=== PATIENT | male | born 1970 | race Caucasian/White ===

== ENCOUNTER → 2020-01-31 | Emergency (ER) | payer MEDICAID, OTHER ==
[~2020-01-31] VITALS: Ht 182.9 cm; Wt 86.2 kg
[~2020-01-31] MED LIST: IOHEXOL 300 MG/ML 100ML BOTTLE IJ ONE; MAGNESIUM CITRATE SOLUTION 300 ML BTL PO ONE; MORPHINE SULFATE 4 MG/ML SYR/VIAL IV ONE; ONDANSETRON HCL 4 MG/2 ML VIAL IV ONE; SODIUM CHLORIDE 0.9% 1,000 ML IVB ONE
[2020-01-31 20:45] LABS: Basophils # (auto) 0.1 10 ^3/uL (0-0.2); Basophils % (auto) 0.3 % (0.0-2.0); Eosinophils # (auto) 0 10 ^3/uL (0-0.8); Eosinophils % (auto) 0.1 % (0.0-7.0); Hematocrit 37.9 % (41.0-53.0); Hemoglobin 12.7 g/dL (13.5-17.5); Lymphocytes # (auto) 1.4 10 ^3/uL (0.4-5.4); Lymphocytes % (auto) 8.1 % (10.0-50.0); Mean Corpuscular Hemoglobin 30.3 pg (28.0-32.0); Mean Corpuscular Hgb Conc. 33.4 g/dL (32.0-36.0); Mean Corpuscular Volume 90.7 fL (80.0-100.0); Monocytes # (auto) 1.8 10 ^3/uL (0-1.3); Monocytes % (auto) 10.2 % (0.0-12.0); Neutrophils # (auto) 14.1 10 ^3/uL (1.6-8.6); Neutrophils % (auto) 81.3 % (37.0-80.0); Nucleated Red Blood Cells % 0.1 %; Platelet Count (auto) 340 10^3/uL (140-450); Red Blood Cells 4.18 10^6/uL (4.5-5.90); Red Cell Distribution Width 14.3 % (11.8-14.3); White Blood Cell 17.4 10^3/uL (4.4-10.8)
[2020-01-31 20:57] LABS: INR 1.08 (0.9-1.15); Partial Thromboplastin Time 35.5 sec (23.64-32.05)
[2020-01-31 21:00] LABS: Alanine Aminotransferase 31 U/L (16-61); Albumin 2.7 g/dL (3.4-5.0); Amylase 26 U/L (25-115); Anion Gap 9 (5-15); Aspartate Aminotransferase 13 U/L (15-37); BUN/Creatinine Ratio 16.7; Blood Urea Nitrogen 19 mg/dL (7-18); Calcium 8.7 mg/dL (8.5-10.1); Carbon Dioxide 22 mmol/L (21-32); Chloride 107 mmol/L (98-107); GFR African American 87 mL/min; GFR Non-African American 72 mL/min; Glucose 279 mg/dL (74-106); Lipase 49 U/L (73-393); Potassium 3.2 mmol/L (3.5-5.1); Sodium 138 mmol/L (136-145)
[2020-01-31 21:05] LABS: Alkaline Phosphatase 189 U/L (45-117); Bilirubin, Total 0.7 mg/dL (0.2-1.0); Total Protein 7.7 g/dL (6.4-8.2)
[2020-02-01 00:07] VITALS: BP 164/94
== END | disposition home or self-care (01) ==
LOC: EDBD 18:58 → ER 18:58
DX: K59.00 Constipation, unspecified (principal); R10.13 Epigastric pain; R11.2 Nausea with vomiting, unspecified
CPT/HCPCS: 36415; 74176; 80053; 80320; 82150; 83605; 83690; 84484; 85025; 85610; 85730; 96361; 96374; 96375; 99284; Q9967; J2405

== ENCOUNTER 2021-05-28 11:52 | Emergency (ER) | payer MEDICAID ==
[~2021-05-28] VITALS: Ht 188 cm; Wt 89.4 kg
[2021-05-28] MEDS ORDERED: SODIUM CHLORIDE 0.9% 1,000 ML IVB ONE (12:15)
[2021-05-28] MEDS ORDERED: MORPHINE SULFATE 4 MG/ML SYR/VIAL IV ONE (12:15)
[2021-05-28] MEDS ORDERED: ONDANSETRON HCL 4 MG/2 ML VIAL IV ONE (12:15)
[2021-05-28 13:17] LABS: Basophils # (auto) 0.1 10 ^3/uL (0-0.2); Basophils % (auto) 1.1 % (0.0-2.0); Eosinophils # (auto) 0 10 ^3/uL (0-0.8); Eosinophils % (auto) 0.2 % (0.0-7.0); Hematocrit 44.6 % (41.0-53.0); Hemoglobin 15.1 g/dL (13.5-17.5); Lymphocytes # (auto) 2.9 10 ^3/uL (0.4-5.4); Lymphocytes % (auto) 23.3 % (10.0-50.0); Mean Corpuscular Hemoglobin 30.4 pg (28.0-32.0); Mean Corpuscular Hgb Conc. 33.8 g/dL (32.0-36.0); Monocytes # (auto) 1.3 10 ^3/uL (0-1.3); Monocytes % (auto) 10.6 % (0.0-12.0); Neutrophils % (auto) 64.8 % (37.0-80.0); Nucleated Red Blood Cells % 0.1 %; Red Blood Cells 4.96 10^6/uL (4.5-5.90); Red Cell Distribution Width 13.5 % (11.8-14.3); White Blood Cell 12.4 10^3/uL (4.4-10.8)
[2021-05-28 13:19] VITALS: BP 125/85
[2021-05-28 13:46] LABS: Calcium 10.2 mg/dL (8.5-10.1); Potassium 3.2 mmol/L (3.5-5.1)
[2021-05-28 13:48] LABS: BUN/Creatinine Ratio 17.7; Bilirubin, Total 0.9 mg/dL (0.2-1.0)
[2021-05-28 16:52] LABS: Urine Bacteria NONE SEEN /hpf (None Seen); Urine Blood Negative /uL (Negative); Urine Hyaline Cast FEW /lpf (0 - 2); Urine Mucus FEW (None Seen); Urine Specific Gravity 1.029 (1.001-1.035); Urine WBC 2 /hpf (0 - 3)
== END 2021-05-28 16:40 | disposition left against medical advice (07) ==
LOC: ER 11:52
DX: R10.84 Generalized abdominal pain (principal); F17.210 Nicotine dependence, cigarettes, uncomplicated; F12.10 Cannabis abuse, uncomplicated; E11.9 Type 2 diabetes mellitus without complications; I10 Essential (primary) hypertension; Z20.822 Contact with and (suspected) exposure to COVID-19; Z53.29 Procedure and treatment not carried out because of patient's decision for other reasons
CPT/HCPCS: 36415; 74176; 80053; 81001; 83690; 85025; 87426; 93005

== ENCOUNTER 2021-05-29 07:38 | Emergency (ER) | payer MEDICAID ==
[~2021-05-29] VITALS: Ht 188 cm; Wt 81.2 kg
[2021-05-29] MEDS ORDERED: SODIUM CHLORIDE 0.9% 1,000 ML IV ONE (08:00)
[2021-05-29] MEDS ORDERED: DONNATAL 5ml ORAL Elix (BELLADONNA ALK-PHENOBARB) PO ONE (08:00)
[2021-05-29] MEDS ORDERED: SODIUM CHLORIDE 0.9% 500 ML IVB ONE (08:00)
[2021-05-29] MEDS ORDERED: HYDROmorphone HCL 2 MG/ML VL IV ONE (08:00)
[2021-05-29] MEDS ORDERED: METOCLOPRAMIDE HCL 5MG/ml INJ 2ml VIAL IV ONE (08:00)
[2021-05-29] MEDS ORDERED: ALUM & MAG HYDROX-SIMETH LIQ(MAALOX) 30 ML PO ONE (08:00)
[2021-05-29] MEDS ORDERED: PANTOPRAZOLE 40 MG TAB PO ONE (08:00)
[2021-05-29 09:32] LABS: Basophils # (auto) 0 10 ^3/uL (0-0.2); Basophils % (auto) 0.3 % (0.0-2.0); Eosinophils # (auto) 0.1 10 ^3/uL (0-0.8); Eosinophils % (auto) 0.6 % (0.0-7.0); Hematocrit 42.3 % (41.0-53.0); Hemoglobin 15.1 g/dL (13.5-17.5); Lymphocytes # (auto) 3.6 10 ^3/uL (0.4-5.4); Lymphocytes % (auto) 35.2 % (10.0-50.0); Mean Corpuscular Hemoglobin 31.6 pg (28.0-32.0); Mean Corpuscular Hgb Conc. 35.7 g/dL (32.0-36.0); Mean Corpuscular Volume 88.4 fL (80.0-100.0); Monocytes % (auto) 10.2 % (0.0-12.0); Neutrophils # (auto) 5.5 10 ^3/uL (1.6-8.6); Neutrophils % (auto) 53.7 % (37.0-80.0); Nucleated Red Blood Cells % 0.1 %; Red Blood Cells 4.78 10^6/uL (4.5-5.90); Red Cell Distribution Width 13.6 % (11.8-14.3); White Blood Cell 10.3 10^3/uL (4.4-10.8)
[2021-05-29 09:45] LABS: Urine WBC None Seen /hpf (0 - 3)
[2021-05-29 10:04] LABS: Albumin 3.9 g/dL (3.4-5.0); Calcium 9.6 mg/dL (8.5-10.1); Magnesium 1.8 mg/dL (1.6-2.6)
[2021-05-29 10:11] LABS: BUN/Creatinine Ratio 15.1; Bilirubin, Total 1.1 mg/dL (0.2-1.0)
[2021-05-29 10:15] LABS: Urine Bacteria NONE SEEN /hpf (None Seen); Urine Blood Negative /uL (Negative); Urine Hyaline Cast FEW /lpf (0 - 2); Urine Mucus FEW (None Seen); Urine Specific Gravity 1.023 (1.001-1.035)
[2021-05-29] MEDS ORDERED: POTASSIUM EFFERVESENT TAB 25 MEQ PO ONE (10:15)
[2021-05-29 13:15] VITALS: BP 132/84
== END 2021-05-29 14:07 | disposition home or self-care (01) ==
LOC: ER 07:38
DX: N40.0 Benign prostatic hyperplasia without lower urinary tract symptoms (principal); E11.65 Type 2 diabetes mellitus with hyperglycemia; E87.6 Hypokalemia; E87.1 Hypo-osmolality and hyponatremia; F17.210 Nicotine dependence, cigarettes, uncomplicated; F12.10 Cannabis abuse, uncomplicated
CPT/HCPCS: 36415; 71046; 80053; 81001; 82962; 83690; 83735; 85025; 93005; 96361; 96374; 96375; 99285; J1170; J2765; J7030

== ENCOUNTER 2024-08-30 12:30 | Inpatient (IN) | payer MEDICAID ==
[~2024-08-30] VITALS: Ht 185.4 cm; Wt 91.3 kg
[2024-08-30] MEDS: SODIUM CHLORIDE 0.9% 1,000 ML IV ONE (14:09)
[2024-08-30] MEDS: FAMOTIDINE (10MG/ML) 2ML VL IV ONE (14:26)
[2024-08-30] MEDS: ONDANSETRON HCL 4 MG/2 ML VIAL IV ONE (14:26)
[2024-08-30] MEDS: MORPHINE SULFATE 4 MG/ML SYR/VIAL IV ONE (14:28)
[2024-08-30 15:10] LABS: Basophils # (auto) 0 10 ^3/uL (0-0.2); Basophils % (auto) 0.2 % (0.0-2.0); Eosinophils # (auto) 0 10 ^3/uL (0-0.8); Eosinophils % (auto) 0.1 % (0.0-7.0); Hematocrit 36.7 % (41.0-53.0); Hemoglobin 12.5 g/dL (13.5-17.5); Lymphocytes # (auto) 0.9 10 ^3/uL (0.4-5.4); Lymphocytes % (auto) 6.2 % (10.0-50.0); Mean Corpuscular Hemoglobin 31.2 pg (28.0-32.0); Mean Corpuscular Hgb Conc. 33.9 g/dL (32.0-36.0); Mean Corpuscular Volume 91.9 fL (80.0-100.0); Monocytes # (auto) 1.2 10 ^3/uL (0-1.3); Neutrophils # (auto) 11.8 10 ^3/uL (1.6-8.6); Neutrophils % (auto) 84.5 % (37.0-80.0); Platelet Count (auto) 547 10^3/uL (140-450); Red Blood Cells 3.99 10^6/uL (4.5-5.90); Red Cell Distribution Width 13.8 % (11.8-14.3); White Blood Cell 13.9 10^3/uL (4.4-10.8)
[2024-08-30 15:22] LABS: Alanine Aminotransferase 24 U/L (7-40); Albumin 3.6 g/dL (3.2-4.8); Anion Gap 9 (5-15); Aspartate Aminotransferase 29 U/L (13-40); BUN/Creatinine Ratio 17.2 (10.0-20.0); Calcium 8.8 mg/dL (8.7-10.4); Carbon Dioxide 25 mmol/L (20-31); Lipase 26 U/L (12-53)
[2024-08-30 15:23] LABS: Total Protein 7.2 g/dL (5.7-8.2)
[2024-08-30 15:28] LABS: Alkaline Phosphatase 269 U/L (46-116); Bilirubin, Total 1.5 mg/dL (0.2-1.0); Blood Urea Nitrogen 26 mg/dL (9-23); Chloride 90 mmol/L (98-107); Potassium 3.1 mmol/L (3.5-5.1); Sodium 124 mmol/L (136-145)
[2024-08-30 15:30] LABS: Glucose 485 mg/dL (74-106)
[2024-08-30 15:59] LABS: Lactic Acid w/Reflex 2.3 mmol/L (0.4-2.0)
--- NOTE | 2024-08-30 16:24 | ED.PDOC ---
History of Present Illness HPI Comments 54-year-old male with HTN, DM presents with a chief complaint of nausea, vomiting, diarrhea, cough, body aches, and abdominal pain. Patient reports that his abdominal pain is localized to his lower abdomen, non-radiating, and describes as aching. Patient reports that he has had these symptoms for the past x 3 weeks. Patient is not actively vomiting upon chairside evaluation. 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 No other symptoms or modifying factors present at this time. Chief Complaint: Nausea/Vomiting Time Seen by MD: 16:09 Primary Care Provider: NONE Reviewed Notes: Medications, Allergies Allergies: Coded Allergies: NO KNOWN ALLERGIES (Unverified , 01/31/20) Information Source: Patient Mode of Arrival: Carried Severity: Moderate Timing: Days Duration: Since onset Prehospital treatment: None Past Medical History PAST MEDICAL HISTORY: DM, HTN, Denies Family History Family History: Unknown Social History Smoker: Cigarettes Alcohol: Occasionally Drugs: Marijuana, Methamphetamine Lives In: Home Constitutional: reports: others (body aches ); denies: chills, diaphoresis, fatigue, fever, malaise, sweats, weakness EENTM: denies: blurred vision, double vision, ear bleeding, ear discharge, ear drainage, ear pain, ear ringing, eye pain, eye redness, hearing loss, mouth pain, mouth swelling, nasal discharge, nose bleeding, nose congestion, nose pain, photophobia, tearing, throat pain, throat swelling, voice changes, others Respiratory: reports: cough; denies: hemoptysis, orthopnea, SOB at rest, shortness of breath, SOB with excertion, stridor, wheezing, others Cardiovascular: denies: chest pain, dizzy spells, diaphoresis, Dyspnea on exertion, edema, irregular heart beat, left arm pain, lightheadedness, palpitations, PND, syncope, others Gastrointestinal: reports: abdominal pain, diarrhea, nausea, vomiting; denies: abdomen distended, blood streaked bowels, constipated, dysphagia, difficulty swallowing, hematemesis, melena, poor appetite, poor fluid intake, rectal bleeding, rectal pain, others Genitourinary: denies: burning, dysuria, flank pain, frequency, hematuria, incontinence, penile discharge, penile sore, pain, testicle pain, testicle swelling, urgency, others Neurological: denies: dizziness, fainting, headache, left sided numbness, left sided weakness, numbness, paresthesia, pre-existing deficit, right sided numbness, right sided weakness, seizure, speech problems, tingling, tremors, weakness, others Musculoskeletal: denies: back pain, gout, joint pain, joint swelling, muscle pa in, muscle stiffness, neck pain, others Integumetry: denies: bruises, change in color, change in hair/nails, dryness, laceration, lesions, lumps, rash, wounds, others Allergic/Immunocompromised: denies: Difficulty Healing, Frequent Infections, Hives, Itching, others Hematologic/Lymphatic: denies: anemia, blood clots, easy bleeding, easy bruising, swollen glands, others Endocrine: denies: excessive hunger, excessive sweating, excessive thirst, excessive urination, flushing, intolerance to cold, intolerance to heat, unexplained weight gain, unexplained weight loss, others Psychiatric: denies: anxiety, bipolar disorder, depression, hopeless, panic disorder, schizophrenia, sleepless, suicidal, others All Other Systems: Reviewed and Negative Physical Exam General Appearance: Mild Distress HEENT: Other (Dry mucous membranes) Neck: Full Range of Motion, Normal Inspection Respiratory: Decreased Breath Sounds, No Accessory Muscle Use, No Respiratory Distress, Normal Breath Sounds Cardiovascular: No Edema, No JVD, Regular Rate/Rhythm Breast Exam: Deferred Gastrointestinal: Soft, Suprapubic, Tenderness Genitalia: Deferred Pelvic: Deferred Rectal: Deferred Extremities: Normal inspection, Normal range of motion, Non-tender, No pedal edema Neurologic: Alert (Oriented x4), Other (Moves all extremities. No gross focal deficit.) Cerebellar Function: NOT DONE Reflexes: NOT DONE Skin: Dry, Normal Color, Warm Lymphatic: NOT DONE Was a procedure done? Was a procedure done?: No Differential Dx Considerations may include: Viral syndrome, colitis, diverticulitis, appendicitis, UTI, electrolyte imbalance, dehydration, hyperglycemia, DKA, hyperglycemic hyperosmolar state, among others X-Ray, Labs, Meds, VS Vital Signs Date Time Temp Pulse Resp B/P (MAP) Pulse Ox O2 Delivery O2 Flow Rate FiO2 08/30/24 20:01 106 22 93 Nasal Cannula* 3 32 08/30/24 19:53 99.6 95 18 92/54 (67) 93 99.6 08/30/24 19:52 95 18 92/54 08/30/24 17:25 97.5 104 18 114/70 (85) 91 97.5 08/30/24 14:28 116 24 114/68 08/30/24 12:38 98.4 116 24 114/68 (83) 95 Lab Test 08/30/24 17:57 08/30/24 16:30 08/30/24 15:20 08/30/24 14:25 Range/Units Lactic Acid Level 1.5 2.3 *H 0.4-2.0 mmol/L Troponin I High Sensitivity 12 13 11 </=54 ng/L Influenza Type A Antigen Negative Negative Influenza Type B Antigen Negative Negative SARS-CoV-2 Antigen (Rapid) Negative NEGATIVE White Blood Count 13.9 H 4.4-10.8 10^3/uL Red Blood Count 3.99 L 4.5-5.90 10^6/uL Hemoglobin 12.5 L 13.5-17.5 g/dL Hematocrit 36.7 L 41.0-53.0 % Mean Corpuscular Volume 91.9 80.0-100.0 fL Mean Corpuscular Hemoglobin 31.2 28.0-32.0 pg Mean Corpuscular Hemoglobin Concent 33.9 32.0-36.0 g/dL Red Cell Distribution Width 13.8 11.8-14.3 % Platelet Count 547 H 140-450 10^3/uL Mean Platelet Volume 8.2 6.9-10.8 fL Neutrophils (%) (Auto) 84.5 H 37.0-80.0 % Lymphocytes (%) (Auto) 6.2 L 10.0-50.0 % Monocytes (%) (Auto) 9.0 0.0-12.0 % Eosinophils (%) (Auto) 0.1 0.0-7.0 % Basophils (%) (Auto) 0.2 0.0-2.0 % Neutrophils # (Auto) 11.8 H 1.6-8.6 10 ^3/uL Lymphocytes # (Auto) 0.9 0.4-5.4 10 ^3/uL Monocytes # (Auto) 1.2 0-1.3 10 ^3/uL Eosinophils # (Auto) 0 0-0.8 10 ^3/uL Basophils # (Auto) 0 0-0.2 10 ^3/uL Nucleated Red Blood Cells 0.0 % Sodium Level 124 L 136-145 mmol/L Potassium Level 3.1 L 3.5-5.1 mmol/L Chloride Level 90 L 98-107 mmol/L Carbon Dioxide Level 25 20-31 mmol/L Anion Gap 9 5-15 Blood Urea Nitrogen 26 H 9-23 mg/dL Creatinine 1.51 H 0.700-1.30 mg/dL Glomerular Filtration Rate Calc 54 >90 mL/min BUN/Creatinine Ratio 17.2 10.0-20.0 Serum Glucose 485 *H 74-106 mg/dL Calcium Level 8.8 8.7-10.4 mg/dL Total Bilirubin 1.5 H 0.2-1.0 mg/dL Aspartate Amino Transferase (AST) 29 13-40 U/L Alanine Aminotransferase (ALT) 24 7-40 U/L Alkaline Phosphatase 269 H 46-116 U/L B-Type Natriuretic Peptide 45.57 0-100 pg/mL Total Protein 7.2 5.7-8.2 g/dL Albumin 3.6 3.2-4.8 g/dL Lipase 26 12-53 U/L Current Medications Medications (Trade) Dose Ordered Sig/Alber Route Start Time Stop Time Status Last Admin Sodium Chloride 1,000 ml @ 1,000 mls/hr Q1H ONCE IV 08/30/24 13:00 08/30/24 13:59 DC 08/30/24 14:09 Ondansetron HCl (Zofran) 4 mg ONCE ONCE IV 08/30/24 13:00 08/30/24 13:01 DC 08/30/24 14:26 Morphine Sulfate 4 mg ONCE ONCE IV 08/30/24 13:00 08/30/24 13:01 DC 08/30/24 14:28 Famotidine (Pepcid Injection) 20 mg ONCE ONCE IV 08/30/24 13:00 08/30/24 13:01 DC 08/30/24 14:26 Insulin Human Regular (InsuLIN R) 10 units ONCE ONCE IV 08/30/24 16:00 08/30/24 16:19 DC 08/30/24 19:45 Potassium Bicarbonate (Klor-Con/Ef) 50 meq ONCE ONCE PO 08/30/24 16:30 08/30/24 16:31 DC 08/30/24 19:47 PROCEDURE(s): ABPL - CT AB PEL WO CON-NO ORAL OR IV REASON: lower abd pain, n/v/d ORDER NUMBER(s): [id number], ACCESSION NUMBER(s): [id number] Procedure: CT CT AB PEL WO CON-NO ORAL OR IV 08/30/2024 06:58 PM Indication: lower abd pain, n/v/d Comparison Study: CT scan of abdomen and pelvis dated 05/28/2021, chest radiograph dated 05/29/2021 Technique: Axial images were obtained and reformatted in coronal and sagittal planes. All CT scans at this medical facility are performed using dose modulation techniques as appropriate to a performed exam including the following: Automated exposure control was utilized; adjustment of the MA and/or KV according to patient size; and use of iterative reconstruction technique. CT Dose: CTDI volume is 8.71 mGy. Dose-length product is 492.8 mGy*cm FINDINGS: Lower Chest: Bilateral bronchial wall thickening and moderate pulmonary opacities. The heart is normal in size. Coronary artery calcification noted. Organ muscles deltoid and biceps really Hepatobiliary: A 2.5 cm density noted in the gallbladder fundus likely sludge. Spleen: Unremarkable. Pancreas: Unremarkable. Adrenal Glands: Unremarkable. tract: The kidneys are normal in size bilaterally without hydronephrosis or nephrolithiasis. The urinary bladder is unremarkable. GI tract: The stomach is grossly normal in appearance. No evidence of small charo wel obstruction. There is descending and sigmoid diverticulosis without diverticulitis. The appendix is normal. Lymphatics: No mesenteric, retroperitoneal or periportal lymphadenopathy. Vasculature: Aorta is normal in caliber. Scattered calcified plaques are noted. Pelvic Organs: Unremarkable Bones/soft tissues: No acute abnormality. Mild bilateral hip joint osteoarthritis. Other: None. IMPRESSION: 1. Moderate bilateral multilobar pneumonia likely atypical/viral pneumonia. Recommend clinical and biochemical correlation. 2. No acute abnormality noted in the abdomen or pelvis. 3. Gallbladder sludge versus polyp. Recommend correlation with gallbladder sonogram. Colonic diverticula without diverticulitis. X-Ray, Labs, Meds, VS Comment 54-year-old male with a history of hypertension and diabetes complaining of flu- like symptoms including cough, abdominal pain, nausea, vomiting and diarrhea Vitals remarkable for heart rate 116, respiratory rate 24 Exam remarkable for tachycardia, diminished breath sounds, lower abdominal tenderness to palpation Rhythm strip independently interpreted by me: Sinus tach, rate 112, no ectopy. CT abdomen and pelvis: IMPRESSION: 1. Moderate bilateral multilobar pneumonia likely atypical/viral pneumonia. Recommend clinical and biochemical correlation. 2. No acute abnormality noted in the abdomen or pelvis. 3. Gallbladder sludge versus polyp. Recommend correlation with gallbladder sonogram. Colonic diverticula without diverticulitis. CBC remarkable for WBC 13.9, platelets 547, CMP remarkable for sodium 124, potassium 3.1, chloride 90, BUN 26, creatinine 1.51, glucose 485, lactate 2.3, troponins negative Influenza and COVID negative Patient treated with the following in the ED: L 0.9 normal saline IV bolus, morphine 4 mg IV, Zofran 4 mg IV, Pepcid 20 mg IV, potassium 50 mEq p.o., Rocephin 1 g IV, Zithromax 500 mg IV On re-evaluation, patient was resting comfortably with stable vitals. He stated abdominal pain had improved. He was not in respiratory distress. Plan is to admit the patient for IV antibiotics and blood glucose and electrolyte correction. Case discussed with DONNIE Weaver, who agreed to admit the patient. Time of 1ST Reevaluation: 16:39 Reevaluation 1ST: Unchanged Time of 2ND Reevaluation: 20:31 Reevaluation 2ND: Improved Patient Education/Counseling: Diagnosis, Treatment, Prognosis Family Education/Counseling: No Family Present Departure 1 Departure Time of Disposition: 20:31 Impression: Primary Impression: Pneumonia Qualified Codes: J18.9 - Pneumonia, unspecified organism Additional Impressions: Electrolyte imbalance Hyperglycemia Disposition: 09 ADMITTED INPATIENT Admit to: Med Surg Condition: Guarded Critical Care Note Critical Care Time?: No Stability Stability form required: No Heart Score Heart Score: Heart Score Response (Comments) Value History N/A 0 EKG N/A 0 Age N/A 0 Risk Factors N/A 0 Troponin N/A 0 Total 0 I personally scribed for EULALIA BOWERS MD ([email or web address]) on 08/30/24 at 16:24. Electronically submitted by Linden Livingston ([email or web address]). EULALIA BOWERS MD Aug 30, 2024 16:24
[2024-08-30 17:21] LABS: COVID19 ANTIGEN SOFIA FIA NEGATIVE (NEGATIVE); Rapid Influenza A Negative (Negative); Rapid Influenza B Negative (Negative)
--- NOTE | 2024-08-30 19:31 | DVH ---
Procedure: CT CT AB PEL WO CON-NO ORAL OR IV 08/30/2024 06:58 PM Indication: lower abd pain, n/v/d Comparison Study: CT scan of abdomen and pelvis dated 05/28/2021, chest radiograph dated 05/29/2021 Technique: Axial images were obtained and reformatted in coronal and sagittal planes. All CT scans at this medical facility are performed using dose modulation techniques as appropriate t o a performed exam including the following: Automated exposure control was utilized; adjustment of th e MA and/or KV according to patient size; and use of iterative reconstruction technique. CT Dose: CTDI volume is 8.71 mGy. Dose-length product is 492.8 mGy*cm FINDINGS: Lower Chest: Bilateral bronchial wall thickening and moderate pulmonary opacities. The heart is beatriz l in size. Coronary artery calcification noted. Organ muscles deltoid and biceps really Hepatobiliary: A 2.5 cm density noted in the gallbladder fundus likely sludge. Spleen: Unremarkable. Pancreas: Unremarkable. Adrenal Glands: Unremarkable. tract: The kidneys are normal in size bilaterally without hydronephrosis or nephrolithiasis. The urinary bladder is unremarkable. GI tract: The stomach is grossly normal in appearance. No evidence of small bowel obstruction. There is descending and sigmoid diverticulosis without diverticulitis. The appendix is normal. Lymphatics: No mesenteric, retroperitoneal or periportal lymphadenopathy. Vasculature: Aorta is normal in caliber. Scattered calcified plaques are noted. Pelvic Organs: Unremarkable Bones/soft tissues: No acute abnormality. Mild bilateral hip joint osteoarthritis. Other: None. IMPRESSION: 1. Moderate bilateral multilobar pneumonia likely atypical/viral pneumonia. Recommend clinical and bi ochemical correlation. 2. No acute abnormality noted in the abdomen or pelvis. 3. Gallbladder sludge versus polyp. Recommend correlation with gallbladder sonogram. Colonic diverti cula without diverticulitis.
[2024-08-30] MEDS: InsuLIN REG 1unit/0.01ml Soln (100units/ml) IV ONE (19:45)
[2024-08-30] MEDS: POTASSIUM EFFERVESENT TAB 25 MEQ PO ONE (19:47)
[2024-08-30 20:01] VITALS: PULSE 106; RESP 22; O2SAT 93
[2024-08-30] MEDS: cefTRIAXone 1GM/50ML D5W 50 ML IV ONE ×2 (21:02→23:16)
[2024-08-30] MEDS: AZITHROMYCIN 500MG/ 250ML 250 ML IV ONE (21:32)
[2024-08-30] MEDS ORDERED: NITROGLYCERIN 0.4 MG SL TAB SL PRN (22:45)
[2024-08-30] MEDS ORDERED: ONDANSETRON HCL 4 MG/2 ML VIAL IV PRN (22:45)
[2024-08-30] MEDS ORDERED: DOCUSATE SOD 100 MG CAP PO PRN (22:45)
[2024-08-30] MEDS ORDERED: MORPHINE SULFATE INJ 2 MG/ml SYRG IV PRN (22:45)
[2024-08-30] MEDS ORDERED: DEXTROSE (50%) 50ML SYRG IV PRN (22:45)
[2024-08-30 23:11] VITALS: BP 92/54; PULSE 106; RESP 20; O2SAT 93
[2024-08-31] VITALS (9 sets, daily range): BP systolic 114–119; BP diastolic 65–71; PULSE 86–107; RESP 13–20; TEMP 97.5–100.7; O2SAT 91–98
[2024-08-31] MEDS: ACCU-CHEK COMFORT CURVE STRIP VI SCH
--- NOTE | 2024-08-31 00:17 | DVHHP2 ---
STEVIE GRIFFIN TABLEMAN 08/31/24 0017: History of Present Illness Reason for Visit: Flu like symptoms History of Present Illness 54 year-old male with medical history of uncontrolled DM presents with complaints Of generalized bodyaches, nausea, vomiting, Cough, congestion Over the previous three weeks. Patient state symptoms have worsened on the day of arrival. At this time patient endorses he does not follow up with PCP. The emergency department of evaluation BG 485 without Metabolic acidosis. Patient also found to be mildly hypoxic requires supplemental oxygen at 2 L nasal cannula To maintain oxygen saturation 94%. Patient Denies Dizziness, syncope, Chest pain, Palpitations, leg swelling, Endocrine: Diabetes Smoke: 1 pack per day ALCOHOL: occassional Drugs: Other (Marijuana, methamphetamines) Lives: with Family Review of Systems Constitutional: Yes: Weakness, Malaise; No: Fever, Chills, Sweats, Other Eyes: No: Pain, Vision change, Conjunctivae inflammation, Eyelid inflammation, Other, Redness ENT: No: Ear pain, Ear discharge, Nose pain, Nose discharge, Nose congestion, Mouth pain, Mouth swelling, Throat pain, Throat swelling, Other Respiratory: Cough; No: Dry, Shortness of breath, SOB with excertion, Wheezing, Hemoptysis, Pleuritic Pain, Sputum, Wheezing, Other Cardiovascular: No: Chest Pain, Palpitations, Orthopnea, Paroxysmal Noc. Dyspnea, Edema, Lt Headedness, Other Gastrointestinal: Nausea, Vomiting, Diarrhea; No: Abdominal Pain, Constipation, Melena, Hematochezia, Other Genitourinary: No Dysuria, No Frequency, No Incontinence, No Hematuria, No Retention, No Other Musculoskeletal: No: other, neck pain, shoulder pain, arm pain, back pain, hand pain, leg pain, foot pain Skin: No: Rash, Lesions, Jaundice, Bruising, Other Neurological: No: Weakness, Numbness, Incoordination, Change in speech, Confusion, Seizures, Other Allergies: Coded Allergies: NO KNOWN ALLERGIES (Unverified , 01/31/20) Medications Current Medications Medications Dose Ordered Sig/Alber Route Start Time Stop Time Status Last Admin Dose Admin Sodium Chloride 1,000 ml @ 100 mls/hr Q10H IV 08/30/24 22:45 Docusate Sodium 100 mg BIDPRN PRN PO 08/30/24 22:45 Acetaminophen 650 mg Q6HP PRN PO 08/30/24 22:45 Acetaminophen/ Hydrocodone Bitart 1 tab Q4HP PRN PO 08/30/24 22:45 Ondansetron HCl 4 mg Q4HP PRN IV 08/30/24 22:45 Enoxaparin Sodium 40 mg DAILY SC 08/31/24 10:00 Nitroglycerin 0.4 mg Q5MINP PRN SL 08/30/24 22:45 Morphine Sulfate 2 mg Q30M PRN IV 08/30/24 22:45 Diagnostic Test (Pha) 1 strip IQ4HR 08/31/24 00:00 Insulin Human Regular IQ4HR SC 08/31/24 00:00 Dextrose 50 ml UD PRN IV 08/30/24 22:45 Azithromycin 250 ml @ 125 mls/hr DAILY IV 08/31/24 10:00 Albuterol 2.5 mg Q4HPRN PRN NEB 08/30/24 22:45 Ipratropium Rousseau 0.5 mg Q4HPRN PRN NEB 08/30/24 22:45 Exam Vital Signs Vital Signs Date Time Temp Pulse Resp B/P (MAP) Pulse Ox O2 Delivery O2 Flow Rate FiO2 08/30/24 23:11 106 20 92/54 93 3.0 32 08/30/24 20:01 Nasal Cannula* 08/30/24 19:53 99.6 99.6 General Appearance: Alert, Oriented X3, Cooperative, mild distress HEENT: Atraumatic, PERRLA, EOMI Respiratory: Clear to auscultation, Normal air movement Cardiovascular: Regular rate, Normal S1, Normal S2 Abdominal: Normal bowel sounds, Soft, No tenderness Extremities: No clubbing, No cyanosis Skin: No rashes, No breakdown Neuro: Normal speech Labs/Xrays Labs Test 08/30/24 17:57 08/30/24 16:30 08/30/24 14:25 Range/Units Lactic Acid Level 1.5 0.4-2.0 mmol/L Troponin I High Sensitivity 12 </=54 ng/L Influenza Type A Antigen Negative Negative Influenza Type B Antigen Negative Negative SARS-CoV-2 Antigen (Rapid) Negative NEGATIVE White Blood Count 13.9 H 4.4-10.8 10^3/uL Red Blood Count 3.99 L 4.5-5.90 10^6/uL Hemoglobin 12.5 L 13.5-17.5 g/dL Hematocrit 36.7 L 41.0-53.0 % Mean Corpuscular Volume 91.9 80.0-100.0 fL Mean Corpuscular Hemoglobin 31.2 28.0-32.0 pg Mean Corpuscular Hemoglobin Concent 33.9 32.0-36.0 g/dL Red Cell Distribution Width 13.8 11.8-14.3 % Platelet Count 547 H 140-450 10^3/uL Mean Platelet Volume 8.2 6.9-10.8 fL Neutrophils (%) (Auto) 84.5 H 37.0-80.0 % Lymphocytes (%) (Auto) 6.2 L 10.0-50.0 % Monocytes (%) (Auto) 9.0 0.0-12.0 % Eosinophils (%) (Auto) 0.1 0.0-7.0 % Basophils (%) (Auto) 0.2 0.0-2.0 % Neutrophils # (Auto) 11.8 H 1.6-8.6 10 ^3/uL Lymphocytes # (Auto) 0.9 0.4-5.4 10 ^3/uL Monocytes # (Auto) 1.2 0-1.3 10 ^3/uL Eosinophils # (Auto) 0 0-0.8 10 ^3/uL Basophils # (Auto) 0 0-0.2 10 ^3/uL Nucleated Red Blood Cells 0.0 % Sodium Level 124 L 136-145 mmol/L Potassium Level 3.1 L 3.5-5.1 mmol/L Chloride Level 90 L 98-107 mmol/L Carbon Dioxide Level 25 20-31 mmol/L Anion Gap 9 5-15 Blood Urea Nitrogen 26 H 9-23 mg/dL Creatinine 1.51 H 0.700-1.30 mg/dL Glomerular Filtration Rate Calc 54 >90 mL/min BUN/Creatinine Ratio 17.2 10.0-20.0 Serum Glucose 485 *H 74-106 mg/dL Calcium Level 8.8 8.7-10.4 mg/dL Total Bilirubin 1.5 H 0.2-1.0 mg/dL Aspartate Amino Transferase (AST) 29 13-40 U/L Alanine Aminotransferase (ALT) 24 7-40 U/L Alkaline Phosphatase 269 H 46-116 U/L B-Type Natriuretic Peptide 45.57 0-100 pg/mL Total Protein 7.2 5.7-8.2 g/dL Albumin 3.6 3.2-4.8 g/dL Lipase 26 12-53 U/L Assessment/Plan Assessment/Plan Medical noncompliance Uncontrolled DM with hyperglycemia Bilateral pneumonia Hyponatremia Hypokalemia Plan Admit telemetry Bronchodilators. As needed supplemental O2 to maintain O2 saturation greater Than 93%. RT monitoring. IV ABX. IVF Blood glucose check every four hours with low-dose regular insulin sliding scale for optimal glycemic management. Monitor BMP. Correct electrolytes as needed. GI ppx protonix / DVT ppx lovenox Plan discussed with: Patient My Orders Orders - STEVIE GRIFFIN NP Procedure Category Date Status Time Admit ADMIT 08/30/24 Transmitted 22:38 Code Status CODE 08/30/24 Transmitted 22:38 Vital Signs MARGRET 08/30/24 In Process 22:38 Review Orders With MARGRET 08/30/24 In Process Adm. 22:38 Encourage Activity As MARGRET 08/30/24 In Process Tolerate 22:38 Npo (Nothing By DIET 08/31/24 Transmitted Mouth) Diet Breakfast Sodium Chloride 0.9% PHA 08/30/24 In Process 22:45 Oxygen By Face Mask RT 08/30/24 Transmitted 22:38 Docusate Sodium PHA 08/30/24 In Process Capsule (Colace 22:45 Acetaminophen Tablet PHA 08/30/24 In Process (Tylenol Tablet) 22:45 Notify Of Changes MARGRET 08/30/24 In Process From Base 22:38 Advance Directive MARGRET 08/30/24 In Process 22:38 Basic Metabolic Panel LAB 08/31/24 Logged 05:00 Basic Metabolic Panel LAB 09/01/24 Verified 05:00 Basic Metabolic Panel LAB 09/02/24 Verified 05:00 Complete Blood Count LAB 08/31/24 Logged 05:00 Complete Blood Count LAB 09/01/24 Verified 05:00 Complete Blood Count LAB 09/02/24 Verified 05:00 Patient Condition ORDERS 08/30/24 Transmitted 22:38 Allergies MARGRET 08/30/24 In Process 22:38 Hydrocodone-Acet PHA 08/30/24 In Process 5/325mg Tab ([place] 22:45 Ondansetron Hcl PHA 08/30/24 In Process (Zofran) 22:45 Enoxaparin Sodium PHA 08/31/24 In Process (Lovenox) 10:00 Nitroglycerin PHA 08/30/24 In Process Sublingual (Ntrostat 22:45 Morphine Sulfate PHA 08/30/24 In Process Injection 22:45 Stat Ekg For Chest MARGRET 08/30/24 In Process Pain 22:38 Notify Of Changes MARGRET 08/30/24 In Process From Base 22:38 Credit Collection Specialist For MARGRET 08/30/24 In Process 24 Hours 22:38 Emergency Dysrhythmia MARGRET 08/30/24 In Process Protocol 22:38 Rhythm Strips Once MARGRET 08/30/24 In Process Every Shift 22:38 Oxygen By Nasal RT 08/30/24 Transmitted Cannula 22:38 Glucose Blood PHA 08/31/24 In Process (Accu-Chek Comfort 00:00 Insulin R (Human) PHA 08/31/24 In Process (Insulin R) 00:00 Dextrose 50% Syringe PHA 08/30/24 In Process 22:45 Azithromycin 500mg/ PHA 08/31/24 In Process 250ml (Zithromax 50 10:00 Albuterol Medneb PHA 08/30/24 In Process (Ventolin Medneb) 22:45 Ipratropium Medneb PHA 08/30/24 In Process (Atrovent Medneb) 22:45 Date of Service: Aug 31, 2024 Billing Provider: PHIL GARCIA MD Common Visit Codes: NOT BILLABLE PHIL GARCIA MD 08/31/24 1620: Review of Systems Allergies: Coded Allergies: NO KNOWN ALLERGIES (Unverified , 01/31/20) Additional Comments Additional Comments Additional Comments Patient's chart is reviewed and discussed with the nurse practitioner. Patient is seen evaluated and admitted by nurse practitioner this morning. I agree with his evaluation, documentation, assessment and care plan as outlined. STEVIE GRIFFIN NP Aug 31, 2024 00:17 PHIL GARCIA MD Aug 31, 2024 16:20
[2024-08-31] MEDS: SODIUM CHLORIDE 0.9% 1,000 ML IV SCH (02:18)
[2024-08-31] MEDS: InsuLIN REG 1unit/0.01ml Soln (100units/ml) SC SCH (03:04)
[2024-08-31] MEDS: ALBUTEROL SULF 2.5 MG/0.5ML(0.5%) NEB SOLN NEB PRN (05:48)
[2024-08-31] MEDS: IPRATROPIUM BROM 0.5 MG/2.5ML INH SOL NEB PRN (05:48)
[2024-08-31 06:42] LABS: Basophils # (auto) 0 10 ^3/uL (0-0.2); Eosinophils # (auto) 0 10 ^3/uL (0-0.8); Eosinophils % (auto) 0.1 % (0.0-7.0); Hemoglobin 11.3 g/dL (13.5-17.5); Lymphocytes # (auto) 1.9 10 ^3/uL (0.4-5.4); Mean Corpuscular Volume 91.1 fL (80.0-100.0)
[2024-08-31 06:52] LABS: Anion Gap 9 (5-15); Carbon Dioxide 30 mmol/L (20-31)
[2024-08-31 06:54] LABS: Calcium 8.6 mg/dL (8.7-10.4); Chloride 93 mmol/L (98-107); Potassium 3.3 mmol/L (3.5-5.1); Sodium 132 mmol/L (136-145)
[2024-08-31 06:58] LABS: BUN/Creatinine Ratio 23.4 (10.0-20.0)
[2024-08-31 06:59] LABS: Blood Urea Nitrogen 32 mg/dL (9-23)
[2024-08-31 07:03] LABS: Glucose 216 mg/dL (74-106)
[2024-08-31 07:09] LABS: Basophils % (auto) 0.1 % (0.0-2.0); Hematocrit 32.7 % (41.0-53.0); Lymphocytes % (auto) 10.7 % (10.0-50.0); Mean Corpuscular Hemoglobin 31.5 pg (28.0-32.0); Mean Corpuscular Hgb Conc. 34.6 g/dL (32.0-36.0); Monocytes # (auto) 1.5 10 ^3/uL (0-1.3); Monocytes % (auto) 8.4 % (0.0-12.0); Neutrophils # (auto) 14.2 10 ^3/uL (1.6-8.6); Neutrophils % (auto) 80.7 % (37.0-80.0); Platelet Count (auto) 572 10^3/uL (140-450); Red Blood Cells 3.59 10^6/uL (4.5-5.90); Red Cell Distribution Width 13.7 % (11.8-14.3); White Blood Cell 17.7 10^3/uL (4.4-10.8)
[2024-08-31] MEDS: POTASSIUM CHL 20 Meq TABLET PO ONE (07:32)
[2024-08-31] MEDS: guaiFENesin-DM 100/10mg/5ml SYR PO PRN (07:33)
[2024-08-31] MEDS: ENOXAPARIN SOD 40 MG/0.4 ML SYRINGE SC SCH (10:38)
[2024-08-31] MEDS: AZITHROMYCIN 500MG/ 250ML 250 ML IV SCH (10:38)
[2024-08-31] MEDS: ACETAMINOPHEN 325 MG TAB PO PRN (10:52)
--- NOTE | 2024-08-31 11:07 | DVH ---
XY CHEST XRAY 1 VIEW, HISTORY: pneumonia COMPARISON: None None TECHNICAL DATA: 1 view of the chest was obtained. FINDINGS: Lines and tubes: None Cardiomediastinal silhouette: Enlarged Pulmonary vasculature: normal Lung expansion: normal Lung airspace: Multifocal bilateral airspace opacities. Lung interstitium: normal Pleura: normal Pneumothorax: no Bones: Unremarkable Other: no IMPRESSION: Multifocal bilateral airspace opacities could be due to pneumonia.
[2024-08-31] MEDS ORDERED: VANCOMYCIN PER PHARMACY 0 MG IV SCH (15:30)
[2024-08-31] MEDS: VANCOMYCIN 1GM/250ML KIT 250 ML IV SCH (16:59)
--- NOTE | 2024-08-31 21:10 | DVHINCON2 ---
Date of service: Aug 31, [address] Barboza Reason for Consultation Flu-like symptoms History of Present Illness Patient is a 54-year-old male presents to the hospital for the complaint of generalized bodyaches, nausea, vomiting, cough and congestion for the previous 3 weeks. Patient state symptoms have worsened on the day of arrival. He is not following his PCP currently. The emergency department of evaluation BG 485 without Metabolic acidosis. Patient also found to be mildly hypoxic requires supplemental oxygen at 2 L nasal cannula to maintain oxygen saturation 94%. Patient is on nasal cannula. He has fever. Past Medical History Patient's past medical history is significant for Diabetes mellitus Family History: Diabetes mellitus G8 MOTHER Hypertension G8 MOTHER Social History Smoke: 1 pack per day ALCOHOL: occassional Drugs: Other (Marijuana, methamphetamines) Lives: with Family Allergies: Coded Allergies: NO KNOWN ALLERGIES (Unverified , 01/31/20) Home Meds No Active Prescriptions or Reported Meds Current Medications Current Medications Medications (Trade) Dose Ordered Sig/Alber Route PRN Reason Start Time Stop Time Status Last Admin Sodium Chloride 1,000 ml @ 100 mls/hr Q10H IV 08/30/24 22:45 08/31/24 15:41 Docusate Sodium (Colace Capsule) 100 mg BIDPRN PRN PO FOR CONSTIPATION 08/30/24 22:45 Acetaminophen (Tylenol Tablet) 650 mg Q6HP PRN PO PAIN SCALE 1-3 OR TEMP>100.4 08/30/24 22:45 08/31/24 10:52 Acetaminophen/ Hydrocodone Bitart ([place] 5/325MG Tab) 1 tab Q4HP PRN PO MODERATE PAIN (4-6 PAIN SCALE) 08/30/24 22:45 Ondansetron HCl (Zofran) 4 mg Q4HP PRN IV NAUSEA / VOMITING 08/30/24 22:45 Enoxaparin Sodium (Lovenox) 40 mg DAILY SC 08/31/24 10:00 08/31/24 10:38 Nitroglycerin (Ntrostat Sublingual) 0.4 mg Q5MINP PRN SL FOR CHEST PAIN 08/30/24 22:45 Morphine Sulfate 2 mg Q30M PRN IV FOR CHEST PAIN 08/30/24 22:45 Diagnostic Test (Pha) (Accu-Chek Comfort Curve T) 1 strip IQ4HR 08/31/24 00:00 08/31/24 16:44 Insulin Human Regular (InsuLIN R) IQ4HR SC 08/31/24 00:00 08/31/24 16:55 Dextrose 50 ml UD PRN IV Blood Sugar LESS THAN 60 08/30/24 22:45 Azithromycin 250 ml @ 125 mls/hr DAILY IV 08/31/24 10:00 08/31/24 10:38 Albuterol (Ventolin Medneb) 2.5 mg Q4HPRN PRN NEB sob 08/30/24 22:45 08/31/24 05:48 Ipratropium [place] (Atrovent Medneb) 0.5 mg Q4HPRN PRN NEB SHORTNESS OF BREATH 08/30/24 22:45 08/31/24 05:48 Ceftriaxone Sodium 50 ml @ 100 mls/hr DAILY@2100 IV 08/31/24 21:00 Guaifenesin/ Dextromethorphan (Robitussin-Dm Liquid) 10 ml Q6HPRN PRN PO FOR COUGH 08/31/24 07:15 08/31/24 07:33 Vancomycin HCl 0 ml @ 0 mls/hr UD IV 08/31/24 15:30 Methylprednisolone Sodium Succinate (Solu Medrol) 20 mg BID IV 08/31/24 22:00 Vancomycin HCl 250 ml @ 250 mls/hr Q1H IV 08/31/24 16:00 08/31/24 17:59 DC 08/31/24 18:48 Vancomycin HCl 250 ml @ 250 mls/hr Q12H IV 09/01/24 05:00 Review of Systems Constitutional: Yes: Weakness, Malaise; No: Fever, Chills, Sweats, Other Eyes: No: Pain, Vision change, Conjunctivae inflammation, Eyelid inflammation, Other, Redness ENT: No: Ear pain, Ear discharge, Nose pain, Nose discharge, Nose congestion, Mouth pain, Mouth swelling, Throat pain, Throat swelling, Other Respiratory: Cough; No: Dry, Shortness of breath, SOB with excertion, Wheezing, Hemoptysis, Pleuritic Pain, Sputum, Wheezing, Other Cardiovascular: No: Chest Pain, Palpitations, Orthopnea, Paroxysmal Noc. Dyspnea, Edema, Lt Headedness, Other Gastrointestinal: Nausea, Vomiting, Diarrhea; No: Abdominal Pain, Constipation, Melena, Hematochezia, Other Genitourinary: No Dysuria, No Frequency, No Incontinence, No Hematuria, No Retention, No Other Musculoskeletal: No: other, neck pain, shoulder pain, arm pain, back pain, hand pain, leg pain, foot pain Skin: No: Rash, Lesions, Jaundice, Bruising, Other Neurological: No: Weakness, Numbness, Incoordination, Change in speech, Confusion, Seizures, Other Vital Signs Vital Signs Date Time Temp Pulse Resp B/P (MAP) Pulse Ox O2 Delivery O2 Flow Rate FiO2 08/31/24 19:47 94 Nasal Cannula 3.0 08/31/24 19:47 32 08/31/24 18:07 86 20 08/31/24 18:00 97.5 119/71 (87) 97.5 Physical Exam General Appearance: Alert, Oriented X3, Cooperative, mild distress HEENT: Atraumatic, PERRLA, EOMI Respiratory: Clear to auscultation, Normal air movement Cardiovascular: Regular rate, Normal S1, Normal S2 Abdominal: Normal bowel sounds, Soft, No tenderness Extremities: No clubbing, No cyanosis Skin: No rashes, No breakdown Neuro: Normal speech Labs/Diagnostic Data Labs Test 08/31/24 12:25 08/31/24 05:15 08/30/24 17:57 08/30/24 16:30 Range/Units POC Glucose 220 H 70-106 mg/dl White Blood Count 17.7 #H 4.4-10.8 10^3/uL Red Blood Count 3.59 L 4.5-5.90 10^6/uL Hemoglobin 11.3 L 13.5-17.5 g/dL Hematocrit 32.7 #L 41.0-53.0 % Mean Corpuscular Volume 91.1 80.0-100.0 fL Mean Corpuscular Hemoglobin 31.5 28.0-32.0 pg Mean Corpuscular Hemoglobin Concent 34.6 32.0-36.0 g/dL Red Cell Distribution Width 13.7 11.8-14.3 % Platelet Count 572 H 140-450 10^3/uL Mean Platelet Volume 8.0 6.9-10.8 fL Neutrophils (%) (Auto) 80.7 H 37.0-80.0 % Lymphocytes (%) (Auto) 10.7 10.0-50.0 % Monocytes (%) (Auto) 8.4 0.0-12.0 % Eosinophils (%) (Auto) 0.1 0.0-7.0 % Basophils (%) (Auto) 0.1 0.0-2.0 % Neutrophils # (Auto) 14.2 H 1.6-8.6 10 ^3/uL Lymphocytes # (Auto) 1.9 0.4-5.4 10 ^3/uL Monocytes # (Auto) 1.5 H 0-1.3 10 ^3/uL Eosinophils # (Auto) 0 0-0.8 10 ^3/uL Basophils # (Auto) 0 0-0.2 10 ^3/uL Nucleated Red Blood Cells 0.0 % Sodium Level 132 #L 136-145 mmol/L Potassium Level 3.3 L 3.5-5.1 mmol/L Chloride Level 93 L 98-107 mmol/L Carbon Dioxide Level 30 20-31 mmol/L Anion Gap 9 5-15 Blood Urea Nitrogen 32 H 9-23 mg/dL Creatinine 1.37 H 0.700-1.30 mg/dL Glomerular Filtration Rate Calc 61 >90 mL/min BUN/Creatinine Ratio 23.4 H 10.0-20.0 Serum Glucose 216 #H 74-106 mg/dL Calcium Level 8.6 L 8.7-10.4 mg/dL Lactic Acid Level 1.5 0.4-2.0 mmol/L Troponin I High Sensitivity 12 </=54 ng/L Influenza Type A Antigen Negative Negative Influenza Type B Antigen Negative Negative SARS-CoV-2 Antigen (Rapid) Negative NEGATIVE Test 08/30/24 14:25 Range/Units Total Bilirubin 1.5 H 0.2-1.0 mg/dL Aspartate Amino Transferase (AST) 29 13-40 U/L Alanine Aminotransferase (ALT) 24 7-40 U/L Alkaline Phosphatase 269 H 46-116 U/L B-Type Natriuretic Peptide 45.57 0-100 pg/mL Total Protein 7.2 5.7-8.2 g/dL Albumin 3.6 3.2-4.8 g/dL Lipase 26 12-53 U/L Microbiology Date/Time Source Procedure Growth Status 08/30/24 14:35 Blood Blood Culture - Preliminary Resulted Assessment Patient is a 54-year-old male presents to the hospital with: Sepsis Bilateral pneumonia Uncontrolled DM with hyperglycemia Medical noncompliance Hyponatremia Hypokalemia MYA Recommendations: Current broad spectrum Antibiotics: IV Vancomycin; monitor trough IV Ceftriaxone Azithromycin f/u / covid : negative Blood cultures ordered; will follow 08/30, Abdomen/Pelvis CT reviewed personally shows Moderate bilateral multilobar pneumonia likely atypical/viral pneumonia. 08/31, Chest x-ray showed Multifocal bilateral airspace opacities could be due to pneumonia. Thank you for consult. Plan discussed with: Patient JOSEPH CASTRO MD Aug 31, 2024 21:10
[2024-08-31] MEDS: cefTRIAXone 1GM/50ML D5W 50 ML IV SCH (21:19)
[2024-08-31] MEDS: methylPREDNISolone SOD SUCC 40 MG/ML VL IV SCH (21:19)
--- NOTE | 2024-08-31 22:48 | DVHINCON2 ---
Date of service: Aug 31, 2024 Referring Physician Emmett Weaver NP Reason for Consultation Acute hypoxic respiratory failure, pneumonia History of Present Illness A 54 year-old man with PMHx of uncontrolled DM who presented to ED on 08/30/24 with c/o generalized body aches, nausea, vomiting, cough, congestion x3 weeks. Patient stated symptoms worsened on the day of arrival. Patient does not follow up with PCP. ED workup showed BG of 485 without metabolic acidosis. Patient was also found to be mildly hypoxic requiring supplemental oxygen at 2 L nasal cannula to maintain oxygen saturation 94%. Denied Dizziness, syncope, Chest pain, Palpitations, leg swelling, Patient was admitted for further care and pulmonary consultation is requested for evaluation and management due to the above findings. Review of Systems: 14-point review of systems negative unless otherwise noted above. Past Medical History: DM type II,uncontrolled. Past Surgical History: None. Medications: Reviewed. Allergies: No known drug allergies. Family History: HTN, diabetes. Social History: Smoker, 1 pack per day. Occasional alcohol use. Drugs: Other (Marijuana, methamphetamines) Family History: Diabetes mellitus G8 MOTHER Hypertension G8 MOTHER Allergies: Coded Allergies: NO KNOWN ALLERGIES (Unverified , 01/31/20) Home Meds No Active Prescriptions or Reported Meds Current Medications Current Medications Medications (Trade) Dose Ordered Sig/Alber Route PRN Reason Start Time Stop Time Status Last Admin Sodium Chloride 1,000 ml @ 100 mls/hr Q10H IV 08/30/24 22:45 08/31/24 15:41 Docusate Sodium (Colace Capsule) 100 mg BIDPRN PRN PO FOR CONSTIPATION 08/30/24 22:45 Acetaminophen (Tylenol Tablet) 650 mg Q6HP PRN PO PAIN SCALE 1-3 OR TEMP>100.4 08/30/24 22:45 08/31/24 21:19 Acetaminophen/ Hydrocodone Bitart ([place] 5/325MG Tab) 1 tab Q4HP PRN PO MODERATE PAIN (4-6 PAIN SCALE) 08/30/24 22:45 Ondansetron HCl (Zofran) 4 mg Q4HP PRN IV NAUSEA / VOMITING 08/30/24 22:45 Enoxaparin Sodium (Lovenox) 40 mg DAILY SC 08/31/24 10:00 08/31/24 10:38 Nitroglycerin (Ntrostat Sublingual) 0.4 mg Q5MINP PRN SL FOR CHEST PAIN 08/30/24 22:45 Morphine Sulfate 2 mg Q30M PRN IV FOR CHEST PAIN 08/30/24 22:45 Diagnostic Test (Pha) (Accu-Chek Comfort Curve T) 1 strip IQ4HR 08/31/24 00:00 08/31/24 20:00 Insulin Human Regular (InsuLIN R) IQ4HR SC 08/31/24 00:00 08/31/24 21:30 Dextrose 50 ml UD PRN IV Blood Sugar LESS THAN 60 08/30/24 22:45 Azithromycin 250 ml @ 125 mls/hr DAILY IV 08/31/24 10:00 08/31/24 10:38 Albuterol (Ventolin Medneb) 2.5 mg Q4HPRN PRN NEB sob 08/30/24 22:45 08/31/24 05:48 Ipratropium [place] (Atrovent Medneb) 0.5 mg Q4HPRN PRN NEB SHORTNESS OF BREATH 08/30/24 22:45 08/31/24 05:48 Ceftriaxone Sodium 50 ml @ 100 mls/hr DAILY@2100 IV 08/31/24 21:00 08/31/24 21:19 Guaifenesin/ Dextromethorphan (Robitussin-Dm Liquid) 10 ml Q6HPRN PRN PO FOR COUGH 08/31/24 07:15 08/31/24 07:33 Vancomycin HCl 0 ml @ 0 mls/hr UD IV 08/31/24 15:30 Methylprednisolone Sodium Succinate (Solu Medrol) 20 mg BID IV 08/31/24 22:00 08/31/24 21:19 Vancomycin HCl 250 ml @ 250 mls/hr Q1H IV 08/31/24 16:00 08/31/24 17:59 DC 08/31/24 18:48 Vancomycin HCl 250 ml @ 250 mls/hr Q12H IV 09/01/24 05:00 Vital Signs Vital Signs Date Time Temp Pulse Resp B/P (MAP) Pulse Ox O2 Delivery O2 Flow Rate FiO2 08/31/24 21:19 100.7 08/31/24 19:47 94 Nasal Cannula 3.0 08/31/24 19:47 32 08/31/24 18:07 86 20 08/31/24 18:00 119/71 (87) Physical Exam Gen.: Patient lying in bed in no apparent distress. On supplemental oxygen. Head: Normocephalic, atraumatic. Eyes: EOMI/PERRLA. Ears: Normal hearing. Normal anatomy. Neck/trachea: Trachea midline, supple. Nose: Normal external anatomy. Mouth: Moist mucous membranes. Chest: Decreased air entry bilaterally. No wheezing or rhonchi. Cardiovascular: Positive S1, positive S2. Regular rate and rhythm. Abdomen: Positive bowel sounds in all 4 quadrants. Soft, non-tender, non- distended. : Deferred. Rectal: Deferred. Skin: Warm, dry. Intact. Extremities: 2+ radial pulses bilaterally. No lower extremity edema. Neuro: Awake, alert, oriented x3. No gross motor or sensory deficits. Cranial nerves II through XII intact. Gait not assessed. Labs/Diagnostic Data Labs Test 08/31/24 21:11 08/31/24 05:15 08/30/24 17:57 08/30/24 16:30 Range/Units POC Glucose 239 H 70-106 mg/dl White Blood Count 17.7 #H 4.4-10.8 10^3/uL Red Blood Count 3.59 L 4.5-5.90 10^6/uL Hemoglobin 11.3 L 13.5-17.5 g/dL Hematocrit 32.7 #L 41.0-53.0 % Mean Corpuscular Volume 91.1 80.0-100.0 fL Mean Corpuscular Hemoglobin 31.5 28.0-32.0 pg Mean Corpuscular Hemoglobin Concent 34.6 32.0-36.0 g/dL Red Cell Distribution Width 13.7 11.8-14.3 % Platelet Count 572 H 140-450 10^3/uL Mean Platelet Volume 8.0 6.9-10.8 fL Neutrophils (%) (Auto) 80.7 H 37.0-80.0 % Lymphocytes (%) (Auto) 10.7 10.0-50.0 % Monocytes (%) (Auto) 8.4 0.0-12.0 % Eosinophils (%) (Auto) 0.1 0.0-7.0 % Basophils (%) (Auto) 0.1 0.0-2.0 % Neutrophils # (Auto) 14.2 H 1.6-8.6 10 ^3/uL Lymphocytes # (Auto) 1.9 0.4-5.4 10 ^3/uL Monocytes # (Auto) 1.5 H 0-1.3 10 ^3/uL Eosinophils # (Auto) 0 0-0.8 10 ^3/uL Basophils # (Auto) 0 0-0.2 10 ^3/uL Nucleated Red Blood Cells 0.0 % Sodium Level 132 #L 136-145 mmol/L Potassium Level 3.3 L 3.5-5.1 mmol/L Chloride Level 93 L 98-107 mmol/L Carbon Dioxide Level 30 20-31 mmol/L Anion Gap 9 5-15 Blood Urea Nitrogen 32 H 9-23 mg/dL Creatinine 1.37 H 0.700-1.30 mg/dL Glomerular Filtration Rate Calc 61 >90 mL/min BUN/Creatinine Ratio 23.4 H 10.0-20.0 Serum Glucose 216 #H 74-106 mg/dL Calcium Level 8.6 L 8.7-10.4 mg/dL Lactic Acid Level 1.5 0.4-2.0 mmol/L Troponin I High Sensitivity 12 </=54 ng/L Influenza Type A Antigen Negative Negative Influenza Type B Antigen Negative Negative SARS-CoV-2 Antigen (Rapid) Negative NEGATIVE Test 08/30/24 14:25 Range/Units Total Bilirubin 1.5 H 0.2-1.0 mg/dL Aspartate Amino Transferase (AST) 29 13-40 U/L Alanine Aminotransferase (ALT) 24 7-40 U/L Alkaline Phosphatase 269 H 46-116 U/L B-Type Natriuretic Peptide 45.57 0-100 pg/mL Total Protein 7.2 5.7-8.2 g/dL Albumin 3.6 3.2-4.8 g/dL Lipase 26 12-53 U/L Microbiology Date/Time Source Procedure Growth Status 08/30/24 14:35 Blood Blood Culture - Preliminary Resulted Assessment Impression: Acute hypoxic respiratory failure Dependence on supplemental oxygen Pneumonia, likely gram negative Methamphetamine use GGO on imaging Nicotine dependence Marijuana, methamphetamine abuse Plan: Supplemental oxygen 3 LPM NC Titrate to keep O2 sats above 92%. Taper O2 as tolerated. CXR notable for Multifocal bilateral airspace opacities. No effusion/pneumothorax. CT chest showed findings c/w multifocal pneumonia Check UDS. Continue bronchodilators. Continue antibiotics IV steroids Antitussive for cough Monitor renal function. Monitor electrolytes. Supplement as necessary. Monitor ins and outs. Smoking cessation discussed for greater than 10 minutes DVT prophylaxis. Prognosis: Poor given patient's multiple co-morbidities. Rest of plan per hospitalist and other consultants. Thank you, DONNIE Weaver, for allowing me to participate in this patient's care. Further recommendations will depend on the patient's clinical course. Please do not hesitate to contact me if you have any questions or concerns. This medical document was created using an electronic medical record system with [employer] dictation system. Although these documentations are being carefully reviewed, there may still be some phonetic and typographical changes. The errors are purely typographical, due to imperfection on the software program, and do not reflect any compromise in the patient's medical care. Plan discussed with: Patient, Other (RN/DONNIE Weaver/) MYRIAM GASTON MD Aug 31, 2024 22:48
[2024-09-01] VITALS (16 sets, daily range): BP systolic 107–151; BP diastolic 40–85; PULSE 78–100; RESP 16–20; TEMP 97.5–98.2; O2SAT 18–100
[2024-09-01] MEDS: VANCOMYCIN 1GM/250ML KIT 250 ML IV SCH (05:49)
[2024-09-01 06:15] LABS: Anion Gap 7 (5-15); Carbon Dioxide 28 mmol/L (20-31)
[2024-09-01 06:16] LABS: Calcium 9.1 mg/dL (8.7-10.4); Chloride 98 mmol/L (98-107); Mean Corpuscular Hgb Conc. 33.9 g/dL (32.0-36.0); Sodium 133 mmol/L (136-145)
[2024-09-01 06:21] LABS: BUN/Creatinine Ratio 23.1 (10.0-20.0)
[2024-09-01 06:22] LABS: Hematocrit 33.8 % (41.0-53.0); Hemoglobin 11.4 g/dL (13.5-17.5); Mean Corpuscular Hemoglobin 31.2 pg (28.0-32.0); Platelet Count (auto) 556 10^3/uL (140-450); Red Blood Cells 3.67 10^6/uL (4.5-5.90); Red Cell Distribution Width 13.7 % (11.8-14.3); White Blood Cell 17.6 10^3/uL (4.4-10.8)
[2024-09-01 06:34] LABS: Blood Urea Nitrogen 25 mg/dL (9-23); Glucose 289 mg/dL (74-106)
[2024-09-01 06:35] LABS: Basophils % (manual) 0 (0.0-2.0); Blast Cells 0; Eosinophils % (manual) 0 (0-7); Metamyelocytes % 0; Myelocytes % 0; Promyelocytes % 0; Reactive Lymphocytes 0
[2024-09-01 09:01] LABS: Band Neutrophils % (manual) 5; Lymphocytes % (manual) 7 (10.0-50.0); Monocytes % (manual) 5 (0-12)
[2024-09-01 09:02] LABS: RBC Morphology Normal
[2024-09-01 09:04] LABS: Platelet Estimate Increased
[2024-09-01 09:42] LABS: Amphetamine Screen, Urine Neg (NEGATIVE); Barbiturate Scree,Urine Neg (NEGATIVE); Benzodiazephine Screen, Urine Neg (NEGATIVE); Cannabinoid Screen, Urine Pos (NEGATIVE); Cocaine Screen, Urine Neg (NEGATIVE); Opiate Scree,Urine Neg (NEGATIVE); Phencyclidine Screen, Urine Neg (NEGATIVE)
[2024-09-01 09:47] LABS: Urine Bacteria FEW /hpf (None Seen); Urine Blood Negative /uL (Negative); Urine Clarity Clear (Clear); Urine Color Yellow (Yellow); Urine Protein, UAD 1+ (Negative); Urine Specific Gravity 1.017 (1.001-1.035); Urine Squamous Epithelial Cell FEW /hpf (<5); Urine Urobilinogen 12 mg/dL (Negative); Urine WBC 1 /hpf (0 - 3)
--- NOTE | 2024-09-01 14:20 | DVHSR ---
APPROVED REPORT EXAM: Two-dimensional and M-mode echocardiogram with Doppler and color Doppler. Blood Pressure: 151/85 mmHg INDICATION Heart Failure RISK FACTORS Height: 6'1", Weight: 194 DIMENSIONS LVDd5.1 (3.8-5.7cm)LA (2D)4.1 (1.9-4.0cm)Aortic Root3.5 (2.0-3.7cm) LVDs3.2 (2.5-4.0cm)LA (MM) (1.9-4.0cm)Aortic Cusp Exc2.1 (1.5-2.0cm) EF (%) 66.0 (55-70%)Rt. Atrium4.1 (1.9-4.0cm)Asc. Aorta cm IVSd1.3 (0.7-1.1cm)RV (D)3.1 (1.8-2.4cm) PWd0.9 (0.7-1.1cm) Mitral Valve MitralMitral Stenosis E wave0.79m/sMV Mean GR.mmHg A wave1.07m/sMV Peak GR.mmHg E/A ratio0.72D MVAcm2 DECEL [id number] 1/2 [place] Aortic Valve Aortic ValveAortic Stenosis V11.25m/Malissa Mean GR.6mmHg V21.46m/Malissa Peak GR.9mmHg LVOT Diameter2.3 (1.8-2.4cm)Doppler AVA3.56cm2 Pulmonic Valve V20.88m/s LEFT VENTRICLE Normal left ventricular size. There is borderline left ventricular hypertrophy most prominent in the septum. Ejection fraction is normal and is estimated at 60-65%. No regional wall motion abnormalit ies. Diastolic function appears to be preserved. E to E prime ratio is in the normal range. RIGHT VENTRICLE The right ventricle is of normal size. Right ventricular systolic function is normal. ATRIA Both atria are of normal size. MITRAL VALVE Normal structure and function. No significant mitral regurgitation. PULMONIC VALVE Likely normal. TRICUSPID VALVE Normal structure and function. There is trace tricuspid regurgitation. PA systolic pressure is not adequately estimated. AORTIC VALVE Trileaflet in structure. There is mild calcification of the leaflet. No hemodynamically significant stenosis or regurgitation. GREAT VESSELS The aortic root is of normal size. Proximal ascending aorta is not well visualized. PERICARDIAL EFFUSION No significant pericardial effusion. IVC is of normal size and collapses normally with inspiration. Conclusion Normal left ventricular size and systolic function. Ejection fraction is estimated at 60-65%. Borderline left ventricular hypertrophy. Normal right ventricular size and systolic function. Mildly calcified aortic valve with no significant stenosis. No hemodynamically significant valvular disease. PA systolic pressure is not adequately estimated. No pericardial effusion.
--- NOTE | 2024-09-01 14:23 | DVHPN2 ---
Progress Note - Dictate Date Seen: Sep 01, 2024 Medical Necessity Reason Pt with a Central, PICC or Fol: No Subjective Clinical stable. Shortness of breath is improved. Counseled and educated regarding compliance with his medications and the diabetic management. Blood cultures preliminary Staph aureus organisms. vital signs Vital Sign Date Time Temp Pulse Resp B/P (MAP) Pulse Ox O2 Delivery O2 Flow Rate FiO2 09/01/24 13:00 98.1 90 17 125/83 (97) 94 98.1 09/01/24 08:00 Room Air* 0 21 Total Intake and Output 08/31/24 08/31/24 09/01/24 15:00 23:00 07:00 Intake Total 250 ml 250 ml 1760 ml Balance 250 ml 250 ml 1760 ml medications Current Medications Medications Dose Ordered Sig/Alber Route Start Time Stop Time Status Last Admin Dose Admin Docusate Sodium 100 mg BIDPRN PRN PO 08/30/24 22:45 Acetaminophen 650 mg Q6HP PRN PO 08/30/24 22:45 09/01/24 09:51 650 MG Acetaminophen/ Hydrocodone Bitart 1 tab Q4HP PRN PO 08/30/24 22:45 Ondansetron HCl 4 mg Q4HP PRN IV 08/30/24 22:45 Enoxaparin Sodium 40 mg DAILY SC 08/31/24 10:00 09/01/24 09:52 40 MG Nitroglycerin 0.4 mg Q5MINP PRN SL 08/30/24 22:45 Morphine Sulfate 2 mg Q30M PRN IV 08/30/24 22:45 Diagnostic Test (Pha) 1 strip IQ4HR 08/31/24 00:00 09/01/24 12:42 1 STRIP Insulin Human Regular IQ4HR SC 08/31/24 00:00 09/01/24 12:45 10 UNITS Dextrose 50 ml UD PRN IV 08/30/24 22:45 Azithromycin 250 ml @ 125 mls/hr DAILY IV 08/31/24 10:00 09/01/24 10:16 125 MLS/HR Ceftriaxone Sodium 50 ml @ 100 mls/hr DAILY@2100 IV 08/31/24 21:00 08/31/24 21:19 100 MLS/HR Guaifenesin/ Dextromethorphan 10 ml Q6HPRN PRN PO 08/31/24 07:15 09/01/24 09:52 10 ML Vancomycin HCl 0 ml @ 0 mls/hr UD IV 08/31/24 15:30 Methylprednisolone Sodium Succinate 20 mg BID IV 08/31/24 22:00 09/01/24 09:52 20 MG Vancomycin HCl 250 ml @ 250 mls/hr Q12H IV 09/01/24 05:00 09/01/24 05:49 250 MLS/HR Metformin HCl 500 mg BIDWM PO 09/01/24 18:00 UNV Albuterol 2.5 mg TID NEB 09/01/24 14:30 UNV Ipratropium [place] 0.5 mg Q4HPRN PRN NEB 09/01/24 14:30 UNV objective Alert awake orient times repeated sitting in bed without complaints. HEENT neck supple no JVD. Heart rate rate and rhythm S1-S2. Lungs failure mobile without rales wheezes breathe abdomen soft nontender positive bowel sounds. Extremities no edema positive pulses. laboratory and microbiology Laboratory Tests 09/01/24 04:55 Test 09/01/24 04:55 Range/Units Serum Glucose 289 H 74-106 mg/dL Assessment/Plan Staph aureus bacteremia without signs of sepsis. Probable SIRS syndrome. Continue current vancomycin and antibiotics for his pneumonia. Patient counseled extensively along with nurse at bedside regarding medication compliance at home and outpatient follow up with the primary care physician as well as diabetic medication compliance and diet complaints. We will have dietary consult while in the hospital. We will check A1c levels and lipid panel. Was continue present management. His father gave management for clinical course. Discussed with the patient along with the nurse at bedside regarding his care plan. Problems(with codes): (1) Pneumonia (2) Uncontrolled diabetes mellitus Plan discussed with: Patient, Other PHIL GARCIA MD Sep 01, 2024 14:23
[2024-09-01 14:26] LABS: Triglycerides 60 mg/dL (< 150)
[2024-09-01 14:27] LABS: LDL Cholesterol 53 mg/dL (< 100)
[2024-09-01 14:28] LABS: Cholesterol 82 mg/dL (< 200)
[2024-09-01 14:43] LABS: HDL Cholesterol 22 mg/dL (40-59)
[2024-09-01] MEDS: ALBUTEROL SULF 2.5 MG/0.5ML(0.5%) NEB SOLN NEB SCH (14:47)
[2024-09-01] MEDS: metFORMIN HYDROCHLORIDE 500 MG TAB PO SCH (17:43)
--- NOTE | 2024-09-01 18:07 | DVHPN2 ---
Progress Note - Dictate Date Seen: Sep 01, 2024 Medical Necessity Reason Pt with a Central, PICC or Fol: No Subjective Patient is clinically stable. Shortness of breath is improved. Blood cultures preliminary showed Staphylococcus aureus organisms. vital signs Vital Sign Date Time Temp Pulse Resp B/P (MAP) Pulse Ox O2 Delivery O2 Flow Rate FiO2 09/01/24 16:40 98.1 95 18 111/76 (88) 18 98.1 09/01/24 08:00 Room Air* 0 21 Total Intake and Output 08/31/24 08/31/24 09/01/24 15:00 23:00 07:00 Intake Total 250 ml 250 ml 1760 ml Balance 250 ml 250 ml 1760 ml medications Current Medications Medications Dose Ordered Sig/Alber Route Start Time Stop Time Status Last Admin Dose Admin Docusate Sodium 100 mg BIDPRN PRN PO 08/30/24 22:45 Acetaminophen 650 mg Q6HP PRN PO 08/30/24 22:45 09/01/24 09:51 650 MG Acetaminophen/ Hydrocodone Bitart 1 tab Q4HP PRN PO 08/30/24 22:45 Ondansetron HCl 4 mg Q4HP PRN IV 08/30/24 22:45 Enoxaparin Sodium 40 mg DAILY SC 08/31/24 10:00 09/01/24 09:52 40 MG Nitroglycerin 0.4 mg Q5MINP PRN SL 08/30/24 22:45 Morphine Sulfate 2 mg Q30M PRN IV 08/30/24 22:45 Diagnostic Test (Pha) 1 strip IQ4HR 08/31/24 00:00 09/01/24 16:19 1 STRIP Insulin Human Regular IQ4HR SC 08/31/24 00:00 09/01/24 16:20 10 UNITS Dextrose 50 ml UD PRN IV 08/30/24 22:45 Azithromycin 250 ml @ 125 mls/hr DAILY IV 08/31/24 10:00 09/01/24 10:16 125 MLS/HR Ceftriaxone Sodium 50 ml @ 100 mls/hr DAILY@2100 IV 08/31/24 21:00 08/31/24 21:19 100 MLS/HR Guaifenesin/ Dextromethorphan 10 ml Q6HPRN PRN PO 08/31/24 07:15 09/01/24 17:43 10 ML Vancomycin HCl 0 ml @ 0 mls/hr UD IV 08/31/24 15:30 Vancomycin HCl 250 ml @ 250 mls/hr Q12H IV 09/01/24 05:00 09/01/24 16:41 250 MLS/HR Metformin HCl 500 mg BIDWM PO 09/01/24 18:00 09/01/24 17:43 500 MG Albuterol 2.5 mg TID NEB 09/01/24 14:30 09/01/24 14:47 2.5 MG Ipratropium [place] 0.5 mg Q4HPRN PRN NEB 09/01/24 14:30 Methylprednisolone Sodium Succinate 20 mg DAILY IV 09/02/24 10:00 objective General Appearance: Alert, Oriented X3, Cooperative, mild distress HEENT: Atraumatic, PERRLA, EOMI Respiratory: Clear to auscultation, Normal air movement Cardiovascular: Regular rate, Normal S1, Normal S2 Abdominal: Normal bowel sounds, Soft, No tenderness Extremities: No clubbing, No cyanosis Skin: No rashes, No breakdown Neuro: Normal speech laboratory and microbiology Laboratory Tests 09/01/24 04:55 Test 09/01/24 04:55 Range/Units Serum Glucose 289 H 74-106 mg/dL Assessment/Plan Patient is a 54-year-old male presents to the hospital with: Sepsis Staphylococcus bacteremia Bilateral pneumonia Uncontrolled DM with hyperglycemia Medical noncompliance Hyponatremia Hypokalemia MYA Recommendations: Current broad spectrum Antibiotics: IV Vancomycin; monitor trough IV Ceftriaxone f/u / covid : negative 08/30, Blood culture showed Staphylococcus aureus; follow sensitivity 08/30, Abdomen/Pelvis CT reviewed personally shows Moderate bilateral multilobar pneumonia likely atypical/viral pneumonia. repeat blood cultures [address] chest wo contrast ECHO TTE shows no vegetation, if blood cultures not cleared, recommend ANTONIO prognosis gaurded Thank you for consult. Plan discussed with: JOSEPH Issa MD Sep 01, 2024 18:07
[2024-09-01] MEDS: IPRATROPIUM BROM 0.5 MG/2.5ML INH SOL NEB PRN (19:16)
--- NOTE | 2024-09-01 23:04 | DVHPN2 ---
Progress Note - Dictate Date Seen: Sep 01, 2024 Medical Necessity Reason Pt with a Central, PICC or Fol: No Subjective Patient seen and examined at bedside. Remains on supplemental oxygen Overnight events reviewed. vital signs Vital Sign Date Time Temp Pulse Resp B/P (MAP) Pulse Ox O2 Delivery O2 Flow Rate FiO2 09/01/24 21:00 98.0 100 20 107/73 (84) 90 98.0 09/01/24 20:00 Room Air* 0 21 Total Intake and Output 08/31/24 08/31/24 09/01/24 15:00 23:00 07:00 Intake Total 250 ml 250 ml 1760 ml Balance 250 ml 250 ml 1760 ml medications Current Medications Medications Dose Ordered Sig/Alber Route Start Time Stop Time Status Last Admin Dose Admin Docusate Sodium 100 mg BIDPRN PRN PO 08/30/24 22:45 Acetaminophen 650 mg Q6HP PRN PO 08/30/24 22:45 09/01/24 20:15 650 MG Acetaminophen/ Hydrocodone Bitart 1 tab Q4HP PRN PO 08/30/24 22:45 Ondansetron HCl 4 mg Q4HP PRN IV 08/30/24 22:45 Enoxaparin Sodium 40 mg DAILY SC 08/31/24 10:00 09/01/24 09:52 40 MG Nitroglycerin 0.4 mg Q5MINP PRN SL 08/30/24 22:45 Morphine Sulfate 2 mg Q30M PRN IV 08/30/24 22:45 Diagnostic Test (Pha) 1 strip IQ4HR 08/31/24 00:00 09/01/24 20:19 1 STRIP Insulin Human Regular IQ4HR SC 08/31/24 00:00 09/01/24 20:18 8 UNITS Dextrose 50 ml UD PRN IV 08/30/24 22:45 Azithromycin 250 ml @ 125 mls/hr DAILY IV 08/31/24 10:00 09/01/24 10:16 125 MLS/HR Ceftriaxone Sodium 50 ml @ 100 mls/hr DAILY@2100 IV 08/31/24 21:00 09/01/24 22:03 100 MLS/HR Guaifenesin/ Dextromethorphan 10 ml Q6HPRN PRN PO 08/31/24 07:15 09/01/24 17:43 10 ML Vancomycin HCl 0 ml @ 0 mls/hr UD IV 08/31/24 15:30 Vancomycin HCl 250 ml @ 250 mls/hr Q12H IV 09/01/24 05:00 09/01/24 16:41 250 MLS/HR Metformin HCl 500 mg BIDWM PO 09/01/24 18:00 09/01/24 17:43 500 MG Albuterol 2.5 mg TID NEB 09/01/24 14:30 09/01/24 19:16 2.5 MG Ipratropium [place] 0.5 mg Q4HPRN PRN NEB 09/01/24 14:30 09/01/24 19:16 0.5 MG Methylprednisolone Sodium Succinate 20 mg DAILY IV 09/02/24 10:00 objective Gen.: Patient lying in bed in no apparent distress. On supplemental oxygen. Head: Normocephalic, atraumatic. Eyes: EOMI/PERRLA. Ears: Normal hearing. Normal anatomy. Neck/trachea: Trachea midline, supple. Nose: Normal external anatomy. Mouth: Moist mucous membranes. Chest: Decreased air entry bilaterally. No wheezing or rhonchi. Cardiovascular: Positive S1, positive S2. Regular rate and rhythm. Abdomen: Positive bowel sounds in all 4 quadrants. Soft, non-tender, non- distended. : Deferred. Rectal: Deferred. Skin: Warm, dry. Intact. Extremities: 2+ radial pulses bilaterally. No lower extremity edema. Neuro: Awake, alert, oriented x3. No gross motor or sensory deficits. Cranial nerves II through XII intact. Gait not assessed. laboratory and microbiology Laboratory Tests 09/01/24 04:55 Test 09/01/24 04:55 Range/Units Serum Glucose 289 H 74-106 mg/dL Assessment/Plan Impression: Acute hypoxic respiratory failure Dependence on supplemental oxygen Pneumonia, likely gram negative Methamphetamine use GGO on imaging Nicotine dependence Marijuana, methamphetamine abuse Events: Remains on supplemental oxygen, 2 LPM NC Taper O2 as tolerated Pt desaturates w/ exertion. Follow up Echo results. Continue IV steroids Continue antibiotics Antitussive PRN cough UDS returned positive for cannabinoids Physical therapy. Labs and imaging reviewed. Rest of plan as noted below. Plan: Supplemental oxygen Titrate to keep O2 sats above 92%. CXR notable for Multifocal bilateral airspace opacities. No effusion/pneumothorax. CT chest showed findings c/w multifocal pneumonia Continue bronchodilators. Continue antibiotics IV steroids Antitussive for cough Monitor renal function. Monitor electrolytes. Supplement as necessary. Monitor ins and outs. Smoking cessation discussed for greater than 10 minutes Counseled against marijuana use. DVT prophylaxis. Prognosis: Poor given patient's multiple co-morbidities. Rest of plan per hospitalist and other consultants. Thank you, DONNIE Weaver, for allowing me to participate in this patient's care. Further recommendations will depend on the patient's clinical course. Please do not hesitate to contact me if you have any questions or concerns. This medical document was created using an electronic medical record system with [employer] dictation system. Although these documentations are being carefully reviewed, there may still be some phonetic and typographical changes. The errors are purely typographical, due to imperfection on the software program, and do not reflect any compromise in the patient's medical care. Plan discussed with: Patient, Other (MIKEY Cortez) MYRIAM GASTON MD Sep 01, 2024 23:04
[2024-09-02] VITALS (15 sets, daily range): BP systolic 109–138; BP diastolic 57–92; PULSE 85–98; RESP 16–20; TEMP 97.6–98.3; O2SAT 89–98
[2024-09-02] MEDS: HYDROcodone-ACET 5/325MG TAB PO PRN (04:38)
[2024-09-02 04:43] LABS: Hemoglobin 10.2 g/dL (13.5-17.5)
[2024-09-02 04:47] LABS: Hematocrit 29.8 % (41.0-53.0); Mean Corpuscular Hemoglobin 31.4 pg (28.0-32.0); Mean Corpuscular Hgb Conc. 34.4 g/dL (32.0-36.0); Mean Corpuscular Volume 91.4 fL (80.0-100.0); Platelet Count (auto) 549 10^3/uL (140-450); Red Blood Cells 3.26 10^6/uL (4.5-5.90); Red Cell Distribution Width 13.6 % (11.8-14.3); White Blood Cell 17.7 10^3/uL (4.4-10.8)
[2024-09-02 04:50] LABS: Anion Gap 6 (5-15); Calcium 9.2 mg/dL (8.7-10.4); Carbon Dioxide 28 mmol/L (20-31); Chloride 101 mmol/L (98-107)
[2024-09-02 04:51] LABS: Basophils % (manual) 0 (0.0-2.0); Blast Cells 0; Eosinophils % (manual) 0 (0-7); Metamyelocytes % 0; Myelocytes % 0; Promyelocytes % 0; Reactive Lymphocytes 0
[2024-09-02 04:57] LABS: BUN/Creatinine Ratio 25.3 (10.0-20.0)
[2024-09-02 04:59] LABS: Potassium 3.2 mmol/L (3.5-5.1); Sodium 135 mmol/L (136-145)
[2024-09-02 05:00] LABS: Blood Urea Nitrogen 24 mg/dL (9-23); Glucose 184 mg/dL (74-106)
[2024-09-02 06:39] LABS: Band Neutrophils % (manual) 2; Large Platelets FEW; Lymphocytes % (manual) 14 (10.0-50.0); Monocytes % (manual) 6 (0-12); Platelet Estimate Increa; Smudge Cells 3 /100 WBC
--- NOTE | 2024-09-02 09:01 | DVH ---
Procedure: CT CHEST WITHOUT CONTRAST Reason for study/Clinical History: bacteremia, rule out abscess. Comparison Study: Chest radiograph dated 08/31/2024. Exam Date: 09/02/2024 08:34 AM TECHNIQUE: Multidetector CT of the chest was performed from the lung apices to the upper abdomen with out the use of intravenous contract. Coronal and sagittal multiplanar reformats were performed. Radiation Dose Information: CT Dose: CTDI volume is 14.49 mGy. Dose-length product is 564.39 mGy*cm The dose indicators for CT are the volume Computed Tomography (CT) Dose Index (CTDIvol) and the Dose Length Product (DLP), and are measured in units of mGy and mGy-cm, respectively. These indicators are not patient dose, but values generated from the CT scanner acquisition factors. The report includes radiation exposure data for exposures received during this examination. FINDINGS: Lower neck: Normal thyroid. Lungs: Bilateral ground-glass opacities and confluence consolidation in the left upper and lower lobe s, and the right middle and left lower lobe. This is compatible with multifocal pneumonia. There is a cavitary nodule in the right upper lobe measuring 1.7 x 1.4 x 1.5 cm. There is a nother cavitary no dule in the right upper lobe measuring 9 x 9 mm. Pleura: No pleural effusion or significant pneumothorax. Central airways: Patent. Heart/Vascular Structures: Normal heart size. No pericardial effusion. Lymph Nodes: No adenopathy Musculoskeletal: No acute osseous abnormality. Soft tissues: Normal. Upper abdomen: Limited portions of the upper abdomen are unremarkable. IMPRESSION: 1. Bilateral multifocal pneumonia. Cavitary lesions highly suspicious for septic emboli. Radiation optimization: All CT scans at this facility use at least one of these dose optimization lesly hniques: automated exposure control mA and/or kV adjustment per patient size (includes targeted exam s where dose is matched to clinical indication) or iterative reconstruction.
[2024-09-02] MEDS: methylPREDNISolone SOD SUCC 40 MG/ML VL IV SCH (10:00)
[2024-09-02] MEDS: POTASSIUM CHL 20 Meq TABLET PO ONE (13:56)
--- NOTE | 2024-09-02 16:34 | DVHPN2 ---
Progress Note - Dictate Date Seen: Sep 02, 2024 Medical Necessity Reason Pt with a Central, PICC or Fol: No Subjective Clinical stable. Shortness of breath is improved. Oxygenating normal room air. CT chest shows a pneumonia with a possible cavitary lesion. Repeat blood cultures are pending. vital signs Vital Sign Date Time Temp Pulse Resp B/P (MAP) Pulse Ox O2 Delivery O2 Flow Rate FiO2 09/02/24 15:10 93 18 109/72 95 0.0 09/02/24 13:22 Room Air 09/02/24 13:22 21 09/02/24 12:34 98.0 98.0 Total Intake and Output 09/01/24 09/01/24 09/02/24 15:00 23:00 07:00 Intake Total 800 ml 990 ml 760 ml Balance 800 ml 990 ml 760 ml medications Current Medications Medications Dose Ordered Sig/Alber Route Start Time Stop Time Status Last Admin Dose Admin Docusate Sodium 100 mg BIDPRN PRN PO 08/30/24 22:45 Acetaminophen 650 mg Q6HP PRN PO 08/30/24 22:45 09/01/24 20:15 650 MG Acetaminophen/ Hydrocodone Bitart 1 tab Q4HP PRN PO 08/30/24 22:45 09/02/24 04:38 1 TAB Ondansetron HCl 4 mg Q4HP PRN IV 08/30/24 22:45 Enoxaparin Sodium 40 mg DAILY SC 08/31/24 10:00 09/02/24 13:57 40 MG Nitroglycerin 0.4 mg Q5MINP PRN SL 08/30/24 22:45 Morphine Sulfate 2 mg Q30M PRN IV 08/30/24 22:45 Diagnostic Test (Pha) 1 strip IQ4HR 08/31/24 00:00 09/02/24 12:00 1 STRIP Insulin Human Regular IQ4HR SC 08/31/24 00:00 09/02/24 12:00 4 UNITS Dextrose 50 ml UD PRN IV 08/30/24 22:45 Azithromycin 250 ml @ 125 mls/hr DAILY IV 08/31/24 10:00 09/02/24 13:57 125 MLS/HR Ceftriaxone Sodium 50 ml @ 100 mls/hr DAILY@2100 IV 08/31/24 21:00 09/01/24 22:03 100 MLS/HR Guaifenesin/ Dextromethorphan 10 ml Q6HPRN PRN PO 08/31/24 07:15 09/01/24 17:43 10 ML Vancomycin HCl 0 ml @ 0 mls/hr UD IV 08/31/24 15:30 Metformin HCl 500 mg BIDWM PO 09/01/24 18:00 09/02/24 08:10 500 MG Albuterol 2.5 mg TID NEB 09/01/24 14:30 09/02/24 13:22 2.5 MG Ipratropium [place] 0.5 mg Q4HPRN PRN NEB 09/01/24 14:30 09/01/24 19:16 0.5 MG Vancomycin HCl 250 ml @ 250 mls/hr Q10H IV 09/02/24 15:00 Clindamycin HCl 600 mg Q8HR PO 09/02/24 22:00 Empaglifozin 10 mg DAILY PO 09/03/24 10:00 objective Alert awake orient times repeated sitting in bed without complaints. HEENT neck supple no JVD. Heart rate rate and rhythm S1-S2. Lungs failure mobile without rales wheezes breathe abdomen soft nontender positive bowel sounds. Extremities no edema positive pulses. laboratory and microbiology Laboratory Tests 09/02/24 04:09 Test 09/02/24 04:09 Range/Units Serum Glucose 184 #H 74-106 mg/dL Assessment/Plan Staph aureus bacteremia without signs of sepsis. Probable SIRS syndrome. Bilobar pneumonia with possible cavitary lesion Acute hypoxic respiratory failure oxygenating normally on room air Poorly controlled diabetes mellitus type 2 with A1c around nine Patient was counseled educated regarding his blood sugar control. I will add Jardiance and to continue metformin. Continue current antibiotics. Follow the repeat blood cultures. If they are negative we will transitioned to oral antibiotics and discharged home. Otherwise for looking management for clinical course and recommendations from the consultants. Problems(with codes): (1) Uncontrolled diabetes mellitus (2) Pneumonia Dietary Evaluation Review Comments: follow the CCHO-60 diet, aovid drug and nicotine. Monitor PO intake to meet 75% of his needs Expected Outcomes/Goals: controlled DM, gradual weight loss, improved nutrition related lab values Plan discussed with: Other PHIL GARCIA MD Sep 02, 2024 16:33
--- NOTE | 2024-09-02 18:11 | DVHPN2 ---
Progress Note - Dictate Date Seen: Sep 02, 2024 Medical Necessity Reason Pt with a Central, PICC or Fol: No Subjective Patient is clinically stable. Shortness of breath is improved. CT chest shows a pneumonia with a possible cavitary lesion. Repeat blood cultures are pending. vital signs Vital Sign Date Time Temp Pulse Resp B/P (MAP) Pulse Ox O2 Delivery O2 Flow Rate FiO2 09/02/24 16:47 98.3 88 17 110/57 (74) 92 98.3 09/02/24 15:10 0.0 09/02/24 13:22 Room Air 09/02/24 13:22 21 Total Intake and Output 09/01/24 09/01/24 09/02/24 15:00 23:00 07:00 Intake Total 800 ml 990 ml 760 ml Balance 800 ml 990 ml 760 ml medications Current Medications Medications Dose Ordered Sig/Alber Route Start Time Stop Time Status Last Admin Dose Admin Docusate Sodium 100 mg BIDPRN PRN PO 08/30/24 22:45 Acetaminophen 650 mg Q6HP PRN PO 08/30/24 22:45 09/01/24 20:15 650 MG Acetaminophen/ Hydrocodone Bitart 1 tab Q4HP PRN PO 08/30/24 22:45 09/02/24 04:38 1 TAB Ondansetron HCl 4 mg Q4HP PRN IV 08/30/24 22:45 Enoxaparin Sodium 40 mg DAILY SC 08/31/24 10:00 09/02/24 13:57 40 MG Nitroglycerin 0.4 mg Q5MINP PRN SL 08/30/24 22:45 Morphine Sulfate 2 mg Q30M PRN IV 08/30/24 22:45 Diagnostic Test (Pha) 1 strip IQ4HR 08/31/24 00:00 09/02/24 12:00 1 STRIP Insulin Human Regular IQ4HR SC 08/31/24 00:00 09/02/24 12:00 4 UNITS Dextrose 50 ml UD PRN IV 08/30/24 22:45 Azithromycin 250 ml @ 125 mls/hr DAILY IV 08/31/24 10:00 09/02/24 13:57 125 MLS/HR Ceftriaxone Sodium 50 ml @ 100 mls/hr DAILY@2100 IV 08/31/24 21:00 09/01/24 22:03 100 MLS/HR Guaifenesin/ Dextromethorphan 10 ml Q6HPRN PRN PO 08/31/24 07:15 09/01/24 17:43 10 ML Vancomycin HCl 0 ml @ 0 mls/hr UD IV 08/31/24 15:30 Metformin HCl 500 mg BIDWM PO 09/01/24 18:00 09/02/24 08:10 500 MG Albuterol 2.5 mg TID NEB 09/01/24 14:30 09/02/24 13:22 2.5 MG Ipratropium [place] 0.5 mg Q4HPRN PRN NEB 09/01/24 14:30 09/01/24 19:16 0.5 MG Vancomycin HCl 250 ml @ 250 mls/hr Q10H IV 09/02/24 15:00 Clindamycin HCl 600 mg Q8HR PO 09/02/24 22:00 Empaglifozin 10 mg DAILY PO 09/03/24 10:00 objective General Appearance: Alert, Oriented X3, Cooperative, mild distress HEENT: Atraumatic, PERRLA, EOMI Respiratory: Clear to auscultation, Normal air movement Cardiovascular: Regular rate, Normal S1, Normal S2 Abdominal: Normal bowel sounds, Soft, No tenderness Extremities: No clubbing, No cyanosis Skin: No rashes, No breakdown Neuro: Normal speech laboratory and microbiology Laboratory Tests 09/02/24 04:09 Test 09/02/24 04:09 Range/Units Serum Glucose 184 #H 74-106 mg/dL Assessment/Plan Patient is a 54-year-old male presents to the hospital with: Sepsis Staphylococcus aureus bacteremia (MSSA) Septic Embolic Bilateral mulitfocal cavitary pneumonia Uncontrolled DM with hyperglycemia Medical noncompliance Hyponatremia Hypokalemia MYA Recommendations: Current broad spectrum Antibiotics: Discontinue IV Vancomycin;, Ceftriaxone, Azithromycin and Clindamycin, start IV cefazolin 2g q 8 hours. 09/02, Vancomycin trough: 13.8 CT chest reviewed independently by me, has multifocal penumonia with concern for septic emboli combined with high grade bacteremia 11/25 bottles, recommend ANTONIO ECHO TTE shows no vegetation f/u / covid : negative 08/30, Blood culture showed Staphylococcus aureus. MSSA 08/30, Abdomen/Pelvis CT reviewed personally shows Moderate bilateral multilobar pneumonia likely atypical/viral pneumonia. 01/09, CT chest showed Bilateral multifocal pneumonia. Cavitary lesions highly suspicious for septic emboli. prognosis guarded Thank you for consult. Dietary Evaluation Review Comments: follow the CCHO-60 diet, aovid drug and nicotine. Monitor PO intake to meet 75% of his needs Expected Outcomes/Goals: controlled DM, gradual weight loss, improved nutrition related lab values Plan discussed with: JOSEPH Issa MD Sep 02, 2024 18:11
[2024-09-02] MEDS: VANCOMYCIN 1GM/250ML KIT 250 ML IV SCH (18:31)
[2024-09-02] MEDS ORDERED: CLINDAMYCIN HCL 150 MG CAP PO SCH (22:00)
[2024-09-02] MEDS: ceFAZolin 2 GM/D5W50ml 50 ML IV SCH (22:07)
--- NOTE | 2024-09-02 23:12 | DVHPN2 ---
Progress Note - Dictate Date Seen: Sep 02, 2024 Medical Necessity Reason Pt with a Central, PICC or Fol: No Subjective Patient seen and examined at bedside. Breathing on room air Overnight events reviewed. vital signs Vital Sign Date Time Temp Pulse Resp B/P (MAP) Pulse Ox O2 Delivery O2 Flow Rate FiO2 09/02/24 16:47 98.3 88 17 110/57 (74) 92 98.3 09/02/24 15:10 0.0 09/02/24 13:22 Room Air 09/02/24 13:22 21 Total Intake and Output 09/01/24 09/01/24 09/02/24 15:00 23:00 07:00 Intake Total 800 ml 990 ml 760 ml Balance 800 ml 990 ml 760 ml medications Current Medications Medications Dose Ordered Sig/Alber Route Start Time Stop Time Status Last Admin Dose Admin Docusate Sodium 100 mg BIDPRN PRN PO 08/30/24 22:45 Acetaminophen 650 mg Q6HP PRN PO 08/30/24 22:45 09/01/24 20:15 650 MG Acetaminophen/ Hydrocodone Bitart 1 tab Q4HP PRN PO 08/30/24 22:45 09/02/24 04:38 1 TAB Ondansetron HCl 4 mg Q4HP PRN IV 08/30/24 22:45 Enoxaparin Sodium 40 mg DAILY SC 08/31/24 10:00 09/02/24 13:57 40 MG Nitroglycerin 0.4 mg Q5MINP PRN SL 08/30/24 22:45 Morphine Sulfate 2 mg Q30M PRN IV 08/30/24 22:45 Diagnostic Test (Pha) 1 strip IQ4HR 08/31/24 00:00 09/02/24 20:00 1 STRIP Insulin Human Regular IQ4HR SC 08/31/24 00:00 09/02/24 20:31 4 UNITS Dextrose 50 ml UD PRN IV 08/30/24 22:45 Guaifenesin/ Dextromethorphan 10 ml Q6HPRN PRN PO 08/31/24 07:15 09/01/24 17:43 10 ML Metformin HCl 500 mg BIDWM PO 09/01/24 18:00 09/02/24 18:32 500 MG Albuterol 2.5 mg TID NEB 09/01/24 14:30 09/02/24 13:22 2.5 MG Ipratropium [place] 0.5 mg Q4HPRN PRN NEB 09/01/24 14:30 09/01/24 19:16 0.5 MG Empaglifozin 10 mg DAILY PO 09/03/24 10:00 Cefazolin Sodium/ Dextrose 50 ml @ 50 mls/hr Q8HR IV 09/02/24 22:00 09/02/24 22:07 50 MLS/HR objective Gen.: Patient lying in bed in no apparent distress. On room air. Head: Normocephalic, atraumatic. Eyes: EOMI/PERRLA. Ears: Normal hearing. Normal anatomy. Neck/trachea: Trachea midline, supple. Nose: Normal external anatomy. Mouth: Moist mucous membranes. Chest: Decreased air entry bilaterally. No wheezing or rhonchi. Cardiovascular: Positive S1, positive S2. Regular rate and rhythm. Abdomen: Positive bowel sounds in all 4 quadrants. Soft, non-tender, non- distended. : Deferred. Rectal: Deferred. Skin: Warm, dry. Intact. Extremities: 2+ radial pulses bilaterally. No lower extremity edema. Neuro: Awake, alert, oriented x3. No gross motor or sensory deficits. Cranial nerves II through XII intact. Gait not assessed. laboratory and microbiology Laboratory Tests 09/02/24 04:09 Test 09/02/24 04:09 Range/Units Serum Glucose 184 #H 74-106 mg/dL Assessment/Plan Impression: Acute hypoxic respiratory failure Dependence on supplemental oxygen Pneumonia, likely gram negative Methamphetamine use GGO on imaging Nicotine dependence Marijuana, methamphetamine abuse Events: On room air Supplemental oxygen PRN Follow up Echo results. Continue bronchodilators Stop steroids Continue antibiotics Antitussive PRN cough ID recs appreciated. Physical therapy. Disposition per hospitalist Labs and imaging reviewed. Rest of plan as noted below. Plan: Supplemental oxygen PRN Titrate to keep O2 sats above 92%. CXR notable for Multifocal bilateral airspace opacities. No effusion/pneumothorax. CT chest showed findings c/w multifocal pneumonia Continue bronchodilators. Continue antibiotics IV steroids Antitussive for cough Monitor renal function. Monitor electrolytes. Supplement as necessary. Monitor ins and outs. Smoking cessation discussed for greater than 10 minutes Counseled against marijuana use. DVT prophylaxis. Prognosis: Guarded given patient's multiple co-morbidities. Rest of plan per hospitalist and other consultants. Thank you, DONNIE Weaver, for allowing me to participate in this patient's care. Further recommendations will depend on the patient's clinical course. Please do not hesitate to contact me if you have any questions or concerns. This medical document was created using an electronic medical record system with [employer] dictation system. Although these documentations are being carefully reviewed, there may still be some phonetic and typographical changes. The errors are purely typographical, due to imperfection on the software program, and do not reflect any compromise in the patient's medical care. Dietary Evaluation Review Comments: follow the CCHO-60 diet, aovid drug and nicotine. Monitor PO intake to meet 75% of his needs Expected Outcomes/Goals: controlled DM, gradual weight loss, improved nutrition related lab values Plan discussed with: Patient, Other (MIKEY Iverson) MYRIAM GASTON MD Sep 02, 2024 23:12
[2024-09-03] VITALS (14 sets, daily range): BP systolic 99–139; BP diastolic 60–84; PULSE 80–101; RESP 16–20; TEMP 97.5–98.1; O2SAT 89–96
[2024-09-03 07:29] LABS: Anion Gap 7 (5-15); Carbon Dioxide 30 mmol/L (20-31); Chloride 101 mmol/L (98-107); Potassium 3.7 mmol/L (3.5-5.1); Sodium 138 mmol/L (136-145)
[2024-09-03 07:30] LABS: Calcium 8.8 mg/dL (8.7-10.4)
[2024-09-03 07:35] LABS: BUN/Creatinine Ratio 15.3 (10.0-20.0); Blood Urea Nitrogen 13 mg/dL (9-23); Eosinophils # (auto) 0.1 10 ^3/uL (0-0.8); Hemoglobin 10.4 g/dL (13.5-17.5)
[2024-09-03 07:37] LABS: Basophils # (auto) 0.1 10 ^3/uL (0-0.2); Basophils % (auto) 0.4 % (0.0-2.0); Eosinophils % (auto) 0.6 % (0.0-7.0); Hematocrit 30.4 % (41.0-53.0); Lymphocytes # (auto) 2.8 10 ^3/uL (0.4-5.4); Lymphocytes % (auto) 20.1 % (10.0-50.0); Mean Corpuscular Hemoglobin 31.3 pg (28.0-32.0); Mean Corpuscular Hgb Conc. 34.2 g/dL (32.0-36.0); Mean Corpuscular Volume 91.5 fL (80.0-100.0); Monocytes # (auto) 1.1 10 ^3/uL (0-1.3); Monocytes % (auto) 8.2 % (0.0-12.0); Neutrophils # (auto) 9.8 10 ^3/uL (1.6-8.6); Neutrophils % (auto) 70.7 % (37.0-80.0); Platelet Count (auto) 572 10^3/uL (140-450); Red Blood Cells 3.32 10^6/uL (4.5-5.90); Red Cell Distribution Width 13.8 % (11.8-14.3); White Blood Cell 13.9 10^3/uL (4.4-10.8)
[2024-09-03 07:40] LABS: Glucose 153 mg/dL (74-106)
[2024-09-03] MEDS: EMPAGLIFLOZIN 10 MG TAB PO SCH (09:50)
--- NOTE | 2024-09-03 16:24 | DVHPN2 ---
Progress Note - Dictate Date Seen: Sep 03, 2024 Medical Necessity Reason Pt with a Central, PICC or Fol: No Subjective Clinical stable. Appears to be back to normal baseline status. No shortness a breath. Oxygenating normal remained. He has repeat blood cultures negative for any growth. Anxious to go home. vital signs Vital Sign Date Time Temp Pulse Resp B/P (MAP) Pulse Ox O2 Delivery O2 Flow Rate FiO2 09/03/24 14:36 93 18 95 09/03/24 14:30 Room Air* 0 21 09/03/24 13:00 97.5 99/68 (78) 97.5 Total Intake and Output 09/02/24 09/02/24 09/03/24 15:00 23:00 07:00 Intake Total 1000 ml Output Total 1800 ml Balance -1800 ml 1000 ml medications Current Medications Medications Dose Ordered Sig/Alber Route Start Time Stop Time Status Last Admin Dose Admin Docusate Sodium 100 mg BIDPRN PRN PO 08/30/24 22:45 Acetaminophen 650 mg Q6HP PRN PO 08/30/24 22:45 09/03/24 04:39 650 MG Acetaminophen/ Hydrocodone Bitart 1 tab Q4HP PRN PO 08/30/24 22:45 09/02/24 04:38 1 TAB Ondansetron HCl 4 mg Q4HP PRN IV 08/30/24 22:45 Enoxaparin Sodium 40 mg DAILY SC 08/31/24 10:00 09/02/24 13:57 40 MG Nitroglycerin 0.4 mg Q5MINP PRN SL 08/30/24 22:45 Morphine Sulfate 2 mg Q30M PRN IV 08/30/24 22:45 Diagnostic Test (Pha) 1 strip IQ4HR 08/31/24 00:00 09/03/24 11:49 1 STRIP Insulin Human Regular IQ4HR SC 08/31/24 00:00 09/03/24 11:48 4 UNITS Dextrose 50 ml UD PRN IV 08/30/24 22:45 Guaifenesin/ Dextromethorphan 10 ml Q6HPRN PRN PO 08/31/24 07:15 09/01/24 17:43 10 ML Metformin HCl 500 mg BIDWM PO 09/01/24 18:00 09/03/24 07:58 500 MG Albuterol 2.5 mg TID NEB 09/01/24 14:30 09/03/24 14:30 2.5 MG Ipratropium [place] 0.5 mg Q4HPRN PRN NEB 09/01/24 14:30 09/01/24 19:16 0.5 MG Empaglifozin 10 mg DAILY PO 09/03/24 10:00 09/03/24 09:50 10 MG Cefazolin Sodium/ Dextrose 50 ml @ 50 mls/hr Q8HR IV 09/02/24 22:00 09/03/24 14:00 50 MLS/HR objective Alert awake orient times repeated sitting in bed without complaints. HEENT neck supple no JVD. Heart rate rate and rhythm S1-S2. Lungs failure mobile without rales wheezes breathe abdomen soft nontender positive bowel sounds. Extremities no edema positive pulses. laboratory and microbiology Laboratory Tests 09/03/24 06:10 Test 09/03/24 06:10 Range/Units Serum Glucose 153 H 74-106 mg/dL Assessment/Plan Staph aureus bacteremia without signs of sepsis. Probable SIRS syndrome. Bilobar pneumonia with possible cavitary lesion Acute hypoxic respiratory failure oxygenating normally on room air Poorly controlled diabetes mellitus type 2 with A1c around nine Continue current medical treatment. Given his repeat blood cultures negative likely would not benefit from transesophageal echo. Continue to treat IV antibiotics overnight and if he remains stable discharge home tomorrow with oral antibiotics. Discussed with the patient regarding care plan. Dietary Evaluation Review Comments: follow the CCHO-60 diet, aovid drug and nicotine. Monitor PO intake to meet 75% of his needs Expected Outcomes/Goals: controlled DM, gradual weight loss, improved nutrition related lab values Plan discussed with: Patient, Other PHIL GARCIA MD Sep 03, 2024 16:24
--- NOTE | 2024-09-03 17:53 | DVHPN2 ---
Progress Note - Dictate Date Seen: Sep 03, 2024 Medical Necessity Reason Pt with a Central, PICC or Fol: No Subjective Patient seen and examined at bedside. Breathing on room air Overnight events reviewed. vital signs Vital Sign Date Time Temp Pulse Resp B/P (MAP) Pulse Ox O2 Delivery O2 Flow Rate FiO2 09/03/24 17:19 97.8 100 17 116/75 (89) 89 97.8 09/03/24 14:30 Room Air* 0 21 Total Intake and Output 09/02/24 09/02/24 09/03/24 15:00 23:00 07:00 Intake Total 1000 ml Output Total 1800 ml Balance -1800 ml 1000 ml medications Current Medications Medications Dose Ordered Sig/Alber Route Start Time Stop Time Status Last Admin Dose Admin Docusate Sodium 100 mg BIDPRN PRN PO 08/30/24 22:45 Acetaminophen 650 mg Q6HP PRN PO 08/30/24 22:45 09/03/24 04:39 650 MG Acetaminophen/ Hydrocodone Bitart 1 tab Q4HP PRN PO 08/30/24 22:45 09/02/24 04:38 1 TAB Ondansetron HCl 4 mg Q4HP PRN IV 08/30/24 22:45 Enoxaparin Sodium 40 mg DAILY SC 08/31/24 10:00 09/02/24 13:57 40 MG Nitroglycerin 0.4 mg Q5MINP PRN SL 08/30/24 22:45 Morphine Sulfate 2 mg Q30M PRN IV 08/30/24 22:45 Diagnostic Test (Pha) 1 strip IQ4HR 08/31/24 00:00 09/03/24 16:00 1 STRIP Insulin Human Regular IQ4HR SC 08/31/24 00:00 09/03/24 16:46 3 UNITS Dextrose 50 ml UD PRN IV 08/30/24 22:45 Guaifenesin/ Dextromethorphan 10 ml Q6HPRN PRN PO 08/31/24 07:15 09/01/24 17:43 10 ML Metformin HCl 500 mg BIDWM PO 09/01/24 18:00 09/03/24 16:45 500 MG Albuterol 2.5 mg TID NEB 09/01/24 14:30 09/03/24 14:30 2.5 MG Ipratropium [place] 0.5 mg Q4HPRN PRN NEB 09/01/24 14:30 09/01/24 19:16 0.5 MG Empaglifozin 10 mg DAILY PO 09/03/24 10:00 09/03/24 09:50 10 MG Cefazolin Sodium/ Dextrose 50 ml @ 50 mls/hr Q8HR IV 09/02/24 22:00 09/03/24 14:00 50 MLS/HR objective Gen.: Patient lying in bed in no apparent distress. On room air. Head: Normocephalic, atraumatic. Eyes: EOMI/PERRLA. Ears: Normal hearing. Normal anatomy. Neck/trachea: Trachea midline, supple. Nose: Normal external anatomy. Mouth: Moist mucous membranes. Chest: Decreased air entry bilaterally. No wheezing or rhonchi. Cardiovascular: Positive S1, positive S2. Regular rate and rhythm. Abdomen: Positive bowel sounds in all 4 quadrants. Soft, non-tender, non- distended. : Deferred. Rectal: Deferred. Skin: Warm, dry. Intact. Extremities: 2+ radial pulses bilaterally. No lower extremity edema. Neuro: Awake, alert, oriented x3. No gross motor or sensory deficits. Cranial nerves II through XII intact. Gait not assessed. laboratory and microbiology Laboratory Tests 09/03/24 06:10 Test 09/03/24 06:10 Range/Units Serum Glucose 153 H 74-106 mg/dL Assessment/Plan Impression: Acute hypoxic respiratory failure Dependence on supplemental oxygen Pneumonia, likely gram negative Methamphetamine use GGO on imaging Nicotine dependence Marijuana, methamphetamine abuse Events: On room air Supplemental oxygen PRN Continue bronchodilators Continue antibiotics Antitussive PRN cough ID recs appreciated. Accu-Cheks, ISS Physical therapy. Patient is stable for discharge from the pulmonary standpoint. Disposition per hospitalist Labs and imaging reviewed. Rest of plan as noted below. Plan: Supplemental oxygen PRN Titrate to keep O2 sats above 92%. CXR notable for Multifocal bilateral airspace opacities. No effusion/pneumothorax. CT chest showed findings c/w multifocal pneumonia Continue bronchodilators. Continue antibiotics IV steroids - discontinued Antitussive for cough Monitor renal function. Monitor electrolytes. Supplement as necessary. Monitor ins and outs. Smoking cessation discussed for greater than 10 minutes Counseled against marijuana use. DVT prophylaxis. Prognosis: Guarded given patient's multiple co-morbidities. Rest of plan per hospitalist and other consultants. Thank you, [employer]AND [employer] A[employer]LYST Owen, for allowing me to participate in this patient's care. Further recommendations will depend on the patient's clinical course. Please do not hesitate to contact me if you have any questions or concerns. This medical document was created using an electronic medical record system with [employer] dictation system. Although these documentations are being carefully reviewed, there may still be some phonetic and typographical changes. The errors are purely typographical, due to imperfection on the software program, and do not reflect any compromise in the patient's medical care. Dietary Evaluation Review Comments: follow the CCHO-60 diet, aovid drug and nicotine. Monitor PO intake to meet 75% of his needs Expected Outcomes/Goals: controlled DM, gradual weight loss, improved nutrition related lab values Plan discussed with: Patient, Other (MIKEY Toledo) MYRIAM GASTON MD Sep 03, 2024 17:53
--- NOTE | 2024-09-03 21:28 | DVHPN2 ---
Progress Note - Dictate Date Seen: Sep 03, 2024 Medical Necessity Reason Pt with a Central, PICC or Fol: No Subjective Patient is clinically stable. No shortness a breath. CT chest shows a pneumonia with a possible cavitary lesion. Oxygenating normal remained. He has repeat blood cultures negative for any growth. Anxious to go home. vital signs Vital Sign Date Time Temp Pulse Resp B/P (MAP) Pulse Ox O2 Delivery O2 Flow Rate FiO2 09/03/24 17:19 97.8 100 17 116/75 (89) 89 97.8 09/03/24 14:30 Room Air* 0 21 Total Intake and Output 09/02/24 09/02/24 09/03/24 15:00 23:00 07:00 Intake Total 1000 ml Output Total 1800 ml Balance -1800 ml 1000 ml medications Current Medications Medications Dose Ordered Sig/Alber Route Start Time Stop Time Status Last Admin Dose Admin Docusate Sodium 100 mg BIDPRN PRN PO 08/30/24 22:45 Acetaminophen 650 mg Q6HP PRN PO 08/30/24 22:45 09/03/24 04:39 650 MG Acetaminophen/ Hydrocodone Bitart 1 tab Q4HP PRN PO 08/30/24 22:45 09/02/24 04:38 1 TAB Ondansetron HCl 4 mg Q4HP PRN IV 08/30/24 22:45 Enoxaparin Sodium 40 mg DAILY SC 08/31/24 10:00 09/02/24 13:57 40 MG Nitroglycerin 0.4 mg Q5MINP PRN SL 08/30/24 22:45 Morphine Sulfate 2 mg Q30M PRN IV 08/30/24 22:45 Diagnostic Test (Pha) 1 strip IQ4HR 08/31/24 00:00 09/03/24 16:00 1 STRIP Insulin Human Regular IQ4HR SC 08/31/24 00:00 09/03/24 16:46 3 UNITS Dextrose 50 ml UD PRN IV 08/30/24 22:45 Guaifenesin/ Dextromethorphan 10 ml Q6HPRN PRN PO 08/31/24 07:15 09/01/24 17:43 10 ML Metformin HCl 500 mg BIDWM PO 09/01/24 18:00 09/03/24 16:45 500 MG Albuterol 2.5 mg TID NEB 09/01/24 14:30 09/03/24 14:30 2.5 MG Ipratropium Dorena 0.5 mg Q4HPRN PRN NEB 09/01/24 14:30 09/01/24 19:16 0.5 MG Empaglifozin 10 mg DAILY PO 09/03/24 10:00 09/03/24 09:50 10 MG Cefazolin Sodium/ Dextrose 50 ml @ 50 mls/hr Q8HR IV 09/02/24 22:00 09/03/24 14:00 50 MLS/HR objective General Appearance: Alert, Oriented X3, Cooperative, mild distress HEENT: Atraumatic, PERRLA, EOMI Respiratory: Clear to auscultation, Normal air movement Cardiovascular: Regular rate, Normal S1, Normal S2 Abdominal: Normal bowel sounds, Soft, No tenderness Extremities: No clubbing, No cyanosis Skin: No rashes, No breakdown Neuro: Normal speech laboratory and microbiology Laboratory Tests 09/03/24 06:10 Test 09/03/24 06:10 Range/Units Serum Glucose 153 H 74-106 mg/dL Assessment/Plan Patient is a 54-year-old male presents to the hospital with: Sepsis Staphylococcus aureus bacteremia (MSSA) Septic Embolic Bilateral mulitfocal cavitary pneumonia Uncontrolled DM with hyperglycemia Medical noncompliance Hyponatremia Hypokalemia MYA Recommendations: Current broad spectrum Antibiotics: Discontinue IV Vancomycin;, Ceftriaxone, Azithromycin and Clindamycin, start IV cefazolin 2g q 8 hours. 09/02, Vancomycin trough: 13.8 CT chest reviewed independently by me, has multifocal penumonia with concern for septic emboli combined with high grade bacteremia / bottles, recommend ANTONIO ECHO TTE shows no vegetation f/u / covid : negative 08/30, Blood culture showed Staphylococcus aureus. MSSA 08/30, Abdomen/Pelvis CT reviewed personally shows Moderate bilateral multilobar pneumonia likely atypical/viral pneumonia. 09/01, CT chest showed Bilateral multifocal pneumonia. Cavitary lesions highly suspicious for septic emboli. prognosis guarded Thank you for consult. Dietary Evaluation Review Comments: follow the CCHO-60 diet, aovid drug and nicotine. Monitor PO intake to meet 75% of his needs Expected Outcomes/Goals: controlled DM, gradual weight loss, improved nutrition related lab values JOSEPH CASTRO MD Sep 03, 2024 21:28
[2024-09-04] VITALS (10 sets, daily range): BP systolic 103–123; BP diastolic 69–78; PULSE 76–98; RESP 16–20; TEMP 36.9; O2SAT 91–95
[2024-09-04] MEDS ORDERED: METF-371 PO (11:37)
[2024-09-04] MEDS ORDERED: METR-344 PO (11:37)
[2024-09-04] MEDS ORDERED: BLOO1KIT60 XX (11:37)
[2024-09-04] MEDS ORDERED: CEFD300C2 PO (11:37)
[2024-09-04] MEDS ORDERED: EMPA1TAB PO (11:37)
[2024-09-04] MEDS ORDERED: LANC-347 XX (11:37)
--- NOTE | 2024-09-04 11:42 | DVHDS2 ---
Discharge Summary Date of Admission Aug 30, 2024 at 22:38 Date of Discharge: Sep 04, 2024 Admitting Diagnosis Shortness of breath Labs/Diagnostic Data: Laboratory Results Test 09/04/24 07:49 09/03/24 06:10 09/02/24 04:09 09/01/24 08:40 POC Glucose 140 mg/dl (70-106) White Blood Count 13.9 10^3/uL (4.4-10.8) Red Blood Count 3.32 10^6/uL (4.5-5.90) Hemoglobin 10.4 g/dL (13.5-17.5) Hematocrit 30.4 % (41.0-53.0) Mean Corpuscular Volume 91.5 fL (80.0-100.0) Mean Corpuscular Hemoglobin 31.3 pg (28.0-32.0) Mean Corpuscular Hemoglobin Concent 34.2 g/dL (32.0-36.0) Red Cell Distribution Width 13.8 % (11.8-14.3) Platelet Count 572 10^3/uL (140-450) Mean Platelet Volume 7.5 fL (6.9-10.8) Neutrophils (%) (Auto) 70.7 % (37.0-80.0) Lymphocytes (%) (Auto) 20.1 % (10.0-50.0) Monocytes (%) (Auto) 8.2 % (0.0-12.0) Eosinophils (%) (Auto) 0.6 % (0.0-7.0) Basophils (%) (Auto) 0.4 % (0.0-2.0) Neutrophils # (Auto) 9.8 10 ^3/uL (1.6-8.6) Lymphocytes # (Auto) 2.8 10 ^3/uL (0.4-5.4) Monocytes # (Auto) 1.1 10 ^3/uL (0-1.3) Eosinophils # (Auto) 0.1 10 ^3/uL (0-0.8) Basophils # (Auto) 0.1 10 ^3/uL (0-0.2) Nucleated Red Blood Cells 0.0 % Sodium Level 138 mmol/L (136-145) Potassium Level 3.7 mmol/L (3.5-5.1) Chloride Level 101 mmol/L (98-107) Carbon Dioxide Level 30 mmol/L (20-31) Anion Gap 7 (5-15) Blood Urea Nitrogen 13 mg/dL (9-23) Creatinine 0.85 mg/dL (0.700-1.30) Glomerular Filtration Rate Calc 102 mL/min (>90) BUN/Creatinine Ratio 15.3 (10.0-20.0) Serum Glucose 153 mg/dL (74-106) Calcium Level 8.8 mg/dL (8.7-10.4) Differential Total Cells Counted 100.0 (100) Neutrophils % (Manual) 78 (37.0-80.0) Band Neutrophils % (Manual) 2 Lymphocytes % (Manual) 14 (10.0-50.0) Monocytes % (Manual) 6 (0-12) Eosinophils % (Manual) 0 (0-7) Basophils % (Manual) 0 (0.0-2.0) Metamyelocytes % (manual) 0 Myelocytes % (Manual) 0 Promyelocytes % (Manual) 0 Blast Cells % (Manual) 0 Reactive Lymphocytes 0 Smudge Cells 3 /100 WBC Platelet Estimate Increa Clumped Platelets Few Large Platelets Few Vancomycin Level Trough 13.8 ug/mL (5-10) Urine Color Yellow (Yellow) Urine Clarity Clear (Clear) Urine pH 6.0 (5.0-9.0) Urine Specific [place] 1.017 (1.001-1.035) Urine Protein 1+ (Negative) Urine Ketones Negative (Negative) Urine Blood Negative /uL (Negative) Urine Nitrite Negative (Negative) Urine Bilirubin Negative (Negative) Urine Urobilinogen 12 mg/dL (Negative) Urine Leukocyte Esterase Negative /uL (Negative) Urine RBC None seen /hpf (0 - 3) Urine WBC 1 /hpf (0 - 3) Urine Squamous Epithelial Cells Few /hpf (<5) Urine Bacteria Few /hpf (None Seen) Urine Glucose 4+ mg/dL (Normal) Urine Opiates Screen Neg (NEGATIVE) Urine Fentanyl Screen Neg (NEGATIVE) Urine Barbiturates Screen Neg (NEGATIVE) Urine Phencyclidine Screen Neg (NEGATIVE) Urine Amphetamines Screen Neg (NEGATIVE) Urine Benzodiazepines Screen Neg (NEGATIVE) Urine Cocaine Screen Neg (NEGATIVE) Urine Cannabinoids Screen Pos (NEGATIVE) Test 09/01/24 04:55 08/30/24 17:57 08/30/24 16:30 08/30/24 14:25 Red Blood Cell Morphology Normal Hemoglobin A1c 9.2 % A1C (<5.7) Triglycerides Level 60 mg/dL (< 150) Cholesterol Level 82 mg/dL (< 200) LDL Cholesterol 53 mg/dL (< 100) HDL Cholesterol 22 mg/dL (40-59) Lactic Acid Level 1.5 mmol/L (0.4-2.0) Troponin I High Sensitivity 12 ng/L (</=54) Influenza Type A Antigen Negative (Negative) Influenza Type B Antigen Negative (Negative) SARS-CoV-2 Antigen (Rapid) Negative (NEGATIVE) Total Bilirubin 1.5 mg/dL (0.2-1.0) Aspartate Amino Transferase (AST) 29 U/L (13-40) Alanine Aminotransferase (ALT) 24 U/L (7-40) Alkaline Phosphatase 269 U/L (46-116) B-Type Natriuretic Peptide 45.57 pg/mL (0-100) Total Protein 7.2 g/dL (5.7-8.2) Albumin 3.6 g/dL (3.2-4.8) Lipase 26 U/L (12-53) Other Laboratory Tests 09/03/24 06:10 Brief Hx & Hospital Course: 54 year-old male with medical history of uncontrolled DM presents with complaints Of generalized bodyaches, nausea, vomiting, Cough, congestion Over the previous three weeks. Patient state symptoms have worsened on the day of arrival. At this time patient endorses he does not follow up with PCP. The emergency department of evaluation BG 485 without Metabolic acidosis. Patient also found to be mildly hypoxic requires supplemental oxygen at 2 L nasal cannula To maintain oxygen saturation 94%. Patient Denies Dizziness, syncope, Chest pain, Palpitations, leg swelling, He is admitted and evaluated by manager clinical informatics and Infectious Disease. Patient has some noted to have a pneumonia cavitating. Patient blood sugars were poorly controlled. Patient educated and counseled regarding the importance of compliance with the his diabetic medications and close outpatient follow up. Patient resumed on oral diabetic medications and blood sugars have improved. Patient received empiric IV antibiotics. Initial blood cultures were positive however repeat blood cultures were negative. His transthoracic echocardiogram did not show any vegetations. Patient remained afebrile. His labs have improved. He is oxygenating normally on room air. He is getting out of bed ambulating. He is feeling better. Having had necessary workup and evaluations and feeling better it is felt he could be safely discharged home with close outpatient follow up with PCP and manager clinical informatics. I have talked with the patient on multiple occasions regarding his hospital diagnosis, treatment she received, discharge medications, discharge instructions and follow-up plan of care. He has verbalized understanding of these and agree with the discharge care plan. Consults/Reason for consult Procedure: CT CHEST WITHOUT CONTRAST Reason for study/Clinical History: bacteremia, rule out abscess. Comparison Study: Chest radiograph dated 08/31/2024. Exam Date: 09/02/2024 08:34 AM TECHNIQUE: Multidetector CT of the chest was performed from the lung apices to the upper abdomen without the use of intravenous contract. Coronal and sagittal multiplanar reformats were performed. Radiation Dose Information: CT Dose: CTDI volume is 14.49 mGy. Dose-length product is 564.39 mGy*cm The dose indicators for CT are the volume Computed Tomography (CT) Dose Index (CTDIvol) and the Dose Length Product (DLP), and are measured in units of mGy and mGy-cm, respectively. These indicators are not patient dose, but values generated from the CT scanner acquisition factors. The report includes radiation exposure data for exposures received during this examination. FINDINGS: Lower neck: Normal thyroid. Lungs: Bilateral ground-glass opacities and confluence consolidation in the left upper and lower lobes, and the right middle and left lower lobe. This is compatible with multifocal pneumonia. There is a cavitary nodule in the right upper lobe measuring 1.7 x 1.4 x 1.5 cm. There is a nother cavitary nodule in the right upper lobe measuring 9 x 9 mm. Pleura: No pleural effusion or significant pneumothorax. Central airways: Patent. Heart/Vascular Structures: Normal heart size. No pericardial effusion. Lymph Nodes: No adenopathy Musculoskeletal: No acute osseous abnormality. Soft tissues: Normal. Upper abdomen: Limited portions of the upper abdomen are unremarkable. IMPRESSION: 1. Bilateral multifocal pneumonia. Cavitary lesions highly suspicious for septic emboli. Radiation optimization: All CT scans at this facility use at least one of these dose optimization techniques: automated exposure control mA and/or kV adjustment per patient size (includes targeted exams where dose is matched to clinical indication) or iterative reconstruction. Operations or Procedures EXAM: Two-dimensional and M-mode echocardiogram with Doppler and color Doppler. Blood Pressure: 151/85 mmHg INDICATION Heart Failure RISK FACTORS Height: 6'1", Weight: 194 DIMENSIONS LVDd 5.1 (3.8-5.7cm) LA (2D) 4.1 (1.9-4.0cm) Aortic Root 3.5 (2.0- 3.7cm) LVDs 3.2 (2.5-4.0cm) LA (MM) (1.9-4.0cm) Aortic Cusp Exc 2.1 (1.5- 2.0cm) EF (%) 66.0 (55-70%) Rt. Atrium 4.1 (1.9-4.0cm) Asc. Aorta cm IVSd 1.3 (0.7-1.1cm) RV (D) 3.1 (1.8-2.4cm) PWd 0.9 (0.7-1.1cm) Mitral Valve Mitral Mitral Stenosis E wave 0.79m/s MV Mean GR. mmHg A wave 1.07m/s MV Peak GR. mmHg E/A ratio 0.7 2D MVA cm2 DECEL Time 157ms PRESS 1/2 Time ms Aortic Valve Aortic Valve Aortic Stenosis V1 1.25m/s AO Mean GR. 6mmHg V2 1.46m/s AO Peak GR. 9mmHg LVOT Diameter 2.3 (1.8-2.4cm) Doppler BRITTANY 3.56cm2 Pulmonic Valve V2 0.88m/s LEFT VENTRICLE Normal left ventricular size. There is borderline left ventricular hypertrophy most prominent in the septum. Ejection fraction is normal and is estimated at 60-65%. No regional wall motion abnormalities. Diastolic function appears to be preserved. E to E prime ratio is in the normal range. RIGHT VENTRICLE The right ventricle is of normal size. Right ventricular systolic function is normal. ATRIA Both atria are of normal size. MITRAL VALVE Normal structure and function. No significant mitral regurgitation. PULMONIC VALVE Likely normal. TRICUSPID VALVE Normal structure and function. There is trace tricuspid regurgitation. PA systolic pressure is not adequately estimated. AORTIC VALVE Trileaflet in structure. There is mild calcification of the leaflet. No hemodynamically significant stenosis or regurgitation. GREAT VESSELS The aortic root is of normal size. Proximal ascending aorta is not well visualized. PERICARDIAL EFFUSION No significant pericardial effusion. IVC is of normal size and collapses normally with inspiration. Conclusion Normal left ventricular size and systolic function. Ejection fraction is estimated at 60-65%. Borderline left ventricular hypertrophy. Normal right ventricular size and systolic function. Mildly calcified aortic valve with no significant stenosis. No hemodynamically significant valvular disease. PA systolic pressure is not adequately estimated. No pericardial effusion. Condition at Discharge: Stable Final Diagnosis/Problems List dm 2, pneumonia Problems List: (1) Uncontrolled diabetes mellitus Status: Acute (2) Pneumonia Status: Acute (3) Hyperglycemia Status: Acute (4) Constipation Status: Acute Discharge Disposition: Home Discharge Instruct/Medications Diet: Consistent carbohydrate, Cardiac 2g Na,low cholest Activity: No Restrictions, As Tolerated Follow Up/Referral: PCP next week for diabetes and pneumonia management. DR.Gomez Allan haro 2 weeks for pneumonia Medications: as prescribed New Medications: Blood Glucose Monitoring Suppl (D-Care Glucometer Kit/Glu W/Device) 1 Kit Kit KIT XX TIDWMEALS, #1 Cefdinir (Cefdinir) 300 Mg Cap 1 CAP PO BID, #14 CAP Empagliflozin (Jardiance) 10 Mg Tab 10 MG PO DAILY@BREAKFAST, #60 TAB Lancets (Freestyle Lancets) Lancets Mis EA XX TIDWMEALS, #120 Metformin Hydrochloride (Metformin Hcl) 850 Mg Tab 1 TAB PO BID, #60 TAB 1 Refill Metronidazole (Flagyl) 500 Mg Tab 1 TAB PO BID, #14 TAB Discharge Statement: "Patient was advised to return to the ER or call 911 if any headaches, dizziness, shortness of breath, chest pain, abdominal pain, bleeding, fevers, or worsening of medical condition. Patient was counseled about treatment plan, medications, possible side effects, patientverbalized understanding. All questions were answered to the best of my ability. This discharge took greater then 30 minutes in planning, reviewing documentation, counseling the patient, and discussing with other team members." ASSESSMENT ASSESSMENT Assessment dm 2, pneumonia PHIL AGRCIA MD Sep 04, 2024 11:42
--- NOTE | 2024-09-04 20:36 | DVHPN2 ---
Progress Note - Dictate Date Seen: Sep 04, 2024 Medical Necessity Reason Pt with a Central, PICC or Fol: No Subjective Patient seen and examined at bedside. Breathing on room air Overnight events reviewed. vital signs Vital Sign Date Time Temp Pulse Resp B/P (MAP) Pulse Ox O2 Delivery O2 Flow Rate FiO2 09/04/24 14:44 95 16 95 09/04/24 14:37 Room Air 0.0 09/04/24 14:37 21 09/04/24 13:39 36.9 09/04/24 13:00 123/72 (89) Total Intake and Output 09/03/24 09/03/24 09/04/24 15:00 23:00 07:00 Intake Total 50 ml 200 ml 800 ml Output Total 500 ml 900 ml Balance 50 ml -300 ml -100 ml objective Gen.: Patient lying in bed in no apparent distress. On room air. Head: Normocephalic, atraumatic. Eyes: EOMI/PERRLA. Ears: Normal hearing. Normal anatomy. Neck/trachea: Trachea midline, supple. Nose: Normal external anatomy. Mouth: Moist mucous membranes. Chest: Decreased air entry bilaterally. No wheezing or rhonchi. Cardiovascular: Positive S1, positive S2. Regular rate and rhythm. Abdomen: Positive bowel sounds in all 4 quadrants. Soft, non-tender, non- distended. : Deferred. Rectal: Deferred. Skin: Warm, dry. Intact. Extremities: 2+ radial pulses bilaterally. No lower extremity edema. Neuro: Awake, alert, oriented x3. No gross motor or sensory deficits. Cranial nerves II through XII intact. Gait not assessed. laboratory and microbiology Laboratory Tests 09/03/24 06:10 Test 09/03/24 06:10 Range/Units Serum Glucose 153 H 74-106 mg/dL Assessment/Plan Impression: Acute hypoxic respiratory failure Dependence on supplemental oxygen Pneumonia, likely gram negative Methamphetamine use GGO on imaging Nicotine dependence Marijuana, methamphetamine abuse Events: On room air Supplemental oxygen PRN Continue bronchodilators Completed antibiotics Antitussive PRN cough ID recs appreciated. Incentive spirometry Accu-Cheks, ISS Physical therapy. Patient is stable for discharge from the pulmonary standpoint. Disposition per hospitalist Labs and imaging reviewed. Rest of plan as noted below. Plan: Supplemental oxygen PRN Titrate to keep O2 sats above 92%. CXR notable for Multifocal bilateral airspace opacities. No effusion/pneumothorax. CT chest showed findings c/w multifocal pneumonia Continue bronchodilators. Completed antibiotics IV steroids - discontinued Antitussive for cough Monitor renal function. Monitor electrolytes. Supplement as necessary. Monitor ins and outs. Smoking cessation discussed for greater than 10 minutes Counseled against marijuana use. DVT prophylaxis. Prognosis: Guarded given patient's multiple co-morbidities. Rest of plan per hospitalist and other consultants. Thank you, DONNIE Weaver, for allowing me to participate in this patient's care. Further recommendations will depend on the patient's clinical course. Please do not hesitate to contact me if you have any questions or concerns. This medical document was created using an electronic medical record system with [employer] dictation system. Although these documentations are being carefully reviewed, there may still be some phonetic and typographical changes. The errors are purely typographical, due to imperfection on the software program, and do not reflect any compromise in the patient's medical care. Dietary Evaluation Review Comments: follow the CCHO-60 diet, aovid drug and nicotine. Monitor PO intake to meet 75% of his needs Expected Outcomes/Goals: controlled DM, gradual weight loss, improved nutrition related lab values Plan discussed with: Patient, Other (MIKEY Toledo) MYRIAM GASTON MD Sep 04, 2024 20:36
== END 2024-09-04 15:47 | disposition home or self-care (01) | DRG 720 ==
LOC: EDSEX 12:30 → EDBD 12:30 → ER 12:30 → TELE 22:38 → TELE-CENTR 08-31 17:30
PROVIDERS: ADMIT Hospitalist; ATTEND Hospitalist
DX: A41.9 Sepsis, unspecified organism (principal); J96.01 Acute respiratory failure with hypoxia; J15.69 Pneumonia due to other Gram-negative bacteria; N17.9 Acute kidney failure, unspecified; E87.1 Hypo-osmolality and hyponatremia; J15.9 Unspecified bacterial pneumonia; E11.65 Type 2 diabetes mellitus with hyperglycemia; E87.6 Hypokalemia; F17.210 Nicotine dependence, cigarettes, uncomplicated; I10 Essential (primary) hypertension; F15.10 Other stimulant abuse, uncomplicated; Z91.199 Patient's noncompliance with other medical treatment and regimen due to unspecified reason; Z99.81 Dependence on supplemental oxygen; Z83.3 Family history of diabetes mellitus; Z82.49 Family history of ischemic heart disease and other diseases of the circulatory system; Z79.899 Other long term (current) drug therapy; Z79.4 Long term (current) use of insulin
CPT/HCPCS: 36415; 71045; 71250; 74176; 80048; 80053; 80061; 80202; 80307; 81001; 82962; 83036; 83605; 83690; 83880; 84484; 85007; 85025; 85027; 87040; 87077; 87081; 87186; 87426; 87804; 93306; 94640; 96361; 96365; 96368; 96375; 97163; G0378; J1815; J2405; J3490

== ENCOUNTER 2025-03-11 22:36 | Inpatient (IN) | payer MEDICAID ==
[~2025-03-11] VITALS: Ht 172.7 cm; Wt 96.1 kg
[~2025-03-11 22:36] MED LIST changes: +BLOO1KIT60 XX; +CEFD300C2 PO; +EMPA1TAB PO; -IOHEXOL 300 MG/ML 100ML BOTTLE IJ ONE; +LANC-347 XX; -MAGNESIUM CITRATE SOLUTION 300 ML BTL PO ONE; +METF-371 PO; +METR-344 PO; -MORPHINE SULFATE 4 MG/ML SYR/VIAL IV ONE; -ONDANSETRON HCL 4 MG/2 ML VIAL IV ONE; -SODIUM CHLORIDE 0.9% 1,000 ML IVB ONE
[2025-03-11 23:16] LABS: Hematocrit 41.8 % (41.0-53.0); Hemoglobin 14.5 g/dL (13.5-17.5); Mean Corpuscular Hemoglobin 30.8 pg (28.0-32.0); Mean Corpuscular Volume 88.9 fL (80.0-100.0); Nucleated Red Blood Cells % 0.0 %
[2025-03-11 23:39] LABS: Alanine Aminotransferase 20 U/L (7-40); Albumin 5.3 g/dL (3.2-4.8); Alkaline Phosphatase 73 U/L (46-116); Anion Gap 17 (5-15); BUN/Creatinine Ratio 11.7 (10.0-20.0); Bilirubin, Total 1.1 mg/dL (0.2-1.0); Blood Urea Nitrogen 19 mg/dL (9-23); Calcium 10.4 mg/dL (8.7-10.4); Carbon Dioxide 21 mmol/L (20-31); Chloride 101 mmol/L (98-107); Glucose 245 mg/dL (74-106); Lipase 41 U/L (12-53); Potassium 3.5 mmol/L (3.5-5.1); Sodium 139 mmol/L (136-145); Total Protein 8.3 g/dL (5.7-8.2)
[2025-03-11 23:45] LABS: Base Excess 2.7 mmol/L (-2.0-3.0)
--- NOTE | 2025-03-11 23:55 | ED.PDOC ---
History of Present Illness HPI Comments 54 y/o M is BIBA for c/c abdominal pain, nausea, vomiting, and dizziness. Per EMS report, patient endorses on having symptoms following unprovoked and gradual onset at around 1400, this afternoon. Pain is localized to his lower abdomen and is a 10/10 in severity, nonradiating, and burning in quality. LBM was reported to no have prior to EMS arrival on scene, which was commented to have been normal in appearance. Patient reports on eating nothing but energy drinks, coffee, coke soda, and water all day, today. Vitals stable and within normal limits, with exception on being tachycardic and having a blood glucose of 205. History of DM and noncompliance. Patient was given Zofran en route. Denies any bloody or bilious vomitus, constipation, diarrhea, urinary symptoms, fever, chills, or further associated symptoms. Chief Complaint: Abdominal Pain Time Seen by MD: 22:50 Primary Care Provider: NONE Reviewed Notes: Nurses Notes, Medications, Allergies Allergies: Coded Allergies: NO KNOWN ALLERGIES (Unverified , 01/31/20) Home Meds Active Scripts Lancets (Freestyle Lancets) Lancets Mis, EA XX TIDWMEALS, #120 Prov:PHIL GARCIA MD 09/04/24 Blood Glucose Monitoring Suppl (D-Care Glucometer Kit/Glu W/Device) 1 Kit Kit, KIT XX TIDWMEALS, #1 Prov:PHIL GARCIA MD 09/04/24 Metformin Hydrochloride (Metformin Hcl) 850 Mg Tab, 1 TAB PO BID, #60 TAB 1 Refill Prov:PHIL GARCIA MD 09/04/24 Empagliflozin (Jardiance) 10 Mg Tab, 10 MG PO DAILY@BREAKFAST, #60 TAB Prov:PHIL GARCIA MD 09/04/24 Metronidazole (Flagyl) 500 Mg Tab, 1 TAB PO BID, #14 TAB Prov:PHIL GARCIA MD 09/04/24 Cefdinir (Cefdinir) 300 Mg Cap, 1 CAP PO BID, #14 CAP Prov:PHIL GARCIA MD 09/04/24 Information Source: Patient Mode of Arrival: EMS Severity: Moderate Timing: Hours Duration: Since onset Prehospital treatment: Treatment Past Medical History PAST MEDICAL HISTORY: DM, HTN, Denies Family History Family History: Unknown Social History Smoker: Cigarettes Alcohol: Occasionally Drugs: Marijuana, Methamphetamine Lives In: Home All Other Systems: Reviewed and Negative (Comprehensive systems review obtained and negative except for what is stated in the HPI.) Physical Exam General Appearance: Moderate Distress, Normal HEENT: Normal ENT Inspection, Pharynx Normal, TMs Normal Neck: Full Range of Motion, Non-Tender, Normal, Normal Inspection Respiratory: Chest Non-Tender, Lungs Clear, No Accessory Muscle Use, No R espiratory Distress, Normal Breath Sounds, Other (tachpneic ) Cardiovascular: No Edema, No JVD, No Murmur, No Gallop, Normal Peripheral Pulses, Systolic Murmur, Tachycardia, Other (regular rhythm) Breast Exam: Deferred Gastrointestinal: No Organomegaly, Non Tender, No Pulsatile Mass, Normal Bowel Sounds, Soft Genitalia: Deferred Pelvic: Deferred Rectal: Deferred Extremities: No calf tenderness, Normal capillary refill, Normal inspection, Normal range of motion, Non-tender, No pedal edema Musculoskeletal : Apperance: Normal Neurologic: Alert, 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 Was a procedure done?: No Differential Dx Considerations may include: DKA, hyperglycemia, dehydration, electrolyte imbalance, noncompliance, dehydration, among others. X-Ray, Labs, Meds, VS Vital Signs Date Time Temp Pulse Resp B/P (MAP) Pulse Ox O2 Delivery O2 Flow Rate FiO2 03/11/25 22:50 110 22 152/92 (112) 100 03/11/25 22:43 114 Lab Test 03/12/25 01:42 03/12/25 00:06 03/11/25 23:39 03/11/25 23:05 Range/Units Lactic Acid Level 3.7 *H 3.7 *H 0.4-2.0 mmol/L Blood Gas Specimen Type Arterial Blood Gas Sample Site Right brachial Blood Gas Patient Temperature 37.0 Arterial Blood Date Drawn [id number] Arterial Blood pH 7.721 *H 7.350-7.450 Arterial Blood Partial Pressure CO2 15.0 *L 35.0-48.0 mmHg Arterial Blood Partial Pressure O2 113.6 H 83.0-108.0 mmHg Arterial Blood HCO3 19.0 L 21.0-28.0 mmol/L Arterial Blood Oxygen Saturation 98.8 H 94.0-98.0 % Arterial Blood Base Excess 2.7 -2.0-3.0 mmol/L Arterial Blood Oxyhemoglobin 97.4 94.0-98.0 % Arterial Blood Carboxyhemoglobin 1.1 0.5-1.5 % Arterial Blood Methemoglobin 0.3 0.0-1.5 % Nnamdi Test N/a Blood Gas Total Hemoglobin 14.70 13.5-17.5 g/dL Blood Gas Modality Room air FiO2 % 21.0 Blood Gas Critical Value Read Back yes Blood Gas Notified Whom Blood Gas Notified Time [id number] Blood Gas Notified By beatriz najera, rt White Blood Count 11.6 H 4.4-10.8 10^3/uL Red Blood Count 4.71 4.5-5.90 10^6/uL Hemoglobin 14.5 13.5-17.5 g/dL Hematocrit 41.8 41.0-53.0 % Mean Corpuscular Volume 88.9 80.0-100.0 fL Mean Corpuscular Hemoglobin 30.8 28.0-32.0 pg Mean Corpuscular Hemoglobin Concent 34.6 32.0-36.0 g/dL Red Cell Distribution Width 14.6 H 11.8-14.3 % Platelet Count 249 140-450 10^3/uL Mean Platelet Volume 8.3 6.9-10.8 fL Neutrophils (%) (Auto) 62.3 37.0-80.0 % Lymphocytes (%) (Auto) 29.0 10.0-50.0 % Monocytes (%) (Auto) 7.7 0.0-12.0 % Eosinophils (%) (Auto) 0.3 0.0-7.0 % Basophils (%) (Auto) 0.7 0.0-2.0 % Neutrophils # (Auto) 7.2 1.6-8.6 10 ^3/uL Lymphocytes # (Auto) 3.4 0.4-5.4 10 ^3/uL Monocytes # (Auto) 0.9 0-1.3 10 ^3/uL Eosinophils # (Auto) 0 0-0.8 10 ^3/uL Basophils # (Auto) 0.1 0-0.2 10 ^3/uL Nucleated Red Blood Cells 0.0 % D-Dimer, Quantitative 0.46 0.0-0.49 mg/L FEU Sodium Level 139 136-145 mmol/L Potassium Level 3.5 3.5-5.1 mmol/L Chloride Level 101 98-107 mmol/L Carbon Dioxide Level 21 20-31 mmol/L Anion Gap 17 H 5-15 Blood Urea Nitrogen 19 9-23 mg/dL Creatinine 1.62 H 0.700-1.30 mg/dL Glomerular Filtration Rate Calc 50 >90 mL/min BUN/Creatinine Ratio 11.7 10.0-20.0 Serum Glucose 245 H 74-106 mg/dL Calcium Level 10.4 8.7-10.4 mg/dL Total Bilirubin 1.1 H 0.2-1.0 mg/dL Aspartate Amino Transferase (AST) 25 13-40 U/L Alanine Aminotransferase (ALT) 20 7-40 U/L Alkaline Phosphatase 73 46-116 U/L Total Protein 8.3 H 5.7-8.2 g/dL Albumin 5.3 H 3.2-4.8 g/dL Lipase 41 12-53 U/L Beta-Hydroxybutyric Acid 0.728 H < 0.4 mmol/L Current Medications Medications (Trade) Dose Ordered Sig/Alber Route Start Time Stop Time Status Last Admin Ondansetron HCl (Zofran) 4 mg ONCE ONCE IV 03/11/25 23:00 03/11/25 23:01 DC 03/12/25 01:26 Sodium Chloride 1,000 ml @ 1,000 mls/hr Q1H ONCE IVB 03/11/25 23:00 03/11/25 23:59 DC 03/12/25 01:28 Insulin Human Regular (InsuLIN R) 6 units ONCE ONCE SC 03/11/25 23:00 03/11/25 23:01 DC 03/12/25 01:31 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 No pneumothorax. Cardiomediastinal contours: Unremarkable Bones: Unremarkable IMPRESSION: 1. No acute disease. Time of 1ST Reevaluation: 23:20 Reevaluation 1ST: Unchanged Patient Education/Counseling: Treatment Family Education/Counseling: No Family Present Sepsis focused exam: focus exam completed (In the initial resuscitation at least 30 mL/kg of IV crystalloid fluid was NOT given within the first 3 hr due to concerns of fluid overload), time: (0200) SEPSIS Sepsis Screen Date sepsis recognized/suspect: Mar 11, 2025 Time Sepsis recognized/suspect: 2244 Recent Procedure: No On Antibiotic Therapy: No Respiratory Rate >20: No Heart Rate >90: No Temp<36 C (96.8 F) or >38.3 C: No SBP <90 or MAP <65 mmHG: No New Acute Mental Status Change: No Is the patient on CPAP, BIPAP,: No Physician Orders Urinalysis (03/11/25 22:56) Check Blood Glucose (03/11/25 22:56) Electrocardigram (03/11/25 23:01) Abg W/ Co-Ox (03/11/25 23:36) Blood Culture (03/11/25 23:56) Chest Xray 1 View (03/11/25 23:57) Vital Signs Date Time Temp Pulse Resp B/P (MAP) Pulse Ox O2 Delivery O2 Flow Rate FiO2 03/11/25 22:50 110 22 152/92 (112) 100 03/11/25 22:43 114 Laboratory Tests Test 03/11/25 23:05 03/12/25 00:06 03/12/25 01:42 White Blood Count 11.6 10^3/uL (4.4-10.8) H Lactic Acid Level 3.7 mmol/L (0.4-2.0) *H 3.7 mmol/L (0.4-2.0) *H Medications Medications Dose Ordered Sig/Alber Route Start Time Stop Time Status Last Admin Dose Admin Insulin Human Regular 6 units ONCE ONCE SC 03/11/25 23:00 03/11/25 23:01 DC 03/12/25 01:31 Ondansetron HCl 4 mg ONCE ONCE IV 03/11/25 23:00 03/11/25 23:01 DC 03/12/25 01:26 Sodium Chloride 1,000 ml @ 1,000 mls/hr Q1H ONCE IVB 03/11/25 23:00 03/11/25 23:59 DC 03/12/25 01:28 Departure 1 Departure Time of Disposition: 03:11 Impression: Primary Impression: Acute renal injury Additional Impressions: Dehydration Uncontrolled diabetes mellitus Disposition: ADMITTED INPATIENT Condition: Guarded Discharged With: Self Comments Nausea, Vomiting, and Hyperglycemia in Diabetic Patient Chief Complaint: Nausea, vomiting, dizziness, and malaise for 1 day History of Present Illness: Patient is a 54-year-old male with a history of type 2 diabetes who presents to the ED with complaints of nausea, vomiting, dizziness, and malaise for the past day. The patient admits to being noncompliant with his prescribed insulin regimen. His symptoms developed acutely and have progressively worsened, prompting today's visit. Initial laboratory studies reveal hyperglycemia, elevated lactic acid, and acute kidney injury, consistent with dehydration and poor glycemic control. Review of Systems: Constitutional: Positive for malaise. Gastrointestinal: Positive for nausea and vomiting. Neurological: Positive for dizziness. All other systems: Deferred or negative. 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 Past Medical History: Type 2 Diabetes Mellitus Lab Results: CBC: - WBC: 11.6 K/uL (Elevated) Chemistry Panel: - Creatinine: 1.62 mg/dL (Elevated, indicating acute kidney injury) - Glucose: 245 mg/dL (Elevated) - Lactic acid: 3.7 mmol/L (Elevated) - Total bilirubin: 1.1 mg/dL (Elevated) - Beta-hydroxybutyric acid: 0.728 mmol/L (Elevated) Coagulation: - D-dimer: 0.46 ng/mL (Normal) Imaging and Other Relevant Results: Chest X-ray: No acute pathology Medical Decision Making: Summary Statement: 54-year-old male with poorly controlled type 2 diabetes presenting with nausea, vomiting, dizziness, and malaise for 1 day. Labs show hyperglycemia, acute kidney injury, elevated lactic acid, and mild ketosis, consistent with dehydration and diabetic decompensation. Problem List: 1. Uncontrolled type 2 diabetes with hyperglycemia 2. Acute kidney injury 3. Dehydration 4. Nausea and vomiting 5. Leukocytosis Differential Diagnosis: 1. Diabetic ketoacidosis (DKA) 2. Hyperglycemic hyperosmolar state (HHS) 3. Acute gastroenteritis 4. Sepsis 5. Medication effect 6. Acute pancreatitis 7. Urinary tract infection ED Course: Patient received IV fluid resuscitation and insulin therapy. Laboratory studies revealed hyperglycemia, acute kidney injury, elevated lactic acid, and mild ketosis. Chest X-ray showed no acute pathology. Given the patient's clinical presentation and laboratory findings, the decision was made to admit for further management of uncontrolled diabetes, acute kidney injury, and dehydration. Assessment and Plan: 1. Uncontrolled Type 2 Diabetes Mellitus with Hyperglycemia: - Restart insulin therapy with appropriate dosing - Monitor blood glucose levels every 4 hours - Endocrinology consultation for diabetes management - Diabetes education prior to discharge 2. Acute Kidney Injury secondary to Dehydration: - Continue IV fluid resuscitation with normal saline - Monitor urine output - Serial creatinine measurements - Avoid nephrotoxic medications 3. Nausea and Vomiting: - Antiemetic therapy as needed - Advance diet as tolerated once nausea improves 4. Leukocytosis: - Monitor for signs of infection - Consider additional infectious workup if clinically indicated 5. Disposition: Admit to medical floor for management of above conditions Additional Notes: Patient admitted for acute renal injury with dehydration and uncontrolled type 2 diabetes Billing Information: ICD-10: E11.65 - Type 2 diabetes mellitus with hyperglycemia ICD-10: N17.9 - Acute kidney failure, unspecified ICD-10: E86.0 - Dehydration ICD-10: R11.2 - Nausea with vomiting, unspecified ICD-10: R42 - Dizziness and giddiness Critical Care Note Critical Care Time?: No Stability Stability form required: No Heart Score Heart Score: Heart Score Response (Comments) Value History N/A 0 EKG N/A 0 Age N/A 0 Risk Factors N/A 0 Troponin N/A 0 Total 0 I personally scribed for MAGDALENE WILSON MD ([email or web address]) on 03/11/25 at 23:55. Electronically submitted by Yoseph Urena ([email or web address]). I personally scribed for MAGDALENE WILSON MD ([email or web address]) on 03/12/25 at 01:52. Electronically submitted by Mello Johnson ([email or web address]). MAGDALENE WILSON MD Mar 11, 2025 23:55
[2025-03-12 00:51] LABS: Lactic Acid w/Reflex 3.7 mmol/L (0.4-2.0)
--- NOTE | 2025-03-12 01:08 | DVH ---
CHEST RADIOGRAPH Indication: SOB Technique: Single frontal view of the chest was obtained COMPARISON: XY CHEST XRAY 1 VIEW on DOS: 08/31/24 FINDINGS: Lines and Tubes: None Lungs: Clear Pleura: No effusion. No pneumothorax. Cardiomediastinal contours: Unremarkable Bones: Unremarkable IMPRESSION: 1. No acute disease.
[2025-03-12] MEDS: ONDANSETRON HCL 4 MG/2 ML VIAL IV ONE ×2 (01:26→09:35)
[2025-03-12] MEDS: SODIUM CHLORIDE 0.9% 1,000 ML IVB ONE (01:28)
[2025-03-12] MEDS: InsuLIN REG 1unit/0.01ml Soln (100units/ml) SC ONE (01:31)
[2025-03-12] MEDS: IOHEXOL 300 MG/ML 100ML BOTTLE IJ ONE (03:45)
[2025-03-12] MEDS: SODIUM CHLORIDE 0.9% 1,000 ML IV ONE (04:03)
[2025-03-12] MEDS: PIPERACILLIN-TAZOB 3.375GM 100 ML IV ONE (04:04)
--- NOTE | 2025-03-12 04:09 | DVH ---
EXAM: CT CT AB PEL WITH IV CON ONLY HISTORY: abd pain , vomiting COMPARISON: CT scan dated 05/28/2021 TECHNIQUE: Helical CT images of the abdomen and pelvis were performed with IV contrast. Sagittal and coronal reformatted images were obtained. This CT exam was performed using 1 or more of the following dose reduction techniques: Automated exposure control, adjustment of the mA and/or kv according to p atient size, or the use of iterative reconstruction techniques. Radiation Dose Information: CT Dose: CTDI volume is 14.68 mGy. Dose-length product is 876.49 mGy*cm FINDINGS: CT abdomen: There is bilateral gynecomastia. There are mild ground-glass opacities in the lung bases. There are 4 mm and 4.5 mm noncalcified pulmonary nodules in the right middle lobe (images 11 and 17 , series 3). The heart is not enlarged. There are coronary artery calcifications. There is wall thick ening of the distal esophagus. The left kidney is malrotated. The liver, spleen, gallbladder, pancrea s, right kidney, and bilateral adrenal glands are unremarkable. No abdominal aortic aneurysm or disse ction. CT pelvis: No abnormal bowel dilatation, free air, or free fluid. The appendix and urinary bladder ar e unremarkable. The prostate is moderately enlarged. There is moderate lumbar degenerative disc disea se and facet arthropathy. There is [id number] osteoarthritis of the hips. IMPRESSION: 1. 4 mm and 4.5 mm right lower lobe noncalcified pulmonary nodules. Recommend follow-up according to Fleischner society guidelines. 2. Coronary artery disease. 3. Mild distal esophageal wall thickening. Correlate for signs and symptoms of esophagitis. 4. Moderate prostatic enlargement. Recommend outpatient urology consultation if not already obtained . 5. No evidence of bowel obstruction, acute appendicitis, or other acute process in the abdomen or pel vis.
[2025-03-12 06:36] VITALS: PULSE 111; RESP 20; O2SAT 96
--- NOTE | 2025-03-12 07:16 | ECG ---
[facility] Test Date: 2025-03-11 Test Time: 22:43:22 Pat Name: CRISTIAN PORTER Department: ED Room: [facility] Gender: M Lead Maintenance Technician: harley : 1970 Requested By: MAGDALENE WILSON Order Number: [id number] Reading MD: Ender Barriga Measurements Intervals [place] Rate: 114 P: 69 WV: 146 QRS: 57 QRSD: 82 T: -12 QT: 310 QTc: 427 Interpretive Statements Sinus tachycardia Nonspecific repol abnormality, diffuse leads Electronically Signed On 03-15-2025 15:52:35 PDT by Ender Barriga Please click the below link to view image of tracing.
[2025-03-12 07:32] VITALS: PULSE 96; RESP 18; O2SAT 97
[2025-03-12] MEDS ORDERED: DEXTROSE (50%) 50ML SYRG IV PRN (08:45)
[2025-03-12 09:11] LABS: Hematocrit 39.1 % (41.0-53.0); Hemoglobin 13.3 g/dL (13.5-17.5); Mean Corpuscular Hemoglobin 30.3 pg (28.0-32.0); Mean Corpuscular Volume 89.1 fL (80.0-100.0); Nucleated Red Blood Cells % 0.1 %
[2025-03-12] MEDS: SODIUM CHLORIDE 0.9% 1,000 ML IV SCH (09:15)
[2025-03-12] MEDS: ONDANSETRON HCL 4 MG/2 ML VIAL ONE (09:17)
[2025-03-12 09:20] LABS: Chloride 103 mmol/L (98-107); Potassium 3.5 mmol/L (3.5-5.1); Sodium 142 mmol/L (136-145)
[2025-03-12 09:21] LABS: Anion Gap 10 (5-15); Carbon Dioxide 29 mmol/L (20-31)
[2025-03-12 09:22] LABS: Calcium 10.3 mg/dL (8.7-10.4)
[2025-03-12 09:27] LABS: BUN/Creatinine Ratio 16.7 (10.0-20.0); Blood Urea Nitrogen 23 mg/dL (9-23); Glucose 210 mg/dL (74-106); Triglycerides 68 mg/dL (< 150)
[2025-03-12 09:29] LABS: Cholesterol 168 mg/dL (< 200); HDL Cholesterol 58 mg/dL (40-59)
[2025-03-12] MEDS: MORPHINE SULFATE 4 MG/ML SYR/VIAL IV ONE (09:34)
[2025-03-12 09:36] LABS: Urine Protein, UAD 1+ (Negative)
[2025-03-12 09:40] LABS: Amphetamine Screen, Urine Neg (NEGATIVE); Barbiturate Scree,Urine Neg (NEGATIVE); Benzodiazephine Screen, Urine Neg (NEGATIVE); Cannabinoid Screen, Urine Pos (NEGATIVE); Cocaine Screen, Urine Neg (NEGATIVE); Opiate Scree,Urine Neg (NEGATIVE); Phencyclidine Screen, Urine Neg (NEGATIVE)
--- NOTE | 2025-03-12 09:50 | DVHHP2 ---
History of Present Illness Reason for Visit: Abdominal pain History of Present Illness 54-year-old male with a history of diabetes mellitus, hypertension, and CAD presents in the ED with abdominal pain, nausea, vomiting, and dizziness that began yesterday afternoon. The patient reports, the onset was gradual and provoked. The abdominal pain is localized to the lower abdomen, nonradiating and described as burning and sharp in quality. In the emergency department blood glucose was found into 45, and iron gap 17, CO2 21, beta-hydroxybuteric acid 0.728, lactic acid is 3.[address] abdomen and pelvis revealed 4 mm and 4.5 mm right lower lobe noncalcified pulmonary nodules, mild distal esophageal wall thickening, and moderate prostatic enlargement. Upon assessment, noted hematemesis. Patient denies melena. Reports continue using marijuana. Ex-tobacco use. Past Medical History As stated in HPI Review of Systems Constitutional: Yes: Malaise, Other Eyes: No: Pain, Vision change, Conjunctivae inflammation, Eyelid inflammation, Other, Redness ENT: No: Ear pain, Ear discharge, Nose pain, Nose discharge, Nose congestion, Mouth pain, Mouth swelling, Throat pain, Throat swelling, Other Respiratory: No: Cough, Dry, Shortness of breath, SOB with excertion, Wheezing, Hemoptysis, Pleuritic Pain, Sputum, Wheezing, Other Cardiovascular: No: Chest Pain, Palpitations, Orthopnea, Paroxysmal Noc. Dyspnea, Edema, Lt Headedness, Other Gastrointestinal: Nausea, Vomiting, Other (Positive for abdominal pain, nausea, vomiting,); No: Abdominal Pain, Diarrhea, Constipation, Melena, Hematochezia Genitourinary: No Dysuria, No Frequency, No Incontinence, No Hematuria, No Retention, No Other Musculoskeletal: No: other, neck pain, shoulder pain, arm pain, back pain, hand pain, leg pain, foot pain Skin: No: Rash, Lesions, Jaundice, Bruising, Other Neurological: Other (Positive for dizziness) Allergies: Coded Allergies: NO KNOWN ALLERGIES (Unverified , 01/31/20) Medications Current Medications Medications Dose Ordered Sig/Alber Route Start Time Stop Time Status Last Admin Dose Admin Sodium Chloride 1,000 ml @ 100 mls/hr Q10H IV 03/12/25 08:45 03/12/25 09:15 100 MLS/HR Diagnostic Test (Pha) 1 strip ACHS 03/12/25 11:30 Insulin Human Regular ACHS SC 03/12/25 11:30 Dextrose 50 ml UD PRN IV 03/12/25 08:45 Acetaminophen/ Hydrocodone Bitart 1 tab Q4HP PRN PO 03/12/25 09:15 Ondansetron HCl 4 mg Q4HP PRN IV 03/12/25 09:15 Enoxaparin Sodium 40 mg DAILY SC 03/12/25 10:00 UNV Acetaminophen 650 mg Q6HP PRN PO 03/12/25 09:15 Morphine Sulfate 2 mg Q4HPRN PRN IV 03/12/25 09:15 Empaglifozin 10 mg DAILY@BREAKFAST PO 03/13/25 08:00 Pantoprazole Sodium 40 mg DAILY IV 03/12/25 10:00 Insulin Glargine 12 units HS SC 03/12/25 22:00 Exam Vital Signs Vital Signs Date Time Temp Pulse Resp B/P (MAP) Pulse Ox O2 Delivery O2 Flow Rate FiO2 03/12/25 08:00 96 03/12/25 08:00 99.0 18 115/73 (87) 100 99.0 03/12/25 07:32 Nasal Cannula* 6 44 General Appearance: Alert, Oriented X3, Cooperative, moderate distress HEENT: Atraumatic, PERRLA Respiratory: Clear to auscultation, Normal air movement Cardiovascular: Regular rate, Normal S1 Abdominal: Normal bowel sounds, Other (Soft, mild tenderness in lower quadrant, no rebound or guarding. Witnessed hematemesis) Extremities: No clubbing, No cyanosis, No edema Skin: No rashes, No breakdown Neuro: Normal gait, Normal speech, Normal tone Psych/Mental Status: Mental status NL Labs/Xrays Labs Test 03/12/25 08:58 03/12/25 08:37 03/12/25 07:45 03/12/25 01:42 Range/Units White Blood Count 11.7 H 4.4-10.8 10^3/uL Red Blood Count 4.39 L 4.5-5.90 10^6/uL Hemoglobin 13.3 L 13.5-17.5 g/dL Hematocrit 39.1 L 41.0-53.0 % Mean Corpuscular Volume 89.1 80.0-100.0 fL Mean Corpuscular Hemoglobin 30.3 28.0-32.0 pg Mean Corpuscular Hemoglobin Concent 33.9 32.0-36.0 g/dL Red Cell Distribution Width 14.7 H 11.8-14.3 % Platelet Count 257 140-450 10^3/uL Mean Platelet Volume 8.3 6.9-10.8 fL Neutrophils (%) (Auto) 76.0 37.0-80.0 % Lymphocytes (%) (Auto) 15.8 10.0-50.0 % Monocytes (%) (Auto) 7.7 0.0-12.0 % Eosinophils (%) (Auto) 0.0 0.0-7.0 % Basophils (%) (Auto) 0.5 0.0-2.0 % Neutrophils # (Auto) 8.9 H 1.6-8.6 10 ^3/uL Lymphocytes # (Auto) 1.8 0.4-5.4 10 ^3/uL Monocytes # (Auto) 0.9 0-1.3 10 ^3/uL Eosinophils # (Auto) 0 0-0.8 10 ^3/uL Basophils # (Auto) 0.1 0-0.2 10 ^3/uL Nucleated Red Blood Cells 0.1 % Sodium Level 142 136-145 mmol/L Potassium Level 3.5 3.5-5.1 mmol/L Chloride Level 103 98-107 mmol/L Carbon Dioxide Level 29 20-31 mmol/L Anion Gap 10 5-15 Blood Urea Nitrogen 23 9-23 mg/dL Creatinine 1.38 H 0.700-1.30 mg/dL Glomerular Filtration Rate Calc 60 >90 mL/min BUN/Creatinine Ratio 16.7 10.0-20.0 Serum Glucose 210 H 74-106 mg/dL Calcium Level 10.3 8.7-10.4 mg/dL Triglycerides Level 68 < 150 mg/dL LDL Cholesterol 98 < 100 mg/dL Lactic Acid Level 3.7 *H 0.4-2.0 mmol/L Test 03/11/25 23:39 03/11/25 23:05 Range/Units Blood Gas Specimen Type Arterial Blood Gas Sample Site Right brachial Blood Gas Patient Temperature 37.0 Arterial Blood Date Drawn [id number] Arterial Blood pH 7.721 *H 7.350-7.450 Arterial Blood Partial Pressure CO2 15.0 *L 35.0-48.0 mmHg Arterial Blood Partial Pressure O2 113.6 H 83.0-108.0 mmHg Arterial Blood HCO3 19.0 L 21.0-28.0 mmol/L Arterial Blood Oxygen Saturation 98.8 H 94.0-98.0 % Arterial Blood Base Excess 2.7 -2.0-3.0 mmol/L Arterial Blood Oxyhemoglobin 97.4 94.0-98.0 % Arterial Blood Carboxyhemoglobin 1.1 0.5-1.5 % Arterial Blood Methemoglobin 0.3 0.0-1.5 % Nnamdi Test N/a Blood Gas Total Hemoglobin 14.70 13.5-17.5 g/dL Blood Gas Modality Room air FiO2 % 21.0 Blood Gas Critical Value Read Back yes Blood Gas Notified Whom Blood Gas Notified Time [id number] Blood Gas Notified By beatriz najera, rt D-Dimer, Quantitative 0.46 0.0-0.49 mg/L FEU Total Bilirubin 1.1 H 0.2-1.0 mg/dL Aspartate Amino Transferase (AST) 25 13-40 U/L Alanine Aminotransferase (ALT) 20 7-40 U/L Alkaline Phosphatase 73 46-116 U/L Total Protein 8.3 H 5.7-8.2 g/dL Albumin 5.3 H 3.2-4.8 g/dL Lipase 41 12-53 U/L Beta-Hydroxybutyric Acid 0.728 H < 0.4 mmol/L PROCEDURE(s): ABPLIV - CT AB PEL WITH IV CON ONLY REASON: abd pain , vomiting ORDER NUMBER(s): [id number], ACCESSION NUMBER(s): [id number] EXAM: CT CT AB PEL WITH IV CON ONLY HISTORY: abd pain , vomiting COMPARISON: CT scan dated 05/28/2021 TECHNIQUE: Helical CT images of the abdomen and pelvis were performed with IV contrast. Sagittal and coronal reformatted images were obtained. This CT exam was performed using 1 or more of the following dose reduction techniques: Au tomated exposure control, adjustment of the mA and/or kv according to patient size, or the use of iterative reconstruction techniques. Radiation Dose Information: CT Dose: CTDI volume is 14.68 mGy. Dose-length product is 876.49 mGy*cm FINDINGS: CT abdomen: There is bilateral gynecomastia. There are mild ground-glass opacities in the lung bases. There are 4 mm and 4.5 mm noncalcified pulmonary nodules in the right middle lobe (images 11 and 17, series 3). The heart is not enlarged. There are coronary artery calcifications. There is wall thickening of the distal esophagus. The left kidney is malrotated. The liver, spleen, gallbla dder, pancreas, right kidney, and bilateral adrenal glands are unremarkable. No abdominal aortic aneurysm or dissection. CT pelvis: No abnormal bowel dilatation, free air, or free fluid. The appendix and urinary bladder are unremarkable. The prostate is moderately enlarged. There is moderate lumbar degenerative disc disease and facet arthropathy. There is aieh-je-dizotcsr osteoarthritis of the hips. IMPRESSION: 1. 4 mm and 4.5 mm right lower lobe noncalcified pulmonary nodules. Recommend follow-up according to Fleischner society guidelines. 2. Coronary artery disease. 3. Mild distal esophageal wall thickening. Correlate for signs and symptoms of esophagitis. 4. Moderate prostatic enlargement. Recommend outpatient urology consultation if not already obtained. 5. No evidence of bowel obstruction, acute appendicitis, or other acute process in the abdomen or pelvis. SEPSIS Sepsis Screen Date sepsis recognized/suspect: Mar 12, 2025 Time Sepsis recognized/suspect: 729 Recent Procedure: No On Antibiotic Therapy: No Respiratory Rate >20: No Heart Rate >90: Yes Temp<36 C (96.8 F) or >38.3 C: No SBP <90 or MAP <65 mmHG: No New Acute Mental Status Change: No Is the patient on CPAP, BIPAP,: No Physician Orders Ct Ab Pel With Iv Con Only (03/12/25 03:16) Basic Metabolic Panel (03/12/25 08:37) Hemoglobin A1c (03/12/25 08:37) Thyroid Stimulating Hormone (03/12/25 08:37) Lipid Panel (03/12/25 08:37) Urinalysis (03/12/25 08:37) Sodium Chloride 0.9% (03/12/25 08:45) Glucose Blood (Accu-Chek Comfort Curve T (03/12/25 11:30) Insulin R (Human) (Insulin R) (03/12/25 11:30) Dextrose 50% Syringe (03/12/25 08:45) Drug Screen (03/12/25 09:06) Admit (03/12/25 09:13) Code Status (03/12/25 09:13) Hydrocodone-Acet 5/325mg Tab ([facility] 32 (03/12/25 09:15) Ondansetron Hcl (Zofran) (03/12/25 09:15) Enoxaparin Sodium (Lovenox) (03/12/25 10:00) Complete Blood Count (03/13/25 04:00) Comprehensive Metabolic Panel (03/13/25 04:00) Condition: Fair (03/12/25 09:13) Acetaminophen Tablet (Tylenol Tablet) (03/12/25 09:15) Morphine Sulfate Injection (03/12/25 09:15) Empagliflozin (Jardiance) (03/13/25 08:00) Pantoprazole (Protonix) (03/12/25 10:00) Insulin Lantus (Glargine) (Lantus) (03/12/25 22:00) Insulin Lantus (Glargine) (Lantus) (03/12/25 09:30) Vital Signs Date Time Temp Pulse Resp B/P (MAP) Pulse Ox O2 Delivery O2 Flow Rate FiO2 03/12/25 08:00 96 03/12/25 08:00 99.0 100 18 115/73 (87) 100 99.0 03/12/25 07:32 96 18 97 Nasal Cannula* 6 44 03/12/25 06:36 111 20 96 Room Air* 0 21 21 03/12/25 06:00 100.0 100.0 03/12/25 05:26 98.4 101 18 122/87 (99) 97 98.4 Laboratory Tests Test 03/11/25 23:05 03/12/25 00:06 03/12/25 01:42 03/12/25 08:58 White Blood Count 11.6 10^3/uL (4.4-10.8) H 11.7 10^3/uL (4.4-10.8) H Lactic Acid Level 3.7 mmol/L (0.4-2.0) *H 3.7 mmol/L (0.4-2.0) *H Medications Medications Dose Ordered Sig/Alber Route Start Time Stop Time Status Last Admin Dose Admin Insulin Human Regular 6 units ONCE ONCE SC 03/11/25 23:00 03/11/25 23:01 DC 03/12/25 01:31 6 UNITS Ondansetron HCl 4 mg ONCE ONCE IV 03/11/25 23:00 03/11/25 23:01 DC 03/12/25 01:26 4 MG Piperacillin Sod/ Tazobactam Sod 100 ml @ 100 mls/hr ONCE ONCE IV 03/12/25 03:15 03/12/25 04:14 DC 03/12/25 04:04 100 MLS/HR Sodium Chloride 1,000 ml @ 100 mls/hr Q10H IV 03/12/25 08:45 03/12/25 09:15 100 MLS/HR Sodium Chloride 1,000 ml @ 1,000 mls/hr Q1H ONCE IV 03/12/25 03:30 03/12/25 04:29 DC 03/12/25 04:03 1,000 MLS/HR Sodium Chloride 1,000 ml @ 1,000 mls/hr Q1H ONCE IVB 03/11/25 23:00 03/11/25 23:59 DC 03/12/25 01:28 1,000 MLS/HR Assessment/Plan Assessment/Plan # uncontrolled diabetes # possible mild DKA # DM type 2 with hyperglycemia (A1C 9.2 in August 2024) # lactic acidosis * Admit to M/S unit * Repeat labs * Aggressive glucose control * Insulin sliding * Lantus, continue Jardiance * IV fluid * Check A1c, Lipid panel # nausea and vomiting, ?Cannabinoid hyperemesis # hematemesis # rule out GI bleed * PPI * NPO until seen by GI * Antiemetics * IV fluid * Pain control * Gi consult # leukocytosis * Empiric antibiotic * UA pending # MYA VMN likely from dehydration * IV fluid * Monitor kidney function # right lower lobe pulmonary nodules (incidental finding) * CT chest * Pulmonary follow-up # marijuana use # Ex-tobacco use * Counseled on marijuana use * UDS # CAD * Monitor # moderate prostatic enlargement * Outpatient urology follow-up # obesity * Lifestyle modification counseled with diet, regular exercise, weight loss # hypertension * Controlled with diet DVT prophylaxis with SCD PPI prophylaxis Medical plan discussed with patient and RN Plan discussed with: Patient My Orders Orders - BRIDGET GONZALEZ PIZZAMAKER Procedure Category Date Status Time Basic Metabolic Panel LAB 03/12/25 In Process 08:37 Hemoglobin A1c LAB 03/12/25 In Process 08:37 Thyroid Stimulating LAB 03/12/25 In Process Hormone 08:37 Lipid Panel LAB 03/12/25 In Process 08:37 Urinalysis LAB 03/12/25 In Process 08:37 Sodium Chloride 0.9% PHA 03/12/25 In Process 08:45 Glucose Blood PHA 03/12/25 In Process (Accu-Chek Comfort 11:30 Insulin R (Human) PHA 03/12/25 In Process (Insulin R) 11:30 Dextrose 50% Syringe PHA 03/12/25 In Process 08:45 Drug Screen LAB 03/12/25 In Process 09:06 Admit ADMIT 03/12/25 Transmitted 09:13 Code Status CODE 03/12/25 Transmitted 09:13 Hydrocodone-Acet PHA 03/12/25 In Process 5/325mg Tab ([facility] 09:15 Ondansetron Hcl PHA 03/12/25 In Process (Zofran) 09:15 Enoxaparin Sodium PHA 03/12/25 Logged (Lovenox) 10:00 Complete Blood Count LAB 03/13/25 Verified 04:00 Comprehensive LAB 03/13/25 Verified Metabolic Panel 04:00 Condition: Fair MARGRET 03/12/25 In Process 09:13 Acetaminophen Tablet PHA 03/12/25 In Process (Tylenol Tablet) 09:15 Morphine Sulfate PHA 03/12/25 In Process Injection 09:15 Empagliflozin PHA 03/13/25 In Process (Jardiance) 08:00 Pantoprazole PHA 03/12/25 In Process (Protonix) 10:00 Insulin Lantus PHA 03/12/25 In Process (Glargine) (Lantus) 22:00 Insulin Lantus PHA 03/12/25 In Process (Glargine) (Lantus) 09:30 Date of Service: Mar 12, 2025 Billing Provider: BRIDGET GONZALEZ Common Visit Codes: [id number] INP/OBS CARE (HIGH) Consultation Codes: [id number] CONSULT <45MIN BRIDGET GONZALEZ Mar 12, 2025 09:50
[2025-03-12] MEDS ORDERED: ENOXAPARIN SOD 40 MG/0.4 ML SYRINGE SC SCH (10:00)
[2025-03-12] MEDS: PANTOPRAZOLE 40 MG/10 ML VIAL INJ IV SCH (10:41)
[2025-03-12] MEDS: PROCHLORPERAZINE EDISYLATE 5 MG/ML 2ML VIAL IV ONE (10:43)
[2025-03-12] MEDS: INSULIN LANTUS (GLARGINE) 1 /0.01ml (100units/ml) SC ONE (10:44)
[2025-03-12] MEDS: ACCU-CHEK COMFORT CURVE STRIP VI SCH (11:39)
[2025-03-12] MEDS: InsuLIN REG 1unit/0.01ml Soln (100units/ml) SC SCH (11:39)
[2025-03-12] MEDS: cefTRIAXone 1GM/50ML D5W 50 ML IV ONE (11:52)
[2025-03-12 13:29] VITALS: BP 138/88; PULSE 100; RESP 20; TEMP 98
[2025-03-12 13:39] VITALS: BP 138/88; PULSE 100; RESP 20; TEMP 98; O2SAT 97
[2025-03-12] MEDS: ACETAMINOPHEN 325 MG TAB PO PRN (16:40)
[2025-03-12] MEDS: ONDANSETRON HCL 4 MG/2 ML VIAL IV PRN (16:40)
[2025-03-12 16:49] VITALS: BP 130/85; PULSE 93; RESP 20; TEMP 97.7; O2SAT 97
--- NOTE | 2025-03-12 17:04 | DVH ---
Procedure: CT CHEST WITHOUT CONTRAST Reason for study/Clinical History: pulmonary nodules Comparison Study: CT CHEST WITHOUT CONTRAST on DOS: 09/02/24 TECHNIQUE: Multidetector CT of the chest was performed from the lung apices to the upper abdomen with out the use of intravenous contract. Axial, coronal and sagittal multiplanar reformats were performed . Radiation Dose Information: CT Dose: CTDI volume is 19 mGy. Dose-length product is 836 mGy*cm The dose indicators for CT are the volume Computed Tomography (CT) Dose Index (CTDIvol) and the Dose Length Product (DLP), and are measured in units of mGy and mGy-cm, respectively. These indicators are not patient dose, but values generated from the CT scanner acquisition factors. The report includes radiation exposure data for exposures received during this examination. FINDINGS: Lower neck: Unremarkable. Lungs: Biapical scarring, [id number]. Moderate centrilobular emphysema. 0.8 cm nodule i n the right upper lobe, image 21. Heart/Vascular Structures: Cardiomegaly. Coronary artery calcifications. Vascular calcifications of t he aorta. Lymph Nodes: No adenopathy Pleura: No pleural effusion or significant pneumothorax. Musculoskeletal: No acute osseous abnormality. Soft tissues: Normal. Upper abdomen: Limited portions of the upper abdomen are unremarkable. IMPRESSION: Biapical scarring. Moderate centrilobular emphysema. 0.8 cm nodule in the right upper lobe. Findings on CT from 09/02/2024 appear resolved and May have been infectious or inflammatory at the ti vt. Fleischner Society pulmonary nodule recommendations (2017): Single solid nodule <6 mm Low-risk patients: no routine follow-up required High-risk patients: optional CT at 12 months (particularly with suspicious nodule morphology and/or upper lobe location) Solitary solid nodule 6-8 mm Low-risk patients: CT at 6-12 months, then consider CT at 18-24 months High-risk patients: CT at 6-12 months, then CT at 18-24 months Solitary solid nodule >8 mm (>250 mm3) Low-risk and high-risk patients: consider CT at 3 months, PET/CT, or tissue sampling Multiple solid nodules <6 mm Low-risk patients: no routine follow-up required High-risk patients: optional CT at 12 months Multiple solid nodules >6 mm Low-risk patients: CT at 3-6 months, then consider CT at 18-24 months High-risk patients: CT at 3-6 months, then CT at 18-24 months When multiple nodules are present, the most suspicious nodule should guide further individualized management. Solitary groundglass opacities < 6 mm require no follow-up Multiple groundglass opacities < 6 mm: CT 3-6 months. If stable consider CT at 2 , and 4 years Groundglass opacities >6 mm: follow-up in 6-12 months and then every 2 years for 5 years. Groundglass opacities greater than 6 mm with part solid component follow-up CT in 3-6 months to confirm persistence. If unchanged and solid component remains less than [address] for 5 years Multiple groundglass opacities greater than 6 mm: CT at 3-6 months. Subsequent management based on the most suspicious nodules. These recommendations do not necessarily apply to women, patients with immunosuppression or a prior history of cancer, patients with multiple nodules that are suspicious for metastasis or infection, or patients with mediastinal lymphadenopathy or pleural effusion in whom cancer is strongly suspected.
--- NOTE | 2025-03-12 17:12 | DVHINCON2 ---
Date of service: Mar 12, 2025 Referring Physician Darcy Reason for Consultation Hematemesis History of Present Illness The patient is a 54-year-old male with a history of uncontrolled diabetes , hypertension , coronary artery disease with nausea vomiting and hematemesis. Patient was admitted with a hemoglobin of the proximally 14. White count was 11.6. Patient has mild esophageal wall thickening on CT scan. Patient denies melena. He has a prior history tobacco use. He smokes marijuana. He has been having epigastric abdominal pain that is sharp in nature without radiation. GI consultation was obtained for evaluation. He has a history of methamphetamine use. Past Medical History As above Past Surgical History None Contributory Family History: Diabetes mellitus G8 MOTHER Hypertension G8 MOTHER Allergies: Coded Allergies: NO KNOWN ALLERGIES (Unverified , 01/31/20) Home Meds Active Scripts Lancets (Freestyle Lancets) Lancets Mis, EA XX TIDWMEALS, #120 Prov:PHIL GARCIA MD 09/04/24 Blood Glucose Monitoring Suppl (D-Care Glucometer Kit/Glu W/Device) 1 Kit Kit, KIT XX TIDWMEALS, #1 Prov:PHLI GARCIA MD 09/04/24 Metformin Hydrochloride (Metformin Hcl) 850 Mg Tab, 1 TAB PO BID, #60 TAB 1 Refill Prov:PHIL GARCIA MD 09/04/24 Empagliflozin (Jardiance) 10 Mg Tab, 10 MG PO DAILY@BREAKFAST, #60 TAB Prov:PHIL GARCIA MD 09/04/24 Metronidazole (Flagyl) 500 Mg Tab, 1 TAB PO BID, #14 TAB Prov:PHIL GARCIA MD 09/04/24 Cefdinir (Cefdinir) 300 Mg Cap, 1 CAP PO BID, #14 CAP Prov:PHIL GARCIA MD 09/04/24 Current Medications Current Medications Medications (Trade) Dose Ordered Sig/Alber Route PRN Reason Start Time Stop Time Status Last Admin Sodium Chloride 1,000 ml @ 100 mls/hr Q10H IV 03/12/25 08:45 03/12/25 09:15 Diagnostic Test (Pha) (Accu-Chek Comfort Curve T) 1 strip ACHS 03/12/25 11:30 03/12/25 11:39 Insulin Human Regular (InsuLIN R) ACHS SC 03/12/25 11:30 03/12/25 11:39 Dextrose 50 ml UD PRN IV Blood Sugar LESS THAN 60 03/12/25 08:45 Acetaminophen/ Hydrocodone Bitart ([place] 5/325MG Tab) 1 tab Q4HP PRN PO MODERATE PAIN (4-6 PAIN SCALE) 03/12/25 09:15 Ondansetron HCl (Zofran) 4 mg Q4HP PRN IV NAUSEA / VOMITING 03/12/25 09:15 03/12/25 16:40 Enoxaparin Sodium (Lovenox) 40 mg DAILY SC 03/12/25 10:00 03/12/25 09:30 DC Acetaminophen (Tylenol Tablet) 650 mg Q6HP PRN PO PAIN SCALE 1-3 OR TEMP>100.4 03/12/25 09:15 03/12/25 16:40 Morphine Sulfate 2 mg Q4HPRN PRN IV SEVERE PAIN (7-10 PAIN SCALE) 03/12/25 09:15 Empaglifozin (Jardiance) 10 mg DAILY@BREAKFAST PO 03/13/25 08:00 Pantoprazole Sodium (Protonix) 40 mg DAILY IV 03/12/25 10:00 03/12/25 10:41 Insulin Glargine (Lantus) 12 units HS SC 03/12/25 22:00 Metronidazole 100 ml @ 100 mls/hr Q8HR IV 03/12/25 14:00 03/12/25 14:00 Ceftriaxone Sodium 50 ml @ 100 mls/hr DAILY@09 IV 03/13/25 09:00 Review of Systems Review of systems as per HPI Vital Signs Vital Signs Date Time Temp Pulse Resp B/P (MAP) Pulse Ox O2 Delivery O2 Flow Rate FiO2 03/12/25 16:49 97.7 93 20 130/85 (100) 97 97.7 03/12/25 13:29 Room Air* 0 21 Physical Exam Alert and oriented x4 no distress NC/AT EOMI PERRLA SOB clear Regular rate and rhythm Soft nontender nondistended abdomen No clubbing cyanosis or edema Labs/Diagnostic Data Labs Test 03/12/25 10:38 03/12/25 08:58 03/12/25 08:37 03/12/25 07:45 Range/Units POC Glucose 231 H 70-106 mg/dl White Blood Count 11.7 H 4.4-10.8 10^3/uL Red Blood Count 4.39 L 4.5-5.90 10^6/uL Hemoglobin 13.3 L 13.5-17.5 g/dL Hematocrit 39.1 L 41.0-53.0 % Mean Corpuscular Volume 89.1 80.0-100.0 fL Mean Corpuscular Hemoglobin 30.3 28.0-32.0 pg Mean Corpuscular Hemoglobin Concent 33.9 32.0-36.0 g/dL Red Cell Distribution Width 14.7 H 11.8-14.3 % Platelet Count 257 140-450 10^3/uL Mean Platelet Volume 8.3 6.9-10.8 fL Neutrophils (%) (Auto) 76.0 37.0-80.0 % Lymphocytes (%) (Auto) 15.8 10.0-50.0 % Monocytes (%) (Auto) 7.7 0.0-12.0 % Eosinophils (%) (Auto) 0.0 0.0-7.0 % Basophils (%) (Auto) 0.5 0.0-2.0 % Neutrophils # (Auto) 8.9 H 1.6-8.6 10 ^3/uL Lymphocytes # (Auto) 1.8 0.4-5.4 10 ^3/uL Monocytes # (Auto) 0.9 0-1.3 10 ^3/uL Eosinophils # (Auto) 0 0-0.8 10 ^3/uL Basophils # (Auto) 0.1 0-0.2 10 ^3/uL Nucleated Red Blood Cells 0.1 % Sodium Level 142 136-145 mmol/L Potassium Level 3.5 3.5-5.1 mmol/L Chloride Level 103 98-107 mmol/L Carbon Dioxide Level 29 20-31 mmol/L Anion Gap 10 5-15 Blood Urea Nitrogen 23 9-23 mg/dL Creatinine 1.38 H 0.700-1.30 mg/dL Glomerular Filtration Rate Calc 60 >90 mL/min BUN/Creatinine Ratio 16.7 10.0-20.0 Serum Glucose 210 H 74-106 mg/dL Hemoglobin A1c 8.4 H <5.7 % A1C Calcium Level 10.3 8.7-10.4 mg/dL Triglycerides Level 68 < 150 mg/dL Cholesterol Level 168 < 200 mg/dL LDL Cholesterol 98 < 100 mg/dL HDL Cholesterol 58 40-59 mg/dL Thyroid Stimulating Hormone (TSH) 1.29 0.55-4.78 uIU/mL Urine Color Yellow Yellow Urine Clarity Clear Clear Urine pH 8.0 5.0-9.0 Urine Specific [place] > 1.050 H 1.001-1.035 Urine Protein 1+ H Negative Urine Ketones 1+ H Negative Urine Blood Negative Negative /uL Urine Nitrite Negative Negative Urine Bilirubin Negative Negative Urine Urobilinogen Normal Negative mg/dL Urine Leukocyte Esterase Negative Negative /uL Urine RBC 1 0 - 3 /hpf Urine Microscopic WBC 1 0-3 /HPF Urine Squamous Epithelial Cells None seen <5 /hpf Urine Bacteria Few H None Seen /hpf Urine Glucose 4+ H Normal mg/dL Urine Opiates Screen Neg NEGATIVE Urine Fentanyl Screen Neg NEGATIVE Urine Barbiturates Screen Neg NEGATIVE Urine Phencyclidine Screen Neg NEGATIVE Urine Amphetamines Screen Neg NEGATIVE Urine Benzodiazepines Screen Neg NEGATIVE Urine Cocaine Screen Neg NEGATIVE Urine Cannabinoids Screen Pos NEGATIVE Test 03/12/25 01:42 03/11/25 23:39 03/11/25 23:05 Range/Units Lactic Acid Level 3.7 *H 0.4-2.0 mmol/L Blood Gas Specimen Type Arterial Blood Gas Sample Site Right brachial Blood Gas Patient Temperature 37.0 Arterial Blood Date Drawn [id number] Arterial Blood pH 7.721 *H 7.350-7.450 Arterial Blood Partial Pressure CO2 15.0 *L 35.0-48.0 mmHg Arterial Blood Partial Pressure O2 113.6 H 83.0-108.0 mmHg Arterial Blood HCO3 19.0 L 21.0-28.0 mmol/L Arterial Blood Oxygen Saturation 98.8 H 94.0-98.0 % Arterial Blood Base Excess 2.7 -2.0-3.0 mmol/L Arterial Blood Oxyhemoglobin 97.4 94.0-98.0 % Arterial Blood Carboxyhemoglobin 1.1 0.5-1.5 % Arterial Blood Methemoglobin 0.3 0.0-1.5 % Nnamdi Test N/a Blood Gas Total Hemoglobin 14.70 13.5-17.5 g/dL Blood Gas Modality Room air FiO2 % 21.0 Blood Gas Critical Value Read Back yes Blood Gas Notified Whom Blood Gas Notified Time [id number] Blood Gas Notified By beatriz najera, rt D-Dimer, Quantitative 0.46 0.0-0.49 mg/L FEU Total Bilirubin 1.1 H 0.2-1.0 mg/dL Aspartate Amino Transferase (AST) 25 13-40 U/L Alanine Aminotransferase (ALT) 20 7-40 U/L Alkaline Phosphatase 73 46-116 U/L Total Protein 8.3 H 5.7-8.2 g/dL Albumin 5.3 H 3.2-4.8 g/dL Lipase 41 12-53 U/L Beta-Hydroxybutyric Acid 0.728 H < 0.4 mmol/L Assessment 1. Uncontrolled diabetes 2. Hypertension 3. Coronary artery disease 4. Hematemesis 5. Esophageal wall thickening 6. History is polysubstance abuse 7. Nausea and vomiting Differential diagnosis includes cannabinoid hyperemesis syndrome versus erosive esophagitis versus other Problems(with codes): (1) Abdominal pain of unknown etiology (2) Constipation (3) Dehydration (4) Acute renal injury (5) Uncontrolled diabetes mellitus Plan/Recommendation 1. Diabetes control 2. Antiemetics 3. Follow H and H 4. Proton pump inhibitor twice daily 5. Consider endoscopy 6. Counseling for substance abuse Plan discussed with: Patient BETTYE GUZMAN MD Mar 12, 2025 17:12
[2025-03-12] MEDS: HYDROcodone-ACET 5/325MG TAB PO PRN (20:14)
[2025-03-12 21:00] VITALS: BP 136/84; PULSE 96; RESP 20; TEMP 98.4; O2SAT 97
[2025-03-12] MEDS: INSULIN LANTUS (GLARGINE) 1 /0.01ml (100units/ml) SC SCH (21:38)
[2025-03-13] VITALS (8 sets, daily range): BP systolic 118–162; BP diastolic 71–100; PULSE 82–94; RESP 17–20; TEMP 97.9–98.9; O2SAT 92–98
[2025-03-13] MEDS: EMPAGLIFLOZIN 10 MG TAB PO SCH (08:00)
[2025-03-13 08:14] LABS: Hematocrit 37.0 % (41.0-53.0); Hemoglobin 12.5 g/dL (13.5-17.5); Mean Corpuscular Hemoglobin 30.7 pg (28.0-32.0); Mean Corpuscular Volume 91.0 fL (80.0-100.0); Nucleated Red Blood Cells % 0.1 %
[2025-03-13 08:18] LABS: Alanine Aminotransferase 15 U/L (7-40); Albumin 4.4 g/dL (3.2-4.8); Alkaline Phosphatase 57 U/L (46-116); Anion Gap 10 (5-15); BUN/Creatinine Ratio 19.5 (10.0-20.0); Bilirubin, Total 0.8 mg/dL (0.2-1.0); Blood Urea Nitrogen 22 mg/dL (9-23); Calcium 9.7 mg/dL (8.7-10.4); Carbon Dioxide 28 mmol/L (20-31); Chloride 107 mmol/L (98-107); Potassium 3.6 mmol/L (3.5-5.1); Sodium 145 mmol/L (136-145); Total Protein 7.0 g/dL (5.7-8.2)
[2025-03-13 08:23] LABS: Glucose 119 mg/dL (74-106)
[2025-03-13] MEDS: cefTRIAXone 1GM/50ML D5W 50 ML IV SCH (09:23)
[2025-03-13] MEDS: MORPHINE SULFATE INJ 2 MG/ml SYRG IV PRN (10:35)
--- NOTE | 2025-03-13 12:54 | DVHPN2 ---
Subjective Patient reports having some nausea with epigastric pain earlier this a.m.. Reviewed: Care Plan, H&P, Labs, Medications Changes from previous H/P or p: No Changes General: Per HPI Eyes: No Pain, No Vision change, No Conjunctivae inflammation, No Eyelid inflammation, No Other, No Redness ENT: No Ear pain, No Ear discharge, No Nose pain, No Nose discharge, No Nose congestion, No Mouth pain, No Mouth swelling, No Throat pain, No Throat swelling, No Other Cardiovascular: No Chest Pain, No Palpitations, No Orthopnea, No Paroxysmal Noc. Dyspnea, No Edema, No Lt Headedness, No Other Respiratory: No Cough, No Dry, No Shortness of breath, No SOB with excertion, No Wheezing, No Hemoptysis, No Pleuritic Pain, No Sputum, No Other Gastrointestinal: Nausea, Vomiting; No Abdominal Pain, No Diarrhea, No Constipation, No Melena, No Hematochezia; Other (Positive for abdominal pain, nausea, vomiting,) Genitourinary: No Dysuria, No Frequency, No Incontinence, No Hematuria, No Retention, No Other Musculoskeletal: No other, No neck pain, No shoulder pain, No arm pain, No back pain, No hand pain, No leg pain, No foot pain Skin: No Rash, No Lesions, No Jaundice, No Bruising, No Other Objective Vitals Vital Signs Date Time Temp Pulse Resp B/P (MAP) Pulse Ox O2 Delivery O2 Flow Rate FiO2 03/13/25 12:24 98.4 89 19 120/73 (89) 94 98.4 03/13/25 08:00 Room Air* 0 21 Intake/Output Intake and Output 03/13/25 07:00 Intake Total 1375 ml Balance 1375 ml Intake Oral 0 ml IV Total 1375 ml # Voids 2 General Appearance: Alert, Oriented X3, Cooperative, mild distress HEENT: Atraumatic, PERRLA Lungs: Clear to auscultation, Normal air movement Cardiovascular: Normal S1, Normal S2 Abdomen: Normal bowel sounds, Soft, No tenderness, No hepatospenomegaly, No masses Back: Flank Tenderness, Midline Tenderness Musculoskeletal: Normal sensory function, Normal motor function Extremities: No edema, Normal pulses, No tenderness/swelling Neuro: Normal gait, Normal speech Psych/Mental Status: Mental status NL, Mood NL Medications Current Medications Medications Dose Ordered Sig/Alber Route Start Time Stop Time Status Last Admin Dose Admin Sodium Chloride 1,000 ml @ 100 mls/hr Q10H IV 03/12/25 08:45 03/13/25 02:58 100 MLS/HR Diagnostic Test (Pha) 1 strip ACHS 03/12/25 11:30 03/13/25 12:01 1 STRIP Insulin Human Regular ACHS SC 03/12/25 11:30 03/13/25 12:01 2 UNITS Dextrose 50 ml UD PRN IV 03/12/25 08:45 Acetaminophen/ Hydrocodone Bitart 1 tab Q4HP PRN PO 03/12/25 09:15 03/12/25 20:14 1 TAB Ondansetron HCl 4 mg Q4HP PRN IV 03/12/25 09:15 03/13/25 10:30 4 MG Acetaminophen 650 mg Q6HP PRN PO 03/12/25 09:15 03/13/25 06:17 650 MG Morphine Sulfate 2 mg Q4HPRN PRN IV 03/12/25 09:15 03/13/25 10:35 2 MG Empaglifozin 10 mg DAILY@BREAKFAST PO 03/13/25 08:00 Pantoprazole Sodium 40 mg DAILY IV 03/12/25 10:00 03/13/25 09:23 40 MG Insulin Glargine 12 units HS SC 03/12/25 22:00 Metronidazole 100 ml @ 100 mls/hr Q8HR IV 03/12/25 14:00 03/13/25 05:36 100 MLS/HR Ceftriaxone Sodium 50 ml @ 100 mls/hr DAILY@09 IV 03/13/25 09:00 03/13/25 09:23 100 MLS/HR Laboratory Results Laboratory Tests 03/13/25 06:00 Chemistry Test 03/13/25 06:00 Albumin 4.4 g/dL (3.2-4.8) Calcium Level 9.7 mg/dL (8.7-10.4) Total Protein 7.0 g/dL (5.7-8.2) LFT Test 03/13/25 06:00 Alanine Aminotransferase (ALT) 15 U/L (7-40) Alkaline Phosphatase 57 U/L (46-116) Aspartate Amino Transferase (AST) 23 U/L (13-40) Total Bilirubin 0.8 mg/dL (0.2-1.0) Urinalysis Test 03/12/25 07:45 Urine Color Yellow (Yellow) Urine Clarity Clear (Clear) Urine pH 8.0 (5.0-9.0) Urine Specific [place] > 1.050 (1.001-1.035) Urine Protein 1+ (Negative) H Urine Ketones 1+ (Negative) H Urine Blood Negative /uL (Negative) Urine Nitrite Negative (Negative) Urine Bilirubin Negative (Negative) Urine Urobilinogen Normal mg/dL (Negative) Urine Leukocyte Esterase Negative /uL (Negative) Urine RBC 1 /hpf (0 - 3) Urine Microscopic WBC 1 /HPF (0-3) Urine Squamous Epithelial Cells None seen /hpf (<5) Urine Bacteria Few /hpf (None Seen) H Urine Glucose 4+ mg/dL (Normal) H Microbiology Microbiology Date/Time Source Procedure Growth Status 03/12/25 00:06 Blood Blood Culture - Preliminary NO GROWTH AFTER 24 HOURS OF INCUBATION. Resulted Labs and/or images reviewed: Labs reviewed by me, Image(s) reviewed by me Assessment/Plan Assessment/Plan Impression: -rule out peptic ulcer disease. Reported hematemesis -probable cannabinoid induced hyperemesis -diabetes mellitus -leukocytosis, probable sirs -esophagitis Plan: -GI consultation: Recommendations reviewed -start consistent carbohydrate diet -DC IV fluids -continue regular insulin sliding scale -continue antibiotic therapy at this time. Probable discontinuation tomorrow -Lifestyle modification education: Instructed on the need to stop smoking in any form. -repeat labs in a.m. -continue Protonix, add Carafate 1 g tablet before each meal Total time spent with patient discussing and formulating plan of care: 35 minutes. This medical document was created using an electronic medical record system with [employer] dictation system. Although this document has been carefully reviewed, there may still be some phonetic and typographical errors. These areas are purely typographical due to imperfections of the software programs, and do not reflect any compromise in the patient's medical care. Plan discussed with: Patient, Other (RN) My Orders Orders - EUSEBIO JERONIMO NP Procedure Category Date Status Time Consistent DIET 03/13/25 Transmitted Carb(Ccho)Diabetes Lunch Basic Metabolic Panel LAB 03/14/25 Verified 04:00 Date of Service: Mar 13, 2025 Billing Provider: EUSEBIO JEROINMO NP Common Visit Codes: [id number] INP/OBS CARE(HIGH) EUSEBIO JERONIMO [employer] Mar 13, 2025 12:54
--- NOTE | 2025-03-13 13:48 | DVHPN2 ---
Subjective No changes Reviewed: Care Plan, H&P, Labs, Medications Changes from previous H/P or p: No Changes General: Per HPI Eyes: No Pain, No Vision change, No Conjunctivae inflammation, No Eyelid inflammation, No Other, No Redness ENT: No Ear pain, No Ear discharge, No Nose pain, No Nose discharge, No Nose congestion, No Mouth pain, No Mouth swelling, No Throat pain, No Throat swelling, No Other Cardiovascular: No Chest Pain, No Palpitations, No Orthopnea, No Paroxysmal Noc. Dyspnea, No Edema, No Lt Headedness, No Other Respiratory: No Cough, No Dry, No Shortness of breath, No SOB with excertion, No Wheezing, No Hemoptysis, No Pleuritic Pain, No Sputum, No Other Gastrointestinal: Nausea, Vomiting; No Abdominal Pain, No Diarrhea, No Constipation, No Melena, No Hematochezia; Other (Positive for abdominal pain, nausea, vomiting,) Genitourinary: No Dysuria, No Frequency, No Incontinence, No Hematuria, No Retention, No Other Musculoskeletal: No other, No neck pain, No shoulder pain, No arm pain, No back pain, No hand pain, No leg pain, No foot pain Skin: No Rash, No Lesions, No Jaundice, No Bruising, No Other Objective Vitals Vital Signs Date Time Temp Pulse Resp B/P (MAP) Pulse Ox O2 Delivery O2 Flow Rate FiO2 03/13/25 12:24 98.4 89 19 120/73 (89) 94 98.4 03/13/25 08:00 Room Air* 0 21 Intake/Output Intake and Output 03/13/25 07:00 Intake Total 1375 ml Balance 1375 ml Intake Oral 0 ml IV Total 1375 ml # Voids 2 General Appearance: Alert, Oriented X3, Cooperative, No acute distress, mild distress, moderate distress, severe distress, Other HEENT: Atraumatic, PERRLA Lungs: Clear to auscultation, Normal air movement, Other Cardiovascular: Regular rate, Normal S1, Normal S2, No murmurs, Gallops, Rubs, Other Abdomen: Normal bowel sounds, Soft, No tenderness, No hepatospenomegaly, No masses, Other Back: Flank Tenderness, Midline Tenderness Musculoskeletal: Normal sensory function, Normal motor function Extremities: No edema, Normal pulses, No tenderness/swelling Neuro: Normal gait, Normal speech Psych/Mental Status: Mental status NL, Mood NL Medications Current Medications Medications Dose Ordered Sig/Alber Route Start Time Stop Time Status Last Admin Dose Admin Diagnostic Test (Pha) 1 strip ACHS 03/12/25 11:30 03/13/25 12:01 1 STRIP Insulin Human Regular ACHS SC 03/12/25 11:30 03/13/25 12:01 2 UNITS Dextrose 50 ml UD PRN IV 03/12/25 08:45 Acetaminophen/ Hydrocodone Bitart 1 tab Q4HP PRN PO 03/12/25 09:15 03/12/25 20:14 1 TAB Ondansetron HCl 4 mg Q4HP PRN IV 03/12/25 09:15 03/13/25 10:30 4 MG Acetaminophen 650 mg Q6HP PRN PO 03/12/25 09:15 03/13/25 06:17 650 MG Morphine Sulfate 2 mg Q4HPRN PRN IV 03/12/25 09:15 03/13/25 10:35 2 MG Empaglifozin 10 mg DAILY@BREAKFAST PO 03/13/25 08:00 Pantoprazole Sodium 40 mg DAILY IV 03/12/25 10:00 03/13/25 09:23 40 MG Insulin Glargine 12 units HS SC 03/12/25 22:00 Metronidazole 100 ml @ 100 mls/hr Q8HR IV 03/12/25 14:00 03/13/25 13:25 100 MLS/HR Ceftriaxone Sodium 50 ml @ 100 mls/hr DAILY@09 IV 03/13/25 09:00 03/13/25 09:23 100 MLS/HR Sucralfate 1 gm ACHS PO 03/13/25 17:00 Laboratory Results Laboratory Tests 03/13/25 06:00 Chemistry Test 03/13/25 06:00 Albumin 4.4 g/dL (3.2-4.8) Calcium Level 9.7 mg/dL (8.7-10.4) Total Protein 7.0 g/dL (5.7-8.2) LFT Test 03/13/25 06:00 Alanine Aminotransferase (ALT) 15 U/L (7-40) Alkaline Phosphatase 57 U/L (46-116) Aspartate Amino Transferase (AST) 23 U/L (13-40) Total Bilirubin 0.8 mg/dL (0.2-1.0) Urinalysis Test 03/12/25 07:45 Urine Color Yellow (Yellow) Urine Clarity Clear (Clear) Urine pH 8.0 (5.0-9.0) Urine Specific [place] > 1.050 (1.001-1.035) Urine Protein 1+ (Negative) H Urine Ketones 1+ (Negative) H Urine Blood Negative /uL (Negative) Urine Nitrite Negative (Negative) Urine Bilirubin Negative (Negative) Urine Urobilinogen Normal mg/dL (Negative) Urine Leukocyte Esterase Negative /uL (Negative) Urine RBC 1 /hpf (0 - 3) Urine Microscopic WBC 1 /HPF (0-3) Urine Squamous Epithelial Cells None seen /hpf (<5) Urine Bacteria Few /hpf (None Seen) H Urine Glucose 4+ mg/dL (Normal) H Microbiology Microbiology Date/Time Source Procedure Growth Status 03/12/25 00:06 Blood Blood Culture - Preliminary NO GROWTH AFTER 24 HOURS OF INCUBATION. Resulted Labs and/or images reviewed: Labs reviewed by me, Image(s) reviewed by me Assessment/Plan Assessment/Plan Abdominal pain GI bleed Abnormal CT results with esophageal wall thickening Marijuana use History of amphetamine use in past Plan Discussed with Dr. Henderson Schedule for EGD tomorrow 03/14/2025. Discussed risks, benefits and alternatives of procedure and sedation patient understands and agrees Diet as tolerated NPO after midnight Protonix and Zofran Plan discussed with: Patient, Other (RN) My Orders Orders - CONSTANTINO POTTER Procedure Category Date Status Time Obtain Consent For: ORDERS 03/13/25 Transmitted 13:43 Npo (Nothing By DIET 03/13/25 Transmitted Mouth) Diet Dinner Obtain Consent For MARGRET 03/13/25 In Process Anesthesia 13:43 Date of Service: Mar 13, 2025 Billing Provider: CONSTANTINO POTTER Common Visit Codes: [id number] INP/OBS CARE(HIGH) CONSTANTINO POTTER Mar 13, 2025 13:48
[2025-03-13] MEDS: SUCRALFATE 1 GM TAB PO SCH (16:56)
[2025-03-14] VITALS (9 sets, daily range): BP systolic 121–150; BP diastolic 49–97; PULSE 73–87; RESP 12–20; TEMP 98–99; O2SAT 97–100
[2025-03-14 06:16] LABS: Chloride 105 mmol/L (98-107); Hematocrit 34.8 % (41.0-53.0); Hemoglobin 12.0 g/dL (13.5-17.5); Mean Corpuscular Hemoglobin 31.0 pg (28.0-32.0); Mean Corpuscular Volume 90.1 fL (80.0-100.0); Nucleated Red Blood Cells % 0.2 %; Sodium 141 mmol/L (136-145)
[2025-03-14 06:17] LABS: Anion Gap 9 (5-15); Carbon Dioxide 27 mmol/L (20-31)
[2025-03-14 06:18] LABS: Calcium 8.7 mg/dL (8.7-10.4)
[2025-03-14 06:22] LABS: BUN/Creatinine Ratio 17.8 (10.0-20.0); Blood Urea Nitrogen 18 mg/dL (9-23)
[2025-03-14 06:24] LABS: Glucose 109 mg/dL (74-106); Potassium 3.2 mmol/L (3.5-5.1)
[2025-03-14 06:29] LABS: INR 1.05 (0.9-1.15); Partial Thromboplastin Time 26.8 SEC (24.5-34.5); Prothrombin Time 11.1 sec (9.3-11.8)
--- NOTE | 2025-03-14 13:06 | DVHPN2 ---
Subjective Patient reports having some nausea with epigastric pain earlier this a.m.. Reviewed: Care Plan, H&P, Labs, Medications Changes from previous H/P or p: No Changes General: Per HPI Eyes: No Pain, No Vision change, No Conjunctivae inflammation, No Eyelid inflammation, No Other, No Redness ENT: No Ear pain, No Ear discharge, No Nose pain, No Nose discharge, No Nose congestion, No Mouth pain, No Mouth swelling, No Throat pain, No Throat swelling, No Other Cardiovascular: No Chest Pain, No Palpitations, No Orthopnea, No Paroxysmal Noc. Dyspnea, No Edema, No Lt Headedness, No Other Respiratory: No Cough, No Dry, No Shortness of breath, No SOB with excertion, No Wheezing, No Hemoptysis, No Pleuritic Pain, No Sputum, No Other Gastrointestinal: Nausea, Vomiting; No Abdominal Pain, No Diarrhea, No Constipation, No Melena, No Hematochezia; Other (Positive for abdominal pain, nausea, vomiting,) Genitourinary: No Dysuria, No Frequency, No Incontinence, No Hematuria, No Retention, No Other Musculoskeletal: No other, No neck pain, No shoulder pain, No arm pain, No back pain, No hand pain, No leg pain, No foot pain Skin: No Rash, No Lesions, No Jaundice, No Bruising, No Other Objective Vitals Vital Signs Date Time Temp Pulse Resp B/P (MAP) Pulse Ox O2 Delivery O2 Flow Rate FiO2 03/14/25 08:00 73 20 100 Room Air* 0 21 03/14/25 05:00 99.0 150/49 (82) 99.0 Intake/Output Intake and Output 03/14/25 07:00 Intake Total 1350 ml Balance 1350 ml Intake Oral 600 ml IV Total 750 ml # Voids 9 General Appearance: Alert, Oriented X3, Cooperative, No acute distress, mild distress, moderate distress, severe distress, Other HEENT: Atraumatic, PERRLA Lungs: Clear to auscultation, Normal air movement, Other Cardiovascular: Regular rate, Normal S1, Normal S2, No murmurs, Gallops, Rubs, Other Abdomen: Normal bowel sounds, Soft, No tenderness, No hepatospenomegaly, No masses, Other Back: Flank Tenderness, Midline Tenderness Musculoskeletal: Normal sensory function, Normal motor function Extremities: No edema, Normal pulses, No tenderness/swelling Neuro: Normal gait, Normal speech Skin: Dry, Intact Psych/Mental Status: Mental status NL, Mood NL Medications Current Medications Medications Dose Ordered Sig/Alber Route Start Time Stop Time Status Last Admin Dose Admin Diagnostic Test (Pha) 1 strip ACHS 03/12/25 11:30 03/14/25 06:19 1 STRIP Insulin Human Regular ACHS SC 03/12/25 11:30 03/13/25 12:01 2 UNITS Dextrose 50 ml UD PRN IV 03/12/25 08:45 Acetaminophen/ Hydrocodone Bitart 1 tab Q4HP PRN PO 03/12/25 09:15 03/13/25 23:19 1 TAB Ondansetron HCl 4 mg Q4HP PRN IV 03/12/25 09:15 03/13/25 10:30 4 MG Acetaminophen 650 mg Q6HP PRN PO 03/12/25 09:15 03/13/25 06:17 650 MG Morphine Sulfate 2 mg Q4HPRN PRN IV 03/12/25 09:15 03/13/25 20:49 2 MG Empaglifozin 10 mg DAILY@BREAKFAST PO 03/13/25 08:00 Pantoprazole Sodium 40 mg DAILY IV 03/12/25 10:00 03/14/25 08:54 40 MG Insulin Glargine 12 units HS SC 03/12/25 22:00 03/13/25 22:00 12 UNITS Metronidazole 100 ml @ 100 mls/hr Q8HR IV 03/12/25 14:00 03/14/25 06:18 100 MLS/HR Ceftriaxone Sodium 50 ml @ 100 mls/hr DAILY@09 IV 03/13/25 09:00 03/14/25 08:54 100 MLS/HR Sucralfate 1 gm ACHS PO 03/13/25 17:00 03/13/25 22:57 1 GM Laboratory Results Laboratory Tests 03/14/25 05:44 Chemistry Test 03/14/25 05:44 Calcium Level 8.7 mg/dL (8.7-10.4) Coagulation Test 03/14/25 05:44 Prothrombin Time 11.1 sec (9.3-11.8) Prothrombin Time INR 1.05 (0.9-1.15) Activated Partial Thromboplast Time 26.8 SEC (24.5-34.5) Urinalysis Test 03/12/25 07:45 Urine Color Yellow (Yellow) Urine Clarity Clear (Clear) Urine pH 8.0 (5.0-9.0) Urine Specific [place] > 1.050 (1.001-1.035) Urine Protein 1+ (Negative) H Urine Ketones 1+ (Negative) H Urine Blood Negative /uL (Negative) Urine Nitrite Negative (Negative) Urine Bilirubin Negative (Negative) Urine Urobilinogen Normal mg/dL (Negative) Urine Leukocyte Esterase Negative /uL (Negative) Urine RBC 1 /hpf (0 - 3) Urine Microscopic WBC 1 /HPF (0-3) Urine Squamous Epithelial Cells None seen /hpf (<5) Urine Bacteria Few /hpf (None Seen) H Urine Glucose 4+ mg/dL (Normal) H Microbiology Microbiology Date/Time Source Procedure Growth Status 03/12/25 00:06 Blood Blood Culture - Preliminary NO GROWTH AFTER 48 HOURS OF INCUBATION. Resulted Labs and/or images reviewed: Labs reviewed by me, Image(s) reviewed by me Assessment/Plan Assessment/Plan Impression: -rule out peptic ulcer disease. Reported hematemesis -probable cannabinoid induced hyperemesis -diabetes mellitus -leukocytosis, probable sirs -esophagitis Plan: Events: Patient reporting having some epigastric pain diet yesterday. -GI consultation: Plans for EGD today -continue regular insulin sliding scale -continue antibiotic therapy at this time. Probable discontinuation tomorrow -Lifestyle modification education: Instructed on the need to stop smoking in any form. -repeat labs in a.m. -continue Protonix, add Carafate 1 g tablet before each meal Total time spent with patient discussing and formulating plan of care: 35 minutes. This medical document was created using an electronic medical record system with [employer] dictation system. Although this document has been carefully reviewed, there may still be some phonetic and typographical errors. These areas are purely typographical due to imperfections of the software programs, and do not reflect any compromise in the patient's medical care. Plan discussed with: Patient, Other (RN) Date of Service: Mar 14, 2025 Billing Provider: EUSEBIO JERONIMO NP Common Visit Codes: [id number] INP/OBS CARE(HIGH) EUSEBIO JERONIMO NP Mar 14, 2025 13:06
[2025-03-14 14:25] LABS: Hematocrit 37.8 % (41.0-53.0); Hemoglobin 13.0 g/dL (13.5-17.5); Mean Corpuscular Hemoglobin 31.0 pg (28.0-32.0); Mean Corpuscular Volume 90.1 fL (80.0-100.0); Nucleated Red Blood Cells % 0.1 %
[2025-03-14] MEDS ORDERED: GLYCOPYRROLATE 0.2 MG/ML 1ML VIAL ONE (15:36)
[2025-03-14] MEDS ORDERED: MIDAZOLAM HCL 2MG/2ML 2ml VIAL (1mg/ml) ONE (15:36)
[2025-03-14] MEDS ORDERED: fentaNYL CITRATE 100 MCG/2 ML VL ONE (15:36)
[2025-03-14] MEDS ORDERED: PROPOFOL 10 MG/ML 20 ML IV ONE (15:36)
[2025-03-14] MEDS ORDERED: LIDOCAINE 2% (LOCAL ANESTH.) PF 5ml SDV ONE (15:37)
[2025-03-14] MEDS ORDERED: ONDANSETRON HCL 4 MG/2 ML VIAL ONE (15:37)
--- NOTE | 2025-03-14 16:06 | DVHOP2 ---
Operative Report DATE OF OPERATION: 03/14/25 PROCEDURE: Upper Endoscopy with biopsy PREOPERATIVE INDICATION: The patient is a 54 -year-old male undergoing endoscopy for nausea vomiting and questionable coffee-ground emesis POSTOPERATIVE DIAGNOSES: 1. 1-2 cm sliding-type hiatal hernia with acute grade B to C linear erosive esophagitis with linear esophageal ulcers extending into the distal 5 cm of the esophagus from which biopsies were obtained 2. Mild antral gastritis with some pre-pyloric area antral scarring in a circumferential manner possible site of previous ulcer disease 3. Mild to moderate duodenitis of the duodenal bulb and postbulbar area otherwise normal examination up to the 2nd and 3rd part of the duodenum with no active bleeding PROCEDURE PERFORMED BY: Sae Henderson GI NURSE: Jacklyn SCOPE: Olympus videoendoscope. ASA CLASS: 2 PREOPERATIVE MEDICATIONS: Mac batsheva, Dr. Escobedo PROCEDURE IN DETAIL: After obtaining an informed consent, the patient was placed on left lateral decubitus position. The patient was then sedated with the above medications. A bite block was placed between his teeth. The endoscope was then passed through the oropharynx, into the esophagus, and through the stomach and pylorus up to the second and third part of the duodenum. The endoscope was then withdrawn. The 2nd and 3rd part of the duodenal were normal. Duodenal bulb and postbulbar area showed [id number] duodenitis Duodenal biopsies were obtained. The pre-pyloric area and antrum showed antral gastritis with some pylorospasm There was a circumferential scarring in the pre-pyloric area possibly a site of a previous healed ulcer. Biopsies were obtained from this area. On retroflexion the fundus cardia and angularis were normal. The endoscope was then withdrawn into distal esophagus. Patient had a 1-2 cm sliding-type hiatal hernia with the acute grade B to C linear erosive esophagitis There were esophageal ulcers extending into the distal 5 cm of the esophagus. Esophageal biopsies were obtained There was no fresh or old blood in the upper GI tract. The remaining distal and proximal esophagus and oropharynx were unremarkable The patient tolerated the procedure well without difficulty. COMPLICATIONS : None SPECIMENS: Duodenal biopsies Gastric biopsies Esophageal biopsies DISPOSITION: Transfer back to the floor Stable PLAN: 1. Await for biopsy result 2. Will place pt on Protonix 40 mg bid 3. Carafate suspension 1 g p.o. 4 times a day 4. Resume full liquid diet advance as tolerated 5. DC aspirin NSAIDs smoking alcohol 6. Outpatient follow up with me in 4-6 weeks to review results discuss further management and arrange outpatient elective screening colonoscopy SAE HENDERSON MD Mar 14, 2025 16:06
[2025-03-14] MEDS ORDERED: HYDROmorphone HCL 2 MG/ML VL/or syr IV PRN (16:15)
[2025-03-14] MEDS: SUCRALFATE 1 GM/10 ML ORAL SUSP PO SCH (17:22)
[2025-03-14] MEDS: PANTOPRAZOLE 40 MG TAB PO SCH (17:22)
[2025-03-15 01:28] VITALS: BP 135/96; PULSE 79; RESP 19; TEMP 98.8; O2SAT 99
[2025-03-15 05:00] VITALS: BP 156/93; PULSE 73; RESP 18; TEMP 98.1; O2SAT 93
[2025-03-15 06:32] LABS: Anion Gap 10 (5-15); Carbon Dioxide 28 mmol/L (20-31); Chloride 102 mmol/L (98-107); Sodium 140 mmol/L (136-145)
[2025-03-15 06:33] LABS: Calcium 9.4 mg/dL (8.7-10.4)
[2025-03-15 06:38] LABS: BUN/Creatinine Ratio 15.7 (10.0-20.0); Blood Urea Nitrogen 16 mg/dL (9-23); Glucose 90 mg/dL (74-106)
[2025-03-15 06:48] LABS: Potassium 3.1 mmol/L (3.5-5.1)
[2025-03-15 08:00] VITALS: O2SAT 100
[2025-03-15 08:51] VITALS: BP 156/81; PULSE 71; RESP 20; TEMP 97.7; O2SAT 97
--- NOTE | 2025-03-15 10:36 | DVHDS2 ---
Discharge Summary Date of Admission Mar 12, 2025 at 09:13 Date of Discharge: Mar 15, 2025 Admitting Diagnosis Uncontrolled diabetes mellitus Labs/Diagnostic Data: Laboratory Results Test 03/15/25 05:53 03/15/25 05:29 03/14/25 14:12 03/14/25 05:44 POC Glucose 98 mg/dl (70-106) Sodium Level 140 mmol/L (136-145) Potassium Level 3.1 mmol/L (3.5-5.1) Chloride Level 102 mmol/L (98-107) Carbon Dioxide Level 28 mmol/L (20-31) Anion Gap 10 (5-15) Blood Urea Nitrogen 16 mg/dL (9-23) Creatinine 1.02 mg/dL (0.700-1.30) Glomerular Filtration Rate Calc 86 mL/min (>90) BUN/Creatinine Ratio 15.7 (10.0-20.0) Serum Glucose 90 mg/dL (74-106) Calcium Level 9.4 mg/dL (8.7-10.4) White Blood Count 9.2 10^3/uL (4.4-10.8) Red Blood Count 4.19 10^6/uL (4.5-5.90) Hemoglobin 13.0 g/dL (13.5-17.5) Hematocrit 37.8 % (41.0-53.0) Mean Corpuscular Volume 90.1 fL (80.0-100.0) Mean Corpuscular Hemoglobin 31.0 pg (28.0-32.0) Mean Corpuscular Hemoglobin Concent 34.4 g/dL (32.0-36.0) Red Cell Distribution Width 14.6 % (11.8-14.3) Platelet Count 232 10^3/uL (140-450) Mean Platelet Volume 8.1 fL (6.9-10.8) Neutrophils (%) (Auto) 49.3 % (37.0-80.0) Lymphocytes (%) (Auto) 39.6 % (10.0-50.0) Monocytes (%) (Auto) 8.7 % (0.0-12.0) Eosinophils (%) (Auto) 1.9 % (0.0-7.0) Basophils (%) (Auto) 0.5 % (0.0-2.0) Neutrophils # (Auto) 4.6 10 ^3/uL (1.6-8.6) Lymphocytes # (Auto) 3.7 10 ^3/uL (0.4-5.4) Monocytes # (Auto) 0.8 10 ^3/uL (0-1.3) Eosinophils # (Auto) 0.2 10 ^3/uL (0-0.8) Basophils # (Auto) 0 10 ^3/uL (0-0.2) Nucleated Red Blood Cells 0.1 % Prothrombin Time 11.1 sec (9.3-11.8) Prothrombin Time INR 1.05 (0.9-1.15) Activated Partial Thromboplast Time 26.8 SEC (24.5-34.5) Test 03/13/25 06:00 03/12/25 18:30 03/12/25 08:58 03/12/25 08:37 Total Bilirubin 0.8 mg/dL (0.2-1.0) Aspartate Amino Transferase (AST) 23 U/L (13-40) Alanine Aminotransferase (ALT) 15 U/L (7-40) Alkaline Phosphatase 57 U/L (46-116) Total Protein 7.0 g/dL (5.7-8.2) Albumin 4.4 g/dL (3.2-4.8) Lactic Acid Level 0.9 mmol/L (0.4-2.0) Hemoglobin A1c 8.4 % A1C (<5.7) Triglycerides Level 68 mg/dL (< 150) Cholesterol Level 168 mg/dL (< 200) LDL Cholesterol 98 mg/dL (< 100) HDL Cholesterol 58 mg/dL (40-59) Thyroid Stimulating Hormone (TSH) 1.29 uIU/mL (0.55-4.78) Test 03/12/25 07:45 03/11/25 23:39 03/11/25 23:05 Urine Color Yellow (Yellow) Urine Clarity Clear (Clear) Urine pH 8.0 (5.0-9.0) Urine Specific [place] > 1.050 (1.001-1.035) Urine Protein 1+ (Negative) Urine Ketones 1+ (Negative) Urine Blood Negative /uL (Negative) Urine Nitrite Negative (Negative) Urine Bilirubin Negative (Negative) Urine Urobilinogen Normal mg/dL (Negative) Urine Leukocyte Esterase Negative /uL (Negative) Urine RBC 1 /hpf (0 - 3) Urine Microscopic WBC 1 /HPF (0-3) Urine Squamous Epithelial Cells None seen /hpf (<5) Urine Bacteria Few /hpf (None Seen) Urine Glucose 4+ mg/dL (Normal) Urine Opiates Screen Neg (NEGATIVE) Urine Fentanyl Screen Neg (NEGATIVE) Urine Barbiturates Screen Neg (NEGATIVE) Urine Phencyclidine Screen Neg (NEGATIVE) Urine Amphetamines Screen Neg (NEGATIVE) Urine Benzodiazepines Screen Neg (NEGATIVE) Urine Cocaine Screen Neg (NEGATIVE) Urine Cannabinoids Screen Pos (NEGATIVE) Blood Gas Specimen Type Arterial Blood Gas Sample Site Right brachial Blood Gas Patient Temperature 37.0 Arterial Blood Date Drawn [id number] Arterial Blood pH 7.721 (7.350-7.450) Arterial Blood Partial Pressure CO2 15.0 mmHg (35.0-48.0) Arterial Blood Partial Pressure O2 113.6 mmHg (83.0-108.0) Arterial Blood HCO3 19.0 mmol/L (21.0-28.0) Arterial Blood Oxygen Saturation 98.8 % (94.0-98.0) Arterial Blood Base Excess 2.7 mmol/L (-2.0-3.0) Arterial Blood Oxyhemoglobin 97.4 % (94.0-98.0) Arterial Blood Carboxyhemoglobin 1.1 % (0.5-1.5) Arterial Blood Methemoglobin 0.3 % (0.0-1.5) Nnamdi Test N/a Blood Gas Total Hemoglobin 14.70 g/dL (13.5-17.5) Blood Gas Modality Room air FiO2 % 21.0 Blood Gas Critical Value Read Back yes Blood Gas Notified Whom Blood Gas Notified Time [id number] Blood Gas Notified By beatriz najera, rt D-Dimer, Quantitative 0.46 mg/L FEU (0.0-0.49) Lipase 41 U/L (12-53) Beta-Hydroxybutyric Acid 0.728 mmol/L (< 0.4) Other Laboratory Tests 03/15/25 05:29 03/14/25 14:12 Brief Hx & Hospital Course: History of Present Illness 54-year-old male with a history of diabetes mellitus, hypertension, and CAD presents in the ED with abdominal pain, nausea, vomiting, and dizziness that began yesterday afternoon. The patient reports, the onset was gradual and provoked. The abdominal pain is localized to the lower abdomen, nonradiating and described as burning and sharp in quality. In the emergency department blood glucose was found into 45, and iron gap 17, CO2 21, beta-hydroxybuteric acid 0.728, lactic acid is 3.[address] abdomen and pelvis revealed 4 mm and 4.5 mm right lower lobe noncalcified pulmonary nodules, mild distal esophageal wall thickening, and moderate prostatic enlargement. Upon assessment, noted hematemesis. Patient denies melena. Reports continue using marijuana. Ex-tobacco use. Course of hospitalization: Patient was started on PPI, Carafate. GI consultation was obtained. He was continued on IV antibiotic therapy with Rocephin and Flagyl while in the hospital. Patient's leukocytosis improved. Patient underwent EGD with the following findings: POSTOPERATIVE DIAGNOSES: 1. 1-2 cm sliding-type hiatal hernia with acute grade B to C linear erosive esophagitis with linear esophageal ulcers extending into the distal 5 cm of the esophagus from which biopsies were obtained 2. Mild antral gastritis with some pre-pyloric area antral scarring in a circumferential manner possible site of previous ulcer disease 3. Mild to moderate duodenitis of the duodenal bulb and postbulbar area otherwise normal examination up to the 2nd and 3rd part of the duodenum with no active bleeding Patient will be continued on PPI and Carafate as an outpatient. He will continue all previous home medications. Patient will follow up with the discharge Clinic in 1-2 weeks as well as with Dr. Claudine Henderson in 2-3 weeks. Patient was agreeable with discharge plan. All questions answered. Physical examination General: Alert and Oriented x3. No acute distress. Well-nourished. Eyes: EOMI. Anicteric. HENT: Moist mucous membranes. Lungs: Clear to auscultation bilaterally. No accessory muscle use. Cardiovascular: Regular rate and rhythm. No murmur. No JVD. Abdomen: Soft, non-tender and non-distended. No palpable masses. Extremities: No edema. Non-tender. Skin: No rashes or lesions. Warm. Neurologic: No focal neurological deficits. CN II-XII grossly intact, but not individually tested. Psychiatric: Cooperative. Appropriate mood and affect. Total time spent with patient discussing and formulating plan of care: 35 minutes. This medical document was created using an electronic medical record system with Dragon computerized dictation system. Although this document has been carefully reviewed, there may still be some phonetic and typographical errors. These areas are purely typographical due to imperfections of the software programs, and do not reflect any compromise in the patient's medical care. Consults/Reason for consult Gastroenterology: Abdominal pain, probable GI bleed Operations or Procedures 03/14/2025: EGD Condition at Discharge: Guarded Final Diagnosis/Problems List GI bleed secondary to severe peptic ulcer disease Secondary diagnosis: -probable cannabinoid induced hyperemesis -diabetes mellitus -leukocytosis, probable sirs -esophagitis Discharge Disposition: Home Discharge Instruct/Medications Diet: Consistent carbohydrate Activity: No Restrictions, As Tolerated Follow Up/Referral: Follow up with Claudine Henderson in 2-3 weeks Follow up with PCP in 1-2 weeks Medications: Continue all previous home medications Protonix 40 mg p.o. twice a day times 30 days Carafate 1 g tablet a.c. and HS times 30 days Durable Medical Equipment Blood Glucose Monitoring Suppl (D-Care Glucometer Kit/Glu W/Device), [employer], (DME) 36 Discharge Statement: "Patient was advised to return to the ER or call 911 if any headaches, dizziness, shortness of breath, chest pain, abdominal pain, bleeding, fevers, or worsening of medical condition. Patient was counseled about treatment plan, medications, possible side effects, patientverbalized understanding. All questions were answered to the best of my ability. This discharge took greater then 30 minutes in planning, reviewing documentation, counseling the patient, and discussing with other team members." ASSESSMENT ASSESSMENT Assessment GI bleed secondary to severe peptic ulcer disease Date of Service: Mar 15, 2025 Billing Provider: EUSEBIO JERONIMO NP Common Visit Codes: 09156-VDT/OBS DISCH DAY >30min EUSEBIO JERONIMO NP Mar 15, 2025 10:36
[2025-03-15] MEDS ORDERED: PANT40TA2 PO (10:37)
[2025-03-15] MEDS ORDERED: SUCR1TAB31 OR (10:37)
[2025-03-15] MEDS: POTASSIUM CHLORIDE 40 MEQ, LIDOCAINE 1% (LOCAL ANESTH.) 4 ML in SODIUM CHL 0.9% 250 ML IV ONE (11:21)
--- NOTE | 2025-03-15 13:57 | DVHPN2 ---
Progress Note - Dictate Date Seen: Mar 15, 2025 Medical Necessity Reason Pt with a Central, PICC or Fol: No Subjective No new complaints Tolerating diet vital signs Vital Sign Date Time Temp Pulse Resp B/P (MAP) Pulse Ox O2 Delivery O2 Flow Rate FiO2 03/15/25 08:51 97.7 71 20 156/81 (106) 97 97.7 03/15/25 08:00 Room Air* 0 21 Total Intake and Output 03/14/25 03/14/25 03/15/25 15:00 23:00 07:00 Intake Total 250 ml 100 ml 1000 ml Balance 250 ml 100 ml 1000 ml medications Current Medications Medications Dose Ordered Sig/Alber Route Start Time Stop Time Status Last Admin Dose Admin Diagnostic Test (Pha) 1 strip ACHS 03/12/25 11:30 03/15/25 11:51 1 STRIP Insulin Human Regular ACHS SC 03/12/25 11:30 03/15/25 12:14 3 UNITS Dextrose 50 ml UD PRN IV 03/12/25 08:45 Acetaminophen/ Hydrocodone Bitart 1 tab Q4HP PRN PO 03/12/25 09:15 03/15/25 09:57 1 TAB Ondansetron HCl 4 mg Q4HP PRN IV 03/12/25 09:15 03/13/25 10:30 4 MG Acetaminophen 650 mg Q6HP PRN PO 03/12/25 09:15 03/13/25 06:17 650 MG Morphine Sulfate 2 mg Q4HPRN PRN IV 03/12/25 09:15 03/15/25 04:54 2 MG Empaglifozin 10 mg DAILY@BREAKFAST PO 03/13/25 08:00 03/15/25 09:36 10 MG Insulin Glargine 12 units HS SC 03/12/25 22:00 03/14/25 22:08 12 UNITS Metronidazole 100 ml @ 100 mls/hr Q8HR IV 03/12/25 14:00 03/15/25 06:39 100 MLS/HR Ceftriaxone Sodium 50 ml @ 100 mls/hr DAILY@09 IV 03/13/25 09:00 03/15/25 09:35 100 MLS/HR Sucralfate 1 gm ACHS PO 03/13/25 17:00 03/15/25 11:52 1 GM Sucralfate 1 gm QID@0600,1130,1700,2200 PO 03/14/25 17:00 03/15/25 06:05 1 GM Pantoprazole Sodium 40 mg BID@0600,1700 PO 03/14/25 17:00 03/15/25 06:05 40 MG objective General Appearance: Alert, Oriented X3, Cooperative, No acute distress, HEENT: Atraumatic, PERRLA Lungs: Clear to auscultation, Normal air movement, Other Cardiovascular: Regular rate, Normal S1, Normal S2, No murmurs, Gallops, Rubs, Other Abdomen: Normal bowel sounds, Soft, No tenderness, No hepatospenomegaly, No masses, Other Back: Flank Tenderness, Midline Tenderness Musculoskeletal: Normal sensory function, Normal motor function Extremities: No edema, Normal pulses, No tenderness/swelling Neuro: Normal gait, Normal speech laboratory and microbiology Laboratory Tests 03/15/25 05:29 03/14/25 14:12 Test 03/15/25 05:29 Range/Units Serum Glucose 90 74-106 mg/dL Problems(with codes): (1) Hiatal hernia with GERD and esophagitis (2) Gastritis Prognosis Plan Discharge planning is in progress PPI plus Carafate DC aspirin NSAIDs smoking alcohol Outpatient follow up with GI Services for elective colonoscopy Plan discussed with: Patient, Other (Nurse) SAE MARRERO MD Mar 15, 2025 13:57
== END 2025-03-15 15:32 | disposition home or self-care (01) | DRG 241 ==
LOC: EDSEX 22:36 → EDBD 22:36 → ER 22:36 → OVERFLOW 03-12 09:13 → EAST 03-12 13:26
PROVIDERS: ADMIT Nurse Practitioner Acute Care; ATTEND Nurse Practitioner Acute Care
PROC: 0DB38ZX Excision of Lower Esophagus, Via Natural or Artificial Opening Endoscopic, Diagnostic (ICD-10-PCS; 2025-03-14)
PROC: 0DB68ZX Excision of Stomach, Via Natural or Artificial Opening Endoscopic, Diagnostic (ICD-10-PCS; 2025-03-14)
PROC: 0DB98ZX Excision of Duodenum, Via Natural or Artificial Opening Endoscopic, Diagnostic (ICD-10-PCS; principal; 2025-03-14 15:48)
DX: K27.4 Chronic or unspecified peptic ulcer, site unspecified, with hemorrhage (principal); N17.0 Acute kidney failure with tubular necrosis; E11.10 Type 2 diabetes mellitus with ketoacidosis without coma; K22.11 Ulcer of esophagus with bleeding; R65.10 Systemic inflammatory response syndrome (SIRS) of non-infectious origin without acute organ dysfunction; E86.0 Dehydration; K29.71 Gastritis, unspecified, with bleeding; E11.65 Type 2 diabetes mellitus with hyperglycemia; E66.9 Obesity, unspecified; I10 Essential (primary) hypertension; Z68.32 Body mass index [BMI] 32.0-32.9, adult; K31.3 Pylorospasm, not elsewhere classified; I25.10 Atherosclerotic heart disease of native coronary artery without angina pectoris; N40.0 Benign prostatic hyperplasia without lower urinary tract symptoms; K44.9 Diaphragmatic hernia without obstruction or gangrene; F17.210 Nicotine dependence, cigarettes, uncomplicated; F12.90 Cannabis use, unspecified, uncomplicated; Z91.199 Patient's noncompliance with other medical treatment and regimen due to unspecified reason; Z83.3 Family history of diabetes mellitus; Z82.49 Family history of ischemic heart disease and other diseases of the circulatory system; K29.81 Duodenitis with bleeding
CPT/HCPCS: 36415; 36600; 43239; 71045; 71250; 74177; 80048; 80053; 80061; 80307; 81001; 82010; 82805; 82962; 83036; 83605; 83690; 84443; 85025; 85379; 85610; 85730; 86850; 86900; 86901; 87040; 93005; 96361; 96365; 96375; G0378; J1815; J2003; J2250; J2405; J2470; J2543; J2704; J3490